=== PATIENT | female | born 1965 | race Caucasian/White ===

== ENCOUNTER 2019-12-28 08:45 | Inpatient (IN) | payer MEDICARE, MEDICAID ==
[~2019-12-28] VITALS: Ht 162.6 cm; Wt 82.2 kg
[2019-12-28] MEDS ORDERED: OLANZapine 5 MG RAPDIS TABLET PO PRN (11:45)
[2019-12-28] MEDS ORDERED: LORazepam 2 MG TABLET PO PRN (11:45)
[2019-12-28] MEDS ORDERED: GuaiFENesin/D-METHORPHAN [SUGAR-FREE] 200-20MG/10 ML SYRUP UDCUP PO PRN (11:45)
[2019-12-28] MEDS ORDERED: PROMETHAZINE HCL 25 MG TABLET PO PRN (11:45)
[2019-12-28] MEDS ORDERED: LOPERAMIDE HCL 2 MG CAPSULE PO PRN (11:45)
[2019-12-28] MEDS ORDERED: ACETAMINOPHEN 325 MG TABLET PO PRN (11:45)
[2019-12-28] MEDS ORDERED: MAG HYDROX/AL HYDROX/SIMETH ES 30 ML SUSPENSION UDCUP PO PRN (11:45)
[2019-12-28] MEDS ORDERED: MAGNESIUM HYDROXIDE SUSPENSION 30 ML UDCUP PO PRN (11:45)
[2019-12-28] MEDS ORDERED: TUBERCULIN, PURIFIED PROTEIN DERIVATIVE 5 TU/0.1 ML SYRINGE ID ONE (11:45)
[2019-12-28] MEDS ORDERED: ZOLPIDEM TARTRATE 10 MG TABLET PO PRN (11:45)
[2019-12-28] MEDS ORDERED: HydrOXYzine PAMOATE 50 MG CAPSULE PO PRN (11:45)
[2019-12-28 12:09] VITALS: BP 100/63
[2019-12-28] MEDS ORDERED: PNEUMOCOCCAL VACCINE POLYVALENT 0.5 ML VIAL [PPSV23] IM ONE (13:15)
[2019-12-28] MEDS ORDERED: QUEtiapine FUMARATE 100 MG TABLET PO PRN (13:45)
[2019-12-28] MEDS: THIAMINE 100 MG TABLET PO SCH (17:12)
[2019-12-28] MEDS: NITROFURANTOIN/NITROFURAN MAC 100 MG CAPSULE [MACROBID] PO SCH (18:29)
[2019-12-28 18:30] VITALS: BP 105/69
[2019-12-28] MEDS: IBUPROFEN 600 MG TABLET PO PRN (18:30)
[2019-12-28 20:22] VITALS: BP 122/81
[2019-12-28] MEDS: QUEtiapine FUMARATE 200 MG TABLET PO SCH (20:22)
[2019-12-28] MEDS ORDERED: OLANZapine 5 MG RAPDIS TABLET PO SCH (21:00)
[2019-12-29 06:48] LABS: BASOPHILS % (AUTO) 0.1 % (0.0-2.0); EOSINOPHILS % (AUTO) 0 % (1.0-6.0); HEMATOCRIT 36.7 % (36-46); HEMOGLOBIN 12.5 g/dL (12.0-16.0); LYMPHOCYTES # (AUTO) 1.4 K/uL (1.0-4.8); LYMPHOCYTES % (AUTO) 32.6 % (22.0-44.0); MEAN CORPUSCULAR HEMOGLOBIN 31.2 pg (26.0-34.0); MEAN CORPUSCULAR VOLUME 92 fL (80-100); MONOCYTES # (AUTO) 0.5 K/uL (0.1-1.0); MONOCYTES % (AUTO) 11.9 % (2.0-9.0); NEUTROPHILS # (AUTO) 2.5 K/uL (1.8-7.7); NEUTROPHILS % (AUTO) 55.4 % (40.0-70.0); PLATELET COUNT (AUTO) 228 K/uL (150-450); RED CELL DISTRIBUTION WIDTH 12.6 % (11.5-14.5)
[2019-12-29 07:17] LABS: ALANINE AMINOTRANSFERASE 18 U/L (12-78); ALBUMIN 3.3 g/dL (3.4-5.0); ALKALINE PHOSPHATASE 91 U/L (46-116); ANION GAP 10 mmol/L (8-16); ASPARTATE AMINOTRANSFERASE 11 U/L (15-37); BILIRUBIN,TOTAL 0.2 mg/dL (0.1-1.0); CALCIUM, TOTAL 9.3 mg/dL (8.8-10.5); CARBON DIOXIDE 24 mmol/L (22-29); CHLORIDE 106 mmol/L (98-107); CHOL/HDL RATIO 3.4 (3.9-5.7); CHOLESTEROL 205 mg/dL (131-200); CREATININE 0.95 mg/dL (0.60-1.30); FREE T4 (FREE THYROXINE) 0.85 ng/dL (0.76-1.46); GLOMERULAR FILTR. RATE CALC > 60 mL/min (>60); GLUCOSE,RANDOM 109 mg/dL (70-110); HDL CHOLESTEROL 60 mg/dL (40-60); LDL CHOL (CALC.) 131 mg/dL (0-130); POTASSIUM 4.2 mmol/L (3.5-5.1); SODIUM SERUM 140 mmol/L (136-145); TOTAL PROTEIN, SERUM 6.1 g/dL (6.4-8.2); TRIGLYCERIDES 72 mg/dL (15-150); UREA NITROGEN, BLOOD 25 mg/dL (7-18)
[2019-12-29 07:29] LABS: HEMOGLOBIN A1C 4.9 % (3.8-5.6)
[2019-12-29 08:00] VITALS: BP 98/63
[2019-12-29] MEDS ORDERED: FLUoxetine HCL 20 MG CAPSULE PO SCH (09:00)
[2019-12-29] MEDS ORDERED: OMEGA-3/DHA/EPA/FISH OIL 1,000 MG CAPSULE PO SCH (09:00)
[2019-12-29] MEDS ORDERED: FOLIC ACID 1 MG TABLET PO SCH (09:00)
[2019-12-29] MEDS ORDERED: NALTREXONE HCL 50 MG TABLET PO SCH (09:00)
[2019-12-29] MEDS ORDERED: MULTIVITAMINS WITH MINERALS, THERAPEUTIC TABLET PO SCH (09:00)
[2019-12-29] MEDS: NITROFURANTOIN/NITROFURAN MAC 100 MG CAPSULE [MACROBID] PO SCH ×2 (10:05→16:08)
[2019-12-29] MEDS: THIAMINE 100 MG TABLET PO SCH ×2 (10:05→16:08)
[2019-12-29] MEDS: BuPROPion HCL XL 150 MG ER TABLET PO SCH (10:06)
[2019-12-29] MEDS: IBUPROFEN 600 MG TABLET PO PRN (13:15)
[2019-12-29 16:52] VITALS: BP 117/65
[2019-12-29] MEDS: QUEtiapine FUMARATE 200 MG TABLET PO SCH (20:05)
[2019-12-29] MEDS ORDERED: PROMETHAZINE HCL 25 MG TABLET PO PRN ×2 (21:30)
[2019-12-29] MEDS ORDERED: QUEtiapine FUMARATE 100 MG TABLET PO PRN (21:30)
[2019-12-29] MEDS ORDERED: LORazepam 1 MG TABLET PO PRN (21:30)
[2019-12-29] MEDS ORDERED: ZOLPIDEM TARTRATE 10 MG TABLET PO PRN (21:30)
[2019-12-29] MEDS ORDERED: LOPERAMIDE HCL 2 MG CAPSULE PO PRN ×2 (21:30)
[2019-12-29] MEDS ORDERED: HydrOXYzine PAMOATE 50 MG CAPSULE PO PRN (21:30)
[2019-12-29] MEDS ORDERED: MAG HYDROX/AL HYDROX/SIMETH ES 30 ML SUSPENSION UDCUP PO PRN (21:30)
[2019-12-29] MEDS ORDERED: GuaiFENesin/D-METHORPHAN [SUGAR-FREE] 200-20MG/10 ML SYRUP UDCUP PO PRN (21:30)
[2019-12-29 23:40] VITALS: BP 106/66
[2019-12-29] MEDS: IBUPROFEN 800 MG TABLET PO PRN (23:41)
[2019-12-30] MEDS: BuPROPion HCL XL 150 MG ER TABLET PO SCH (08:52)
[2019-12-30] MEDS: IBUPROFEN 800 MG TABLET PO PRN ×2 (08:54→16:54)
[2019-12-30 08:56] VITALS: BP 110/72
[2019-12-30 09:13] VITALS: BP 112/73
[2019-12-30 09:56] VITALS: BP 109/67
[2019-12-30 16:38] VITALS: BP 94/62
[2019-12-30 16:59] VITALS: BP 102/78
[2019-12-30] MEDS: QUEtiapine FUMARATE 200 MG TABLET PO SCH (20:10)
[2019-12-31 08:00] VITALS: BP 126/82
[2019-12-31] MEDS: BuPROPion HCL XL 150 MG ER TABLET PO SCH (08:16)
[2019-12-31] MEDS: IBUPROFEN 800 MG TABLET PO PRN (12:41)
[2019-12-31] MEDS: MAGNESIUM HYDROXIDE SUSPENSION 30 ML UDCUP PO PRN (13:17)
[2019-12-31 16:20] VITALS: BP 101/81
[2019-12-31] MEDS: QUEtiapine FUMARATE 200 MG TABLET PO SCH (21:16)
[2020-01-01 02:21] VITALS: BP 94/61
[2020-01-01] MEDS: IBUPROFEN 800 MG TABLET PO PRN (02:22)
[2020-01-01 08:00] VITALS: BP 106/65
[2020-01-01] MEDS: BuPROPion HCL XL 150 MG ER TABLET PO SCH (08:05)
[2020-01-01] MEDS: MODAFINIL 100 MG TABLET PO SCH (08:05)
[2020-01-01 16:30] VITALS: BP 131/75
[2020-01-01] MEDS: QUEtiapine FUMARATE 200 MG TABLET PO SCH (20:23)
[2020-01-02 05:17] VITALS: BP 120/84
[2020-01-02] MEDS: IBUPROFEN 800 MG TABLET PO PRN (05:17)
[2020-01-02 08:00] VITALS: BP 108/66
[2020-01-02] MEDS: MAGNESIUM HYDROXIDE SUSPENSION 30 ML UDCUP PO PRN (08:36)
[2020-01-02] MEDS: BuPROPion HCL XL 150 MG ER TABLET PO SCH ×2 (08:37→09:48)
[2020-01-02] MEDS: MODAFINIL 100 MG TABLET PO SCH (10:25)
[2020-01-02 16:08] VITALS: BP 136/72
[2020-01-02] MEDS: QUEtiapine FUMARATE 200 MG TABLET PO SCH (20:39)
[2020-01-03 02:50] VITALS: BP 120/78
[2020-01-03] MEDS: IBUPROFEN 800 MG TABLET PO PRN ×2 (02:53→19:04)
[2020-01-03] MEDS: MODAFINIL 100 MG TABLET PO SCH (08:51)
[2020-01-03] MEDS: BuPROPion HCL XL 150 MG ER TABLET PO SCH (08:51)
[2020-01-03 09:00] VITALS: BP 108/69
[2020-01-03 16:08] VITALS: BP 98/62
[2020-01-03 19:02] VITALS: BP 102/67
[2020-01-03] MEDS: QUEtiapine FUMARATE 200 MG TABLET PO SCH (20:06)
[2020-01-04 04:30] VITALS: BP 118/76
[2020-01-04] MEDS: IBUPROFEN 800 MG TABLET PO PRN (04:31)
[2020-01-04] MEDS: BuPROPion HCL XL 150 MG ER TABLET PO SCH (09:14)
[2020-01-04] MEDS: MODAFINIL 100 MG TABLET PO SCH (09:20)
[2020-01-04 16:00] VITALS: BP 119/65
[2020-01-04] MEDS: MAGNESIUM HYDROXIDE SUSPENSION 30 ML UDCUP PO PRN (17:26)
[2020-01-04] MEDS: QUEtiapine FUMARATE 200 MG TABLET PO SCH (20:29)
[2020-01-05] MEDS: BuPROPion HCL XL 150 MG ER TABLET PO SCH (08:05)
[2020-01-05] MEDS: DOCUSATE SODIUM 250 MG CAPSULE PO SCH ×2 (08:05→16:03)
[2020-01-05 08:45] VITALS: BP 103/76
[2020-01-05] MEDS: MODAFINIL 100 MG TABLET PO SCH (09:00)
[2020-01-05] MEDS: IBUPROFEN 800 MG TABLET PO PRN (13:45)
[2020-01-05 16:00] VITALS: BP 100/68
[2020-01-05] MEDS: QUEtiapine FUMARATE 200 MG TABLET PO SCH (20:08)
[2020-01-06 08:00] VITALS: BP 106/68
[2020-01-06] MEDS: DOCUSATE SODIUM 250 MG CAPSULE PO SCH ×2 (08:06→16:17)
[2020-01-06] MEDS: BuPROPion HCL XL 150 MG ER TABLET PO SCH (08:06)
[2020-01-06] MEDS: IBUPROFEN 800 MG TABLET PO PRN ×2 (10:40→22:38)
[2020-01-06 16:30] VITALS: BP 109/70
[2020-01-06] MEDS: QUEtiapine FUMARATE 200 MG TABLET PO SCH (20:26)
[2020-01-06 22:33] VITALS: BP 110/68
[2020-01-07 08:00] VITALS: BP 113/76
[2020-01-07] MEDS: IBUPROFEN 800 MG TABLET PO PRN ×2 (08:18→16:18)
[2020-01-07] MEDS: DOCUSATE SODIUM 250 MG CAPSULE PO SCH ×2 (08:18→16:06)
[2020-01-07] MEDS: BuPROPion HCL XL 150 MG ER TABLET PO SCH (08:19)
[2020-01-07 16:31] VITALS: BP 94/65
[2020-01-07] MEDS: QUEtiapine FUMARATE 200 MG TABLET PO SCH (20:06)
[2020-01-07] MEDS ORDERED: BUPR-47 PO (20:23)
[2020-01-07] MEDS ORDERED: QUET200T29 PO (20:23)
[2020-01-07 20:55] VITALS: BP 102/69
[2020-01-08] MEDS: IBUPROFEN 800 MG TABLET PO PRN ×2 (05:13→11:22)
[2020-01-08] MEDS: BuPROPion HCL XL 150 MG ER TABLET PO SCH (09:09)
[2020-01-08] MEDS: DOCUSATE SODIUM 250 MG CAPSULE PO SCH (09:09)
[2020-01-08 09:38] VITALS: BP 98/58
[2020-01-08] MEDS ORDERED: DOCU-350 PO (13:16)
== END 2020-01-08 15:15 | disposition home or self-care (01) | DRG 885 ==
LOC: B3A 10:45 → UNDOADMIN 10:45 → 3EX 10:46
PROVIDERS: ADMIT Psychiatry & Neurology Psychiatry; ATTEND Psychiatry & Neurology Psychiatry
DX: F33.2 Major depressive disorder, recurrent severe without psychotic features (principal); R45.851 Suicidal ideations; F25.9 Schizoaffective disorder, unspecified; F22 Delusional disorders; F25.1 Schizoaffective disorder, depressive type; Z91.14 Patient's other noncompliance with medication regimen; Z55.9 Problems related to education and literacy, unspecified; Z59.9 Problem related to housing and economic circumstances, unspecified; Z65.3 Problems related to other legal circumstances; Z79.899 Other long term (current) drug therapy; Z88.0 Allergy status to penicillin; Z28.21 Immunization not carried out because of patient refusal
CPT/HCPCS: 83036; 84439; 84443; 86592; 93005; G0378

== ENCOUNTER 2020-12-21 19:41 | Inpatient (IN) | payer MEDICARE, MEDICAID ==
[~2020-12-21] VITALS: Ht 162.6 cm; Wt 87.2 kg
[~2020-12-21 19:41] MED LIST: BUPR-93 PO; QUET200T PO
[2020-12-21] MEDS ORDERED: LORazepam 2 MG TABLET PO PRN (21:00)
[2020-12-21] MEDS ORDERED: HALOPERIDOL 5 MG TABLET PO PRN (21:00)
[2020-12-21] MEDS ORDERED: ZOLPIDEM TARTRATE 10 MG TABLET PO PRN (21:00)
[2020-12-21 21:04] LABS: BASOPHILS % (AUTO) 0.4 % (0.0-2.0); EOSINOPHILS % (AUTO) 0 % (1.0-6.0); HEMATOCRIT 35.9 % (36-46); HEMOGLOBIN 11.6 g/dL (12.0-16.0); LYMPHOCYTES # (AUTO) 1.7 K/uL (1.0-4.8); LYMPHOCYTES % (AUTO) 23.9 % (22.0-44.0); MEAN CORPUSCULAR HGB CONC 32.3 G/dL (31.0-37.0); MEAN CORPUSCULAR VOLUME 87 fL (80-100); MONOCYTES # (AUTO) 0.7 K/uL (0.1-1.0); MONOCYTES % (AUTO) 10.3 % (2.0-9.0); NEUTROPHILS # (AUTO) 4.7 K/uL (1.8-7.7); NEUTROPHILS % (AUTO) 65.4 % (40.0-70.0); PLATELET COUNT (AUTO) 256 K/uL (150-450); RED BLOOD CELL COUNT(AUTO) 4.14 MIL/uL (4.00-5.20); RED CELL DISTRIBUTION WIDTH 13.6 % (11.5-14.5)
[2020-12-21 21:14] LABS: ANION GAP 11 mmol/L (8-16); CALCIUM, TOTAL 8.7 mg/dL (8.8-10.5); CARBON DIOXIDE 27 mmol/L (22-29); CHLORIDE 105 mmol/L (98-107); CREATININE 1.01 mg/dL (0.60-1.30); GLOMERULAR FILTR. RATE CALC 56 mL/min (>60); GLUCOSE,RANDOM 119 mg/dL (70-110); POTASSIUM 3.9 mmol/L (3.5-5.1); SODIUM SERUM 143 mmol/L (136-145); UREA NITROGEN, BLOOD 29 mg/dL (7-18)
[2020-12-21 21:20] LABS: ALANINE AMINOTRANSFERASE 23 U/L (12-78); ALBUMIN 3.8 g/dL (3.4-5.0); ALKALINE PHOSPHATASE 141 U/L (46-116); ASPARTATE AMINOTRANSFERASE 12 U/L (15-37); BILIRUBIN,TOTAL 0.1 mg/dL (0.1-1.0); TOTAL PROTEIN, SERUM 7.1 g/dL (6.4-8.2)
[2020-12-21 22:49] LABS: COVID AG,FIA SOURCE NASOPHARYNGEAL
[2020-12-21] MEDS ORDERED: QUEtiapine FUMARATE 100 MG TABLET PO ONE (23:45)
[2020-12-22 02:16] LABS: CHOL/HDL RATIO 3.5 (3.9-5.7); CHOLESTEROL 192 mg/dL (131-200); HDL CHOLESTEROL 55 mg/dL (40-60); LDL CHOL (CALC.) 111 mg/dL (0-130); TRIGLYCERIDES 128 mg/dL (15-150)
[2020-12-22] MEDS ORDERED: NICOTINE 14 MG/24 HOUR PATCH TD PRN (06:30)
[2020-12-22] MEDS ORDERED: GuaiFENesin/D-METHORPHAN [SUGAR-FREE] 200-20MG/10 ML SYRUP UDCUP PO PRN (06:30)
[2020-12-22] MEDS ORDERED: CloNIDine HCL 0.1 MG TABLET PO PRN (06:30)
[2020-12-22] MEDS ORDERED: PETROLATUM,WHITE 28 GM JELLY TP PRN (06:30)
[2020-12-22] MEDS ORDERED: DOCUSATE SODIUM 100 MG CAPSULE PO PRN (06:30)
[2020-12-22] MEDS ORDERED: ONDANSETRON HCL 4 MG TABLET PO PRN (06:30)
[2020-12-22] MEDS ORDERED: MAGNESIUM HYDROXIDE SUSPENSION 30 ML UDCUP PO PRN (06:30)
[2020-12-22] MEDS ORDERED: ACETAMINOPHEN 325 MG TABLET PO PRN (06:30)
[2020-12-22] MEDS ORDERED: LOPERAMIDE HCL 2 MG CAPSULE PO PRN (06:30)
[2020-12-22] MEDS ORDERED: ALBUTEROL SULFATE HFA 90 MCG/PUFF 8 GM INHALER IH PRN (06:30)
[2020-12-22 08:48] VITALS: BP 131/78
[2020-12-22 16:04] VITALS: BP 121/77
[2020-12-22 16:47] LABS: GLUCOMETER DEV NAME(LOC) ERT.5; GLUCOSE,POINT OF CARE 147 MG/DL (70-110)
[2020-12-22] MEDS: QUEtiapine FUMARATE 200 MG TABLET PO SCH (21:24)
[2020-12-23] MEDS: IBUPROFEN 400 MG TABLET PO PRN (04:51)
[2020-12-23 04:56] VITALS: BP 103/58
[2020-12-23] MEDS: BuPROPion HCL XL 150 MG ER TABLET PO SCH (08:27)
[2020-12-23 08:44] VITALS: BP 109/70
[2020-12-23 11:59] VITALS: BP 124/67
[2020-12-23] MEDS: ASPIRIN/ACETAMINOPHEN/CAFFEINE 250-250-65 MG TABLET PO PRN ×2 (11:59→18:41)
[2020-12-23 16:16] VITALS: BP 113/77
[2020-12-23 18:41] VITALS: BP 134/74
[2020-12-23] MEDS: QUEtiapine FUMARATE 200 MG TABLET PO SCH (20:13)
[2020-12-24 09:12] VITALS: BP 103/63
[2020-12-24] MEDS: BuPROPion HCL XL 150 MG ER TABLET PO SCH (09:47)
[2020-12-24] MEDS: ASPIRIN/ACETAMINOPHEN/CAFFEINE 250-250-65 MG TABLET PO PRN (14:32)
[2020-12-24 14:34] VITALS: BP 142/98
[2020-12-24 16:17] VITALS: BP 137/85
[2020-12-24] MEDS: QUEtiapine FUMARATE 200 MG TABLET PO SCH (20:13)
[2020-12-25 01:30] VITALS: BP 122/80
[2020-12-25] MEDS: ASPIRIN/ACETAMINOPHEN/CAFFEINE 250-250-65 MG TABLET PO PRN ×2 (01:37→19:58)
[2020-12-25] MEDS: BuPROPion HCL XL 150 MG ER TABLET PO SCH (08:18)
[2020-12-25 16:31] VITALS: BP 122/81
[2020-12-25 19:55] VITALS: BP 112/67
[2020-12-25] MEDS: QUEtiapine FUMARATE 200 MG TABLET PO SCH (20:42)
[2020-12-26] MEDS: BuPROPion HCL XL 150 MG ER TABLET PO SCH (07:56)
[2020-12-26 09:30] VITALS: BP 112/73
[2020-12-26 11:26] VITALS: BP 118/76
[2020-12-26] MEDS: ASPIRIN/ACETAMINOPHEN/CAFFEINE 250-250-65 MG TABLET PO PRN (11:26)
[2020-12-26 16:00] VITALS: BP 107/68
[2020-12-26] MEDS: QUEtiapine FUMARATE 200 MG TABLET PO SCH (20:01)
[2020-12-27] MEDS: BuPROPion HCL XL 150 MG ER TABLET PO SCH (08:07)
[2020-12-27 08:20] VITALS: BP 104/69
[2020-12-27 09:17] VITALS: BP 127/74
[2020-12-27] MEDS: ASPIRIN/ACETAMINOPHEN/CAFFEINE 250-250-65 MG TABLET PO PRN (09:17)
[2020-12-27 17:09] VITALS: BP 136/61
[2020-12-27 17:10] VITALS: BP 139/84
[2020-12-27] MEDS: QUEtiapine FUMARATE 200 MG TABLET PO SCH (20:33)
[2020-12-28] MEDS: ASPIRIN/ACETAMINOPHEN/CAFFEINE 250-250-65 MG TABLET PO PRN ×2 (02:27→16:43)
[2020-12-28] MEDS: BuPROPion HCL XL 150 MG ER TABLET PO SCH (08:41)
[2020-12-28 09:00] VITALS: BP 110/77
[2020-12-28 13:31] LABS: COVID AG,FIA SOURCE NASOPHARYNGEAL
[2020-12-28 16:50] VITALS: BP 115/85
[2020-12-28] MEDS: QUEtiapine FUMARATE 200 MG TABLET PO SCH (20:12)
[2020-12-29 04:45] VITALS: BP 113/80
[2020-12-29] MEDS: ASPIRIN/ACETAMINOPHEN/CAFFEINE 250-250-65 MG TABLET PO PRN ×2 (04:56→20:02)
[2020-12-29] MEDS: BuPROPion HCL XL 150 MG ER TABLET PO SCH (10:41)
[2020-12-29 16:50] VITALS: BP 115/69
[2020-12-29] MEDS: QUEtiapine FUMARATE 200 MG TABLET PO SCH (21:03)
[2020-12-30] MEDS: ASPIRIN/ACETAMINOPHEN/CAFFEINE 250-250-65 MG TABLET PO PRN ×2 (06:10→18:54)
[2020-12-30 08:00] VITALS: BP 121/89
[2020-12-30] MEDS: BuPROPion HCL XL 150 MG ER TABLET PO SCH (08:03)
[2020-12-30 16:14] VITALS: BP 110/68
[2020-12-30 18:54] VITALS: BP 111/72
[2020-12-30] MEDS: QUEtiapine FUMARATE 200 MG TABLET PO SCH (20:29)
[2020-12-31] MEDS: ASPIRIN/ACETAMINOPHEN/CAFFEINE 250-250-65 MG TABLET PO PRN ×3 (05:59→14:07)
[2020-12-31] MEDS: BuPROPion HCL XL 150 MG ER TABLET PO SCH (08:08)
[2020-12-31 08:59] VITALS: BP 141/88
[2020-12-31 09:04] VITALS: BP 141/88
[2020-12-31 14:07] VITALS: BP 126/74
[2020-12-31 15:53] VITALS: BP 119/75
[2020-12-31] MEDS: IBUPROFEN 400 MG TABLET PO PRN (15:53)
[2020-12-31] MEDS: QUEtiapine FUMARATE 200 MG TABLET PO SCH (20:52)
[2021-01-01] MEDS: ASPIRIN/ACETAMINOPHEN/CAFFEINE 250-250-65 MG TABLET PO PRN ×2 (06:49→15:50)
[2021-01-01] MEDS: BuPROPion HCL XL 150 MG ER TABLET PO SCH (08:12)
[2021-01-01 15:50] VITALS: BP 125/77
[2021-01-01 16:44] VITALS: BP 123/80
[2021-01-01] MEDS ORDERED: LORazepam 2 MG/ML VIAL ONE (19:04)
[2021-01-01] MEDS ORDERED: LORazepam 2 MG/ML VIAL IM ONE (19:04)
[2021-01-01] MEDS ORDERED: HALOPERIDOL LACTATE 5 MG/ML VIAL IM ONE (19:04)
[2021-01-01] MEDS ORDERED: HALOPERIDOL LACTATE 5 MG/ML VIAL ONE (19:05)
[2021-01-01] MEDS: QUEtiapine FUMARATE 200 MG TABLET PO SCH (20:45)
[2021-01-02] MEDS: BuPROPion HCL XL 150 MG ER TABLET PO SCH (09:31)
[2021-01-02] MEDS: ASPIRIN/ACETAMINOPHEN/CAFFEINE 250-250-65 MG TABLET PO PRN ×2 (11:05→20:05)
[2021-01-02 11:30] VITALS: BP 110/69
[2021-01-02 12:30] VITALS: BP 119/63
[2021-01-02] MEDS: QUEtiapine FUMARATE 200 MG TABLET PO SCH (20:05)
[2021-01-03] MEDS: ASPIRIN/ACETAMINOPHEN/CAFFEINE 250-250-65 MG TABLET PO PRN ×2 (06:37→19:09)
[2021-01-03 06:42] VITALS: BP 115/72
[2021-01-03] MEDS: BuPROPion HCL XL 150 MG ER TABLET PO SCH (08:29)
[2021-01-03 09:58] VITALS: BP 120/79
[2021-01-03 16:14] VITALS: BP 133/70
[2021-01-03 19:09] VITALS: BP 128/69
[2021-01-03] MEDS: QUEtiapine FUMARATE 200 MG TABLET PO SCH (20:09)
[2021-01-04 08:10] VITALS: BP 138/81
[2021-01-04] MEDS: ASPIRIN/ACETAMINOPHEN/CAFFEINE 250-250-65 MG TABLET PO PRN ×2 (08:15→16:14)
[2021-01-04] MEDS: BuPROPion HCL XL 150 MG ER TABLET PO SCH (08:15)
[2021-01-04 09:10] VITALS: BP 138/81
[2021-01-04] MEDS: MAG HYDROX/AL HYDROX/SIMETH ES 30 ML SUSPENSION UDCUP PO PRN ×2 (10:56→17:57)
[2021-01-04] MEDS: IBUPROFEN 400 MG TABLET PO PRN (12:53)
[2021-01-04 15:16] LABS: COVID AG,FIA SOURCE NASOPHARYNGEAL
[2021-01-04 16:11] VITALS: BP 115/59
[2021-01-04] MEDS: QUEtiapine FUMARATE 200 MG TABLET PO SCH (20:02)
[2021-01-05] MEDS: ASPIRIN/ACETAMINOPHEN/CAFFEINE 250-250-65 MG TABLET PO PRN (07:37)
[2021-01-05] MEDS: MAG HYDROX/AL HYDROX/SIMETH ES 30 ML SUSPENSION UDCUP PO PRN (08:10)
[2021-01-05] MEDS: BuPROPion HCL XL 150 MG ER TABLET PO SCH (08:34)
[2021-01-05] MEDS ORDERED: OMEPRAZOLE 20 MG CAPSULE PO SCH (09:00)
[2021-01-05] MEDS ORDERED: OMEP20 PO (09:09)
== END 2021-01-05 09:50 | disposition home or self-care (01) | DRG 885 ==
LOC: EMS 19:44 → 3EX 12-22 02:00
PROVIDERS: ADMIT Psychiatry & Neurology Psychiatry; ATTEND Psychiatry & Neurology Psychiatry
DX: F25.9 Schizoaffective disorder, unspecified (principal); R45.851 Suicidal ideations; F31.9 Bipolar disorder, unspecified; D64.9 Anemia, unspecified; E83.51 Hypocalcemia; E86.0 Dehydration; F17.200 Nicotine dependence, unspecified, uncomplicated; F12.90 Cannabis use, unspecified, uncomplicated; F43.10 Post-traumatic stress disorder, unspecified; F60.3 Borderline personality disorder; Z88.0 Allergy status to penicillin; Z79.899 Other long term (current) drug therapy; Z20.822 Contact with and (suspected) exposure to COVID-19
CPT/HCPCS: 80053; 80061; 82962; 85025; 99285; G0378; G0480; J1630; J2060

== ENCOUNTER 2021-03-16 11:42 | Inpatient (IN) | payer MEDICARE, MEDICAID ==
[~2021-03-16] VITALS: Ht 162.6 cm
[~2021-03-16 11:42] MED LIST changes: -BUPR-93 PO
[2021-03-16] MEDS ORDERED: HALOPERIDOL 5 MG TABLET PO PRN (12:15)
[2021-03-16] MEDS ORDERED: LORazepam 2 MG TABLET PO PRN (12:15)
[2021-03-16] MEDS ORDERED: ZOLPIDEM TARTRATE 10 MG TABLET PO PRN (12:15)
[2021-03-16 13:45] VITALS: BP 118/70
[2021-03-16 16:04] VITALS: BP 134/26
[2021-03-16] MEDS ORDERED: SUMAtriptan SUCCINATE 25 MG TABLET PO PRN (18:45)
[2021-03-16] MEDS ORDERED: ACETAMINOPHEN 325 MG TABLET PO PRN (20:15)
[2021-03-16] MEDS ORDERED: BACITRACIN 28 GM OINTMENT TP PRN (20:15)
[2021-03-16] MEDS ORDERED: MAGNESIUM HYDROXIDE SUSPENSION 30 ML UDCUP PO PRN (20:15)
[2021-03-16] MEDS ORDERED: ONDANSETRON HCL 4 MG TABLET PO PRN (20:15)
[2021-03-16] MEDS ORDERED: DOCUSATE SODIUM 100 MG CAPSULE PO PRN (20:15)
[2021-03-16] MEDS ORDERED: CloNIDine HCL 0.1 MG TABLET PO PRN (20:15)
[2021-03-16] MEDS ORDERED: LOPERAMIDE HCL 2 MG CAPSULE PO PRN (20:15)
[2021-03-16] MEDS ORDERED: ALBUTEROL SULFATE HFA 90 MCG/PUFF 8 GM INHALER IH PRN (20:15)
[2021-03-16] MEDS ORDERED: BENZOCAINE/MENTHOL LOZENGE PO PRN (20:15)
[2021-03-16] MEDS ORDERED: PETROLATUM,WHITE 28 GM JELLY TP PRN (20:15)
[2021-03-16] MEDS: QUEtiapine FUMARATE 100 MG TABLET PO PRN (21:00)
[2021-03-16] MEDS ORDERED: QUEtiapine FUMARATE 100 MG TABLET PO SCH (21:00)
[2021-03-16] MEDS ORDERED: MELATONIN 5 MG TABLET PO SCH (21:00)
[2021-03-17 03:25] VITALS: BP 139/87
[2021-03-17] MEDS: IBUPROFEN 600 MG TABLET PO PRN ×3 (03:26→21:34)
[2021-03-17] MEDS ORDERED: ASPIRIN/ACETAMINOPHEN/CAFFEINE 250-250-65 MG TABLET PO ONE (08:45)
[2021-03-17] MEDS ORDERED: QUEtiapine FUMARATE 25 MG TABLET PO SCH (09:00)
[2021-03-17] MEDS ORDERED: TROLAMINE SALICYLATE/ALOE VERA 10% 85 GM CREAM TP PRN (10:00)
[2021-03-17] MEDS ORDERED: ASPIRIN/ACETAMINOPHEN/CAFFEINE 250-250-65 MG TABLET PO PRN (16:00)
[2021-03-17 16:15] VITALS: BP 121/69
[2021-03-17 17:53] VITALS: BP 130/74
[2021-03-17 18:53] VITALS: BP 125/70
[2021-03-17] MEDS: QUEtiapine FUMARATE 200 MG TABLET PO SCH (20:06)
[2021-03-17 21:34] VITALS: BP 126/72
[2021-03-17 22:34] VITALS: BP 128/70
[2021-03-18 08:00] VITALS: BP 110/70
[2021-03-18] MEDS: ASPIRIN/ACETAMINOPHEN/CAFFEINE 250-250-65 MG TABLET PO PRN ×2 (08:07→21:04)
[2021-03-18] MEDS: BuPROPion HCL XL 150 MG ER TABLET PO SCH (08:07)
[2021-03-18 09:00] VITALS: BP 107/76
[2021-03-18 09:27] VITALS: BP 107/46
[2021-03-18 16:09] VITALS: BP 124/74
[2021-03-18] MEDS: QUEtiapine FUMARATE 200 MG TABLET PO SCH (21:03)
[2021-03-18 21:04] VITALS: BP 122/80
[2021-03-19] MEDS: ASPIRIN/ACETAMINOPHEN/CAFFEINE 250-250-65 MG TABLET PO PRN ×2 (08:50→20:05)
[2021-03-19] MEDS: BuPROPion HCL XL 150 MG ER TABLET PO SCH (08:50)
[2021-03-19 08:51] VITALS: BP 107/57
[2021-03-19 09:51] VITALS: BP 118/71
[2021-03-19 09:53] LABS: CHOL/HDL RATIO 3.8 (3.9-5.7)
[2021-03-19 10:16] LABS: FREE T4 (FREE THYROXINE) 0.98 ng/dL (0.76-1.46); THYROID STIMULATING HORMONE 0.74 uIU/mL (0.36-3.74)
[2021-03-19] MEDS: IBUPROFEN 600 MG TABLET PO PRN (16:18)
[2021-03-19 16:56] VITALS: BP 109/73
[2021-03-19] MEDS: QUEtiapine FUMARATE 200 MG TABLET PO SCH (20:02)
[2021-03-20] MEDS: BuPROPion HCL XL 150 MG ER TABLET PO SCH (08:36)
[2021-03-20] MEDS: ASPIRIN/ACETAMINOPHEN/CAFFEINE 250-250-65 MG TABLET PO PRN (10:14)
[2021-03-20 13:28] VITALS: BP 114/75
[2021-03-20 16:54] VITALS: BP 108/67
[2021-03-20] MEDS: QUEtiapine FUMARATE 200 MG TABLET PO SCH (21:13)
[2021-03-21 02:51] VITALS: BP 128/68
[2021-03-21] MEDS: ASPIRIN/ACETAMINOPHEN/CAFFEINE 250-250-65 MG TABLET PO PRN ×2 (02:51→15:45)
[2021-03-21] MEDS: BuPROPion HCL XL 150 MG ER TABLET PO SCH (08:37)
[2021-03-21 15:45] VITALS: BP 111/66
[2021-03-21 16:00] VITALS: BP 109/72
[2021-03-21] MEDS: QUEtiapine FUMARATE 200 MG TABLET PO SCH (20:55)
[2021-03-22] MEDS: BuPROPion HCL XL 150 MG ER TABLET PO SCH (08:29)
[2021-03-22 08:30] VITALS: BP 96/52
[2021-03-22] MEDS: ASPIRIN/ACETAMINOPHEN/CAFFEINE 250-250-65 MG TABLET PO PRN ×2 (08:30→21:10)
[2021-03-22 09:30] VITALS: BP 106/62
[2021-03-22 16:00] VITALS: BP 110/73
[2021-03-22] MEDS: MAG HYDROX/AL HYDROX/SIMETH ES 30 ML SUSPENSION UDCUP PO PRN (16:40)
[2021-03-22 21:10] VITALS: BP 111/87
[2021-03-22] MEDS: QUEtiapine FUMARATE 200 MG TABLET PO SCH (21:10)
[2021-03-22 23:22] LABS: COVID AG,FIA SOURCE NASAL SWAB
[2021-03-23 08:08] VITALS: BP 101/61
[2021-03-23] MEDS: BuPROPion HCL XL 150 MG ER TABLET PO SCH (08:15)
[2021-03-23 08:16] VITALS: BP 102/69
[2021-03-23] MEDS: ASPIRIN/ACETAMINOPHEN/CAFFEINE 250-250-65 MG TABLET PO PRN ×2 (08:16→20:18)
[2021-03-23 09:17] VITALS: BP 130/64
[2021-03-23] MEDS: MAG HYDROX/AL HYDROX/SIMETH ES 30 ML SUSPENSION UDCUP PO PRN (12:12)
[2021-03-23 16:32] VITALS: BP 119/79
[2021-03-23] MEDS: QUEtiapine FUMARATE 200 MG TABLET PO SCH (20:11)
[2021-03-24] MEDS: BuPROPion HCL XL 150 MG ER TABLET PO SCH (08:12)
[2021-03-24] MEDS: IBUPROFEN 600 MG TABLET PO PRN (08:20)
[2021-03-24] MEDS: ASPIRIN/ACETAMINOPHEN/CAFFEINE 250-250-65 MG TABLET PO PRN (12:06)
[2021-03-24] MEDS: MAG HYDROX/AL HYDROX/SIMETH ES 30 ML SUSPENSION UDCUP PO PRN (13:37)
[2021-03-24 16:17] VITALS: BP 135/60
[2021-03-24] MEDS: OMEPRAZOLE 20 MG CAPSULE PO PRN (16:17)
[2021-03-24] MEDS: QUEtiapine FUMARATE 200 MG TABLET PO SCH (20:15)
[2021-03-25 00:10] VITALS: BP 109/68
[2021-03-25] MEDS: ASPIRIN/ACETAMINOPHEN/CAFFEINE 250-250-65 MG TABLET PO PRN ×2 (00:34→13:48)
[2021-03-25] MEDS: BuPROPion HCL XL 150 MG ER TABLET PO SCH (08:27)
[2021-03-25 13:48] VITALS: BP 109/77
[2021-03-25 17:10] VITALS: BP 90/70
[2021-03-25] MEDS: QUEtiapine FUMARATE 200 MG TABLET PO SCH (20:15)
[2021-03-26] MEDS: IBUPROFEN 600 MG TABLET PO PRN (04:10)
[2021-03-26] MEDS: ASPIRIN/ACETAMINOPHEN/CAFFEINE 250-250-65 MG TABLET PO PRN ×2 (06:48→18:53)
[2021-03-26 06:49] VITALS: BP 108/72
[2021-03-26] MEDS: BuPROPion HCL XL 150 MG ER TABLET PO SCH (08:50)
[2021-03-26] MEDS: OMEPRAZOLE 20 MG CAPSULE PO PRN (10:12)
[2021-03-26 16:25] VITALS: BP 118/69
[2021-03-26 18:53] VITALS: BP 115/80
[2021-03-26] MEDS: QUEtiapine FUMARATE 200 MG TABLET PO SCH (20:56)
[2021-03-27 08:10] VITALS: BP 129/79
[2021-03-27] MEDS: BuPROPion HCL XL 150 MG ER TABLET PO SCH (08:12)
[2021-03-27] MEDS: ASPIRIN/ACETAMINOPHEN/CAFFEINE 250-250-65 MG TABLET PO PRN ×2 (08:12→20:12)
[2021-03-27 08:13] VITALS: BP 129/79
[2021-03-27 09:13] VITALS: BP 119/72
[2021-03-27 16:46] VITALS: BP 116/79
[2021-03-27] MEDS: OMEPRAZOLE 20 MG CAPSULE PO PRN (19:31)
[2021-03-27] MEDS: QUEtiapine FUMARATE 200 MG TABLET PO SCH (20:03)
[2021-03-28 08:04] VITALS: BP 99/65
[2021-03-28] MEDS: BuPROPion HCL XL 150 MG ER TABLET PO SCH (08:35)
[2021-03-28] MEDS: OMEPRAZOLE 20 MG CAPSULE PO PRN (08:35)
[2021-03-28 11:34] VITALS: BP 111/64
[2021-03-28] MEDS: ASPIRIN/ACETAMINOPHEN/CAFFEINE 250-250-65 MG TABLET PO PRN (11:34)
[2021-03-28 12:34] VITALS: BP 110/69
[2021-03-28 16:39] VITALS: BP 104/79
[2021-03-28] MEDS: QUEtiapine FUMARATE 200 MG TABLET PO SCH (20:03)
[2021-03-28 20:14] LABS: COVID AG,FIA SOURCE NASAL SWAB
[2021-03-28 20:16] VITALS: BP 112/72
[2021-03-28] MEDS: IBUPROFEN 600 MG TABLET PO PRN (20:16)
[2021-03-28 21:16] VITALS: BP 110/75
[2021-03-29] MEDS: ASPIRIN/ACETAMINOPHEN/CAFFEINE 250-250-65 MG TABLET PO PRN ×2 (03:01→16:41)
[2021-03-29] MEDS: BuPROPion HCL XL 150 MG ER TABLET PO SCH (08:44)
[2021-03-29 16:41] VITALS: BP 126/78
[2021-03-29] MEDS: QUEtiapine FUMARATE 200 MG TABLET PO SCH (20:13)
[2021-03-30] MEDS: ASPIRIN/ACETAMINOPHEN/CAFFEINE 250-250-65 MG TABLET PO PRN ×2 (06:13→19:01)
[2021-03-30 08:00] VITALS: BP 108/72
[2021-03-30] MEDS: BuPROPion HCL XL 150 MG ER TABLET PO SCH (08:25)
[2021-03-30] MEDS: OMEPRAZOLE 20 MG CAPSULE PO PRN (08:25)
[2021-03-30 16:18] VITALS: BP 135/80
[2021-03-30] MEDS: QUEtiapine FUMARATE 200 MG TABLET PO SCH (20:12)
[2021-03-31 08:03] VITALS: BP 112/69
[2021-03-31] MEDS: BuPROPion HCL XL 150 MG ER TABLET PO SCH (08:03)
[2021-03-31] MEDS: ASPIRIN/ACETAMINOPHEN/CAFFEINE 250-250-65 MG TABLET PO PRN ×2 (08:03→20:30)
[2021-03-31 16:59] VITALS: BP 119/71
[2021-03-31 20:30] VITALS: BP 121/84
[2021-03-31] MEDS: QUEtiapine FUMARATE 200 MG TABLET PO SCH (21:12)
[2021-04-01] MEDS: MAG HYDROX/AL HYDROX/SIMETH ES 30 ML SUSPENSION UDCUP PO PRN (00:46)
[2021-04-01] MEDS: BuPROPion HCL XL 150 MG ER TABLET PO SCH (09:16)
[2021-04-01] MEDS: ASPIRIN/ACETAMINOPHEN/CAFFEINE 250-250-65 MG TABLET PO PRN (09:55)
[2021-04-01] MEDS: OMEPRAZOLE 20 MG CAPSULE PO PRN (09:56)
[2021-04-01] MEDS: IBUPROFEN 600 MG TABLET PO PRN (11:40)
[2021-04-01 17:22] VITALS: BP 120/77
[2021-04-01] MEDS: QUEtiapine FUMARATE 200 MG TABLET PO SCH (20:10)
[2021-04-02] MEDS: ASPIRIN/ACETAMINOPHEN/CAFFEINE 250-250-65 MG TABLET PO PRN ×2 (01:52→16:00)
[2021-04-02] MEDS: BuPROPion HCL XL 150 MG ER TABLET PO SCH (09:31)
[2021-04-02 13:59] LABS: COVID AG,FIA SOURCE NASOPHARYNGEAL
[2021-04-02 15:30] VITALS: BP 139/83
[2021-04-02] MEDS: QUEtiapine FUMARATE 200 MG TABLET PO SCH (20:29)
[2021-04-03] MEDS: QUEtiapine FUMARATE 100 MG TABLET PO PRN (00:01)
[2021-04-03] MEDS: ASPIRIN/ACETAMINOPHEN/CAFFEINE 250-250-65 MG TABLET PO PRN ×2 (05:30→13:58)
[2021-04-03] MEDS: BuPROPion HCL XL 150 MG ER TABLET PO SCH (08:51)
[2021-04-03] MEDS ORDERED: BUPR-49 PO (16:08)
[2021-04-03] MEDS ORDERED: QUET200T30 PO (16:08)
[2021-04-03] MEDS: MAG HYDROX/AL HYDROX/SIMETH ES 30 ML SUSPENSION UDCUP PO PRN ×2 (17:11→17:16)
== END 2021-04-03 17:33 | disposition home or self-care (01) | DRG 885 ==
LOC: 3EX 12:31 → 3EC 03-29 19:00
PROVIDERS: ADMIT Psychiatry & Neurology Psychiatry; ATTEND Psychiatry & Neurology Psychiatry
DX: F25.9 Schizoaffective disorder, unspecified (principal); R45.851 Suicidal ideations; F31.9 Bipolar disorder, unspecified; F41.9 Anxiety disorder, unspecified; G43.909 Migraine, unspecified, not intractable, without status migrainosus; G47.00 Insomnia, unspecified; K59.00 Constipation, unspecified; F12.90 Cannabis use, unspecified, uncomplicated; D64.9 Anemia, unspecified; M54.9 Dorsalgia, unspecified; R03.0 Elevated blood-pressure reading, without diagnosis of hypertension; Z20.822 Contact with and (suspected) exposure to COVID-19; M54.50 Low back pain, unspecified; Z71.51 Drug abuse counseling and surveillance of drug abuser; Z88.0 Allergy status to penicillin
CPT/HCPCS: 80061; 84439; 84443; G0378; Q9967

== ENCOUNTER 2021-05-18 08:11 | Inpatient (IN) | payer MEDICARE, MEDICAID ==
[~2021-05-18] VITALS: Ht 162.6 cm; Wt 86.3 kg
[~2021-05-18 08:11] MED LIST changes: +BUPR-49 PO; -QUET200T PO; +QUET200T30 PO
[2021-05-18] MEDS ORDERED: LORazepam 2 MG TABLET PO PRN (09:15)
[2021-05-18] MEDS ORDERED: ZOLPIDEM TARTRATE 10 MG TABLET PO PRN (09:15)
[2021-05-18] MEDS ORDERED: HALOPERIDOL 5 MG TABLET PO PRN (09:15)
[2021-05-18 11:00] VITALS: BP 125/74
[2021-05-18] MEDS ORDERED: PNEUMOCOCCAL VACCINE POLYVALENT 0.5 ML VIAL [PPSV23] IM. ONE (13:15)
[2021-05-18 16:24] VITALS: BP 102/63
[2021-05-18] MEDS ORDERED: SUMAtriptan SUCCINATE 25 MG TABLET PO PRN (17:00)
[2021-05-18] MEDS: QUEtiapine FUMARATE 200 MG TABLET PO SCH (20:23)
[2021-05-19 00:11] VITALS: BP 118/80
[2021-05-19 08:25] LABS: BASOPHILS % (AUTO) 0.4 % (0.0-2.0); EOSINOPHILS % (AUTO) 0.1 % (1.0-6.0); HEMATOCRIT 30.5 % (36-46); HEMOGLOBIN 10.1 g/dL (12.0-16.0); LYMPHOCYTES # (AUTO) 1.4 K/uL (1.0-4.8); LYMPHOCYTES % (AUTO) 30.5 % (22.0-44.0); MEAN CORPUSCULAR HEMOGLOBIN 24.8 pg (26.0-34.0); MEAN CORPUSCULAR HGB CONC 33.1 G/dL (31.0-37.0); MEAN CORPUSCULAR VOLUME 75 fL (80-100); MONOCYTES # (AUTO) 0.6 K/uL (0.1-1.0); MONOCYTES % (AUTO) 12.6 % (2.0-9.0); NEUTROPHILS # (AUTO) 2.5 K/uL (1.8-7.7); NEUTROPHILS % (AUTO) 56.4 % (40.0-70.0); PLATELET COUNT (AUTO) 276 K/uL (150-450); RED BLOOD CELL COUNT(AUTO) 4.06 MIL/uL (4.00-5.20)
[2021-05-19 08:39] LABS: HEMOGLOBIN A1C 6.1 % (3.8-5.6)
[2021-05-19 08:42] LABS: ALANINE AMINOTRANSFERASE 17 U/L (12-78); ALBUMIN 3.5 g/dL (3.4-5.0); ALKALINE PHOSPHATASE 109 U/L (46-116); ANION GAP 9 mmol/L (8-16); ASPARTATE AMINOTRANSFERASE 15 U/L (15-37); BILIRUBIN,TOTAL 0.3 mg/dL (0.1-1.0); CALCIUM, TOTAL 9.1 mg/dL (8.8-10.5); CARBON DIOXIDE 26 mmol/L (22-29); CHLORIDE 104 mmol/L (98-107); CHOL/HDL RATIO 3.2 (3.9-5.7); CHOLESTEROL 212 mg/dL (131-200); CREATININE 0.86 mg/dL (0.60-1.30); FREE T4 (FREE THYROXINE) 1.08 ng/dL (0.76-1.46); GLOMERULAR FILTR. RATE CALC > 60 mL/min (>60); GLUCOSE,RANDOM 107 mg/dL (70-110); HCG,QUANTITATIVE 4 mIU/mL (0-6); HDL CHOLESTEROL 67 mg/dL (40-60); LDL CHOL (CALC.) 132 mg/dL (0-130); POTASSIUM 4.2 mmol/L (3.5-5.1); SODIUM SERUM 139 mmol/L (136-145); THYROID STIMULATING HORMONE 1.32 uIU/mL (0.36-3.74); TOTAL PROTEIN, SERUM 7.1 g/dL (6.4-8.2); TRIGLYCERIDES 65 mg/dL (15-150); UREA NITROGEN, BLOOD 14 mg/dL (7-18)
[2021-05-19] MEDS: BuPROPion HCL XL 150 MG ER TABLET PO SCH (08:45)
[2021-05-19] MEDS ORDERED: CloNIDine HCL 0.1 MG TABLET PO PRN (10:15)
[2021-05-19] MEDS ORDERED: ALBUTEROL SULFATE HFA 90 MCG/PUFF 8 GM INHALER IH PRN (10:15)
[2021-05-19] MEDS ORDERED: BACITRACIN 28 GM OINTMENT TP PRN (10:15)
[2021-05-19] MEDS ORDERED: LOPERAMIDE HCL 2 MG CAPSULE PO PRN (10:15)
[2021-05-19] MEDS ORDERED: ACETAMINOPHEN 325 MG TABLET PO PRN (10:15)
[2021-05-19] MEDS ORDERED: MAG HYDROX/AL HYDROX/SIMETH ES 30 ML SUSPENSION UDCUP PO PRN (10:15)
[2021-05-19] MEDS ORDERED: PETROLATUM,WHITE 28 GM JELLY TP PRN (10:15)
[2021-05-19] MEDS ORDERED: BENZOCAINE/MENTHOL LOZENGE PO PRN (10:15)
[2021-05-19] MEDS ORDERED: ONDANSETRON HCL 4 MG TABLET PO PRN (10:15)
[2021-05-19] MEDS: DOCUSATE SODIUM 100 MG CAPSULE PO SCH (10:30)
[2021-05-19] MEDS: OMEPRAZOLE 20 MG CAPSULE PO SCH (10:30)
[2021-05-19] MEDS: IBUPROFEN 600 MG TABLET PO PRN (10:31)
[2021-05-19 14:18] VITALS: BP 101/56
[2021-05-19] MEDS: ASPIRIN/ACETAMINOPHEN/CAFFEINE 250-250-65 MG TABLET PO PRN (15:44)
[2021-05-19] MEDS: METHYL SALICYLATE/MENTHOL 85 GM CREAM TP PRN (15:46)
[2021-05-19 16:24] VITALS: BP 104/84
[2021-05-19] MEDS: QUEtiapine FUMARATE 200 MG TABLET PO SCH (20:03)
[2021-05-20 00:15] VITALS: BP 110/82
[2021-05-20] MEDS: ASPIRIN/ACETAMINOPHEN/CAFFEINE 250-250-65 MG TABLET PO PRN ×2 (06:16→18:45)
[2021-05-20 08:28] VITALS: BP 123/77
[2021-05-20] MEDS: BuPROPion HCL XL 150 MG ER TABLET PO SCH (08:37)
[2021-05-20] MEDS: DOCUSATE SODIUM 100 MG CAPSULE PO SCH (09:00)
[2021-05-20] MEDS: OMEPRAZOLE 20 MG CAPSULE PO SCH (09:00)
[2021-05-20 16:29] VITALS: BP 115/76
[2021-05-20 18:51] VITALS: BP 107/64
[2021-05-20] MEDS: QUEtiapine FUMARATE 200 MG TABLET PO SCH (20:21)
[2021-05-21 03:18] VITALS: BP 110/75
[2021-05-21 08:09] VITALS: BP 101/73
[2021-05-21] MEDS: BuPROPion HCL XL 150 MG ER TABLET PO SCH (08:32)
[2021-05-21] MEDS: DOCUSATE SODIUM 100 MG CAPSULE PO SCH (08:32)
[2021-05-21] MEDS: OMEPRAZOLE 20 MG CAPSULE PO SCH (08:32)
[2021-05-21] MEDS: ASPIRIN/ACETAMINOPHEN/CAFFEINE 250-250-65 MG TABLET PO PRN (12:38)
[2021-05-21 16:24] VITALS: BP 104/69
[2021-05-21] MEDS: QUEtiapine FUMARATE 200 MG TABLET PO SCH (20:49)
[2021-05-22 05:25] VITALS: BP 128/68
[2021-05-22 07:37] LABS: APPEARANCE,URINE HAZY (CLEAR); BILIRUBIN,URINE NEGATIVE (NEGATIVE); GLUCOSE, URINE (UA) NEGATIVE (NEGATIVE); KETONES,URINE NEGATIVE (NEGATIVE); LEUKOCYTE ESTERASE ,URINE NEGATIVE (NEGATIVE); NITRATE,URINE NEGATIVE (NEGATIVE); OCCULT BLOOD,URINE NEGATIVE (NEGATIVE); PROTEIN,URINE NEGATIVE (NEGATIVE); SPECIFIC GRAVITIY, URINE 1.025 (1.003-1.030); UROBILINOGEN,URINE <=1.0 mg/dL (<=1.0)
[2021-05-22 07:43] LABS: AMPHET/METH SCREEN,URINE NEGATIVE (NEGATIVE); BARBITURATE SCREEN, URINE NEGATIVE (NEGATIVE); BENZODIAZEPINES SCREEN,URINE NEGATIVE (NEGATIVE); CANNABINOID SCREEN,URINE POSITIVE (NEGATIVE); COCAINE SCREEN,URINE NEGATIVE (NEGATIVE); METHADONE SCREEN, URINE NEGATIVE (NEGATIVE); OPIATE SCREEN,URINE NEGATIVE (NEGATIVE)
[2021-05-22 07:46] LABS: PHENCYCLIDINE SCREEN,URINE NEGATIVE (NEGATIVE)
[2021-05-22] MEDS: DOCUSATE SODIUM 100 MG CAPSULE PO SCH (08:43)
[2021-05-22] MEDS: OMEPRAZOLE 20 MG CAPSULE PO SCH (08:44)
[2021-05-22] MEDS: BuPROPion HCL XL 150 MG ER TABLET PO SCH (08:45)
[2021-05-22] MEDS: ASPIRIN/ACETAMINOPHEN/CAFFEINE 250-250-65 MG TABLET PO PRN (10:33)
[2021-05-22] MEDS: METHYL SALICYLATE/MENTHOL 85 GM CREAM TP PRN (10:34)
[2021-05-22 11:50] VITALS: BP 99/64
[2021-05-22] MEDS: MAGNESIUM HYDROXIDE SUSPENSION 30 ML UDCUP PO PRN (15:33)
[2021-05-22 16:14] VITALS: BP 122/75
[2021-05-22] MEDS: QUEtiapine FUMARATE 200 MG TABLET PO SCH (20:35)
[2021-05-23] MEDS: IBUPROFEN 600 MG TABLET PO PRN (04:28)
[2021-05-23 05:31] VITALS: BP 106/68
[2021-05-23 08:10] VITALS: BP 112/71
[2021-05-23 08:11] LABS: GLUCOMETER DEV NAME(LOC) POC.BV
[2021-05-23] MEDS: BuPROPion HCL XL 150 MG ER TABLET PO SCH (08:24)
[2021-05-23] MEDS: OMEPRAZOLE 20 MG CAPSULE PO SCH (08:24)
[2021-05-23] MEDS: DOCUSATE SODIUM 100 MG CAPSULE PO SCH (08:24)
[2021-05-23] MEDS: ASPIRIN/ACETAMINOPHEN/CAFFEINE 250-250-65 MG TABLET PO PRN (14:53)
[2021-05-23 16:02] VITALS: BP 115/72
[2021-05-23] MEDS: QUEtiapine FUMARATE 200 MG TABLET PO SCH (20:47)
[2021-05-24 06:30] VITALS: BP 128/84
[2021-05-24] MEDS: ASPIRIN/ACETAMINOPHEN/CAFFEINE 250-250-65 MG TABLET PO PRN ×2 (06:31→18:23)
[2021-05-24 08:17] VITALS: BP 107/66
[2021-05-24] MEDS: OMEPRAZOLE 20 MG CAPSULE PO SCH (08:19)
[2021-05-24] MEDS: DOCUSATE SODIUM 100 MG CAPSULE PO SCH (08:19)
[2021-05-24] MEDS: BuPROPion HCL XL 150 MG ER TABLET PO SCH (08:19)
[2021-05-24 16:07] VITALS: BP 116/72
[2021-05-24] MEDS: QUEtiapine FUMARATE 200 MG TABLET PO SCH (20:07)
[2021-05-25 01:51] VITALS: BP 120/87
[2021-05-25 08:00] VITALS: BP 127/85
[2021-05-25] MEDS: BuPROPion HCL XL 150 MG ER TABLET PO SCH (08:00)
[2021-05-25] MEDS: DOCUSATE SODIUM 100 MG CAPSULE PO SCH (08:00)
[2021-05-25] MEDS: OMEPRAZOLE 20 MG CAPSULE PO SCH (08:00)
[2021-05-25] MEDS: ASPIRIN/ACETAMINOPHEN/CAFFEINE 250-250-65 MG TABLET PO PRN (11:38)
[2021-05-25 16:13] VITALS: BP 120/81
[2021-05-25] MEDS: QUEtiapine FUMARATE 200 MG TABLET PO SCH (20:06)
[2021-05-26] MEDS: ASPIRIN/ACETAMINOPHEN/CAFFEINE 250-250-65 MG TABLET PO PRN (04:16)
[2021-05-26 04:17] VITALS: BP 124/78
[2021-05-26] MEDS: METHYL SALICYLATE/MENTHOL 85 GM CREAM TP PRN (04:17)
[2021-05-26 08:05] VITALS: BP 118/64
[2021-05-26] MEDS: OMEPRAZOLE 20 MG CAPSULE PO SCH (08:19)
[2021-05-26] MEDS: BuPROPion HCL XL 150 MG ER TABLET PO SCH (08:19)
[2021-05-26] MEDS: DOCUSATE SODIUM 100 MG CAPSULE PO SCH (08:22)
[2021-05-26 16:08] VITALS: BP 119/65
[2021-05-26] MEDS: QUEtiapine FUMARATE 200 MG TABLET PO SCH (19:57)
[2021-05-27 04:45] VITALS: BP 110/72
[2021-05-27] MEDS: METHYL SALICYLATE/MENTHOL 85 GM CREAM TP PRN (05:00)
[2021-05-27] MEDS: ASPIRIN/ACETAMINOPHEN/CAFFEINE 250-250-65 MG TABLET PO PRN ×2 (05:00→16:55)
[2021-05-27] MEDS: DOCUSATE SODIUM 100 MG CAPSULE PO SCH (08:23)
[2021-05-27] MEDS: OMEPRAZOLE 20 MG CAPSULE PO SCH (08:24)
[2021-05-27] MEDS: BuPROPion HCL XL 150 MG ER TABLET PO SCH (08:24)
[2021-05-27 09:29] VITALS: BP 116/79
[2021-05-27 16:21] VITALS: BP 119/65
[2021-05-27] MEDS: QUEtiapine FUMARATE 200 MG TABLET PO SCH (20:08)
[2021-05-28] MEDS: BuPROPion HCL XL 150 MG ER TABLET PO SCH (08:11)
[2021-05-28] MEDS: DOCUSATE SODIUM 100 MG CAPSULE PO SCH (08:11)
[2021-05-28] MEDS: OMEPRAZOLE 20 MG CAPSULE PO SCH (08:11)
[2021-05-28] MEDS: ASPIRIN/ACETAMINOPHEN/CAFFEINE 250-250-65 MG TABLET PO PRN ×2 (08:21→16:32)
[2021-05-28 08:37] VITALS: BP 120/72
[2021-05-28] MEDS: METHYL SALICYLATE/MENTHOL 85 GM CREAM TP PRN (14:02)
[2021-05-28] MEDS: IBUPROFEN 600 MG TABLET PO PRN (14:02)
[2021-05-28 16:13] VITALS: BP 100/61
[2021-05-28] MEDS: QUEtiapine FUMARATE 200 MG TABLET PO SCH (20:01)
[2021-05-29 08:08] VITALS: BP 106/68
[2021-05-29] MEDS: BuPROPion HCL XL 150 MG ER TABLET PO SCH (08:39)
[2021-05-29] MEDS: OMEPRAZOLE 20 MG CAPSULE PO SCH (08:39)
[2021-05-29] MEDS: DOCUSATE SODIUM 100 MG CAPSULE PO SCH (08:40)
[2021-05-29] MEDS: ASPIRIN/ACETAMINOPHEN/CAFFEINE 250-250-65 MG TABLET PO PRN (11:27)
[2021-05-29] MEDS: METHYL SALICYLATE/MENTHOL 85 GM CREAM TP PRN (11:28)
[2021-05-29 16:10] VITALS: BP 111/72
[2021-05-29] MEDS: QUEtiapine FUMARATE 200 MG TABLET PO SCH (20:14)
[2021-05-30 02:29] VITALS: BP 128/89
[2021-05-30] MEDS: ASPIRIN/ACETAMINOPHEN/CAFFEINE 250-250-65 MG TABLET PO PRN ×2 (02:29→18:31)
[2021-05-30 08:17] VITALS: BP 97/60
[2021-05-30] MEDS: OMEPRAZOLE 20 MG CAPSULE PO SCH (08:18)
[2021-05-30] MEDS: DOCUSATE SODIUM 100 MG CAPSULE PO SCH (08:18)
[2021-05-30] MEDS: BuPROPion HCL XL 150 MG ER TABLET PO SCH (08:19)
[2021-05-30 16:03] VITALS: BP 113/76
[2021-05-30] MEDS: QUEtiapine FUMARATE 200 MG TABLET PO SCH (20:34)
[2021-05-31 05:42] VITALS: BP 104/71
[2021-05-31 07:26] LABS: GLUCOMETER DEV NAME(LOC) POC.BV
[2021-05-31] MEDS: OMEPRAZOLE 20 MG CAPSULE PO SCH (08:35)
[2021-05-31] MEDS: DOCUSATE SODIUM 100 MG CAPSULE PO SCH (08:35)
[2021-05-31] MEDS: BuPROPion HCL XL 150 MG ER TABLET PO SCH (08:35)
[2021-05-31] MEDS: ASPIRIN/ACETAMINOPHEN/CAFFEINE 250-250-65 MG TABLET PO PRN (15:05)
[2021-05-31 16:12] VITALS: BP 106/78
[2021-05-31] MEDS: QUEtiapine FUMARATE 200 MG TABLET PO SCH (20:40)
[2021-06-01 05:18] VITALS: BP 115/80
[2021-06-01 08:39] VITALS: BP 124/66
[2021-06-01] MEDS: OMEPRAZOLE 20 MG CAPSULE PO SCH (09:18)
[2021-06-01] MEDS: DOCUSATE SODIUM 100 MG CAPSULE PO SCH (09:18)
[2021-06-01] MEDS: BuPROPion HCL XL 150 MG ER TABLET PO SCH (09:18)
[2021-06-01] MEDS: ASPIRIN/ACETAMINOPHEN/CAFFEINE 250-250-65 MG TABLET PO PRN (11:29)
[2021-06-01 16:50] VITALS: BP 120/77
[2021-06-01] MEDS: QUEtiapine FUMARATE 200 MG TABLET PO SCH (20:14)
[2021-06-02 01:00] VITALS: BP 100/60
[2021-06-02] MEDS: METHYL SALICYLATE/MENTHOL 85 GM CREAM TP PRN (06:55)
[2021-06-02] MEDS: ASPIRIN/ACETAMINOPHEN/CAFFEINE 250-250-65 MG TABLET PO PRN ×2 (06:55→15:56)
[2021-06-02] MEDS: MAGNESIUM HYDROXIDE SUSPENSION 30 ML UDCUP PO PRN (07:34)
[2021-06-02] MEDS: BuPROPion HCL XL 150 MG ER TABLET PO SCH (08:08)
[2021-06-02] MEDS: OMEPRAZOLE 20 MG CAPSULE PO SCH (08:08)
[2021-06-02] MEDS: DOCUSATE SODIUM 100 MG CAPSULE PO SCH (08:08)
[2021-06-02 08:27] VITALS: BP_SYST 127
[2021-06-02 16:25] VITALS: BP 116/71
[2021-06-02] MEDS: QUEtiapine FUMARATE 200 MG TABLET PO SCH (20:13)
[2021-06-03 08:17] VITALS: BP 110/62
[2021-06-03] MEDS: DOCUSATE SODIUM 100 MG CAPSULE PO SCH (08:22)
[2021-06-03] MEDS: OMEPRAZOLE 20 MG CAPSULE PO SCH (08:22)
[2021-06-03] MEDS: BuPROPion HCL XL 150 MG ER TABLET PO SCH (08:22)
[2021-06-03] MEDS: ASPIRIN/ACETAMINOPHEN/CAFFEINE 250-250-65 MG TABLET PO PRN (11:38)
[2021-06-03 16:15] VITALS: BP 113/74
[2021-06-03] MEDS: QUEtiapine FUMARATE 200 MG TABLET PO SCH (20:37)
[2021-06-04 01:00] VITALS: BP 111/70
[2021-06-04 06:53] VITALS: BP 110/74
[2021-06-04] MEDS: ASPIRIN/ACETAMINOPHEN/CAFFEINE 250-250-65 MG TABLET PO PRN (06:54)
[2021-06-04 08:09] VITALS: BP 102/70
[2021-06-04] MEDS: OMEPRAZOLE 20 MG CAPSULE PO SCH (08:27)
[2021-06-04] MEDS: DOCUSATE SODIUM 100 MG CAPSULE PO SCH (08:27)
[2021-06-04] MEDS: BuPROPion HCL XL 150 MG ER TABLET PO SCH (08:27)
[2021-06-04] MEDS: IBUPROFEN 600 MG TABLET PO PRN (10:21)
[2021-06-04 16:22] VITALS: BP 124/74
[2021-06-04] MEDS: QUEtiapine FUMARATE 200 MG TABLET PO SCH (20:29)
[2021-06-05] MEDS: ASPIRIN/ACETAMINOPHEN/CAFFEINE 250-250-65 MG TABLET PO PRN (03:54)
[2021-06-05] MEDS: BuPROPion HCL XL 150 MG ER TABLET PO SCH (08:11)
[2021-06-05] MEDS: DOCUSATE SODIUM 100 MG CAPSULE PO SCH (08:11)
[2021-06-05] MEDS: OMEPRAZOLE 20 MG CAPSULE PO SCH (08:11)
[2021-06-05 08:37] VITALS: BP 97/76
[2021-06-05 16:17] VITALS: BP 117/73
[2021-06-05 16:19] VITALS: BP 117/73
[2021-06-05] MEDS: MAGNESIUM HYDROXIDE SUSPENSION 30 ML UDCUP PO PRN (16:19)
[2021-06-05] MEDS: IBUPROFEN 600 MG TABLET PO PRN (16:19)
[2021-06-05] MEDS: QUEtiapine FUMARATE 200 MG TABLET PO SCH (20:37)
[2021-06-06 00:54] VITALS: BP 111/82
[2021-06-06] MEDS: ASPIRIN/ACETAMINOPHEN/CAFFEINE 250-250-65 MG TABLET PO PRN ×2 (01:02→21:07)
[2021-06-06] MEDS: DOCUSATE SODIUM 100 MG CAPSULE PO SCH (07:53)
[2021-06-06] MEDS: OMEPRAZOLE 20 MG CAPSULE PO SCH (07:53)
[2021-06-06] MEDS: BuPROPion HCL XL 150 MG ER TABLET PO SCH (07:54)
[2021-06-06 09:24] VITALS: BP 101/61
[2021-06-06 09:51] LABS: GLUCOMETER DEV NAME(LOC) POC.BV
[2021-06-06 16:37] VITALS: BP 117/73
[2021-06-06] MEDS: QUEtiapine FUMARATE 200 MG TABLET PO SCH (20:27)
[2021-06-06 21:07] VITALS: BP 112/78
[2021-06-07] MEDS: OMEPRAZOLE 20 MG CAPSULE PO SCH (08:09)
[2021-06-07] MEDS: DOCUSATE SODIUM 100 MG CAPSULE PO SCH (08:09)
[2021-06-07] MEDS: BuPROPion HCL XL 150 MG ER TABLET PO SCH (08:10)
[2021-06-07 09:22] VITALS: BP 131/78
[2021-06-07] MEDS: ASPIRIN/ACETAMINOPHEN/CAFFEINE 250-250-65 MG TABLET PO PRN (14:24)
[2021-06-07 16:11] VITALS: BP 101/74
[2021-06-07] MEDS: QUEtiapine FUMARATE 200 MG TABLET PO SCH (20:41)
[2021-06-08 00:40] VITALS: BP 106/70
[2021-06-08 08:17] VITALS: BP 109/73
[2021-06-08] MEDS: OMEPRAZOLE 20 MG CAPSULE PO SCH (08:30)
[2021-06-08] MEDS: DOCUSATE SODIUM 100 MG CAPSULE PO SCH (08:30)
[2021-06-08] MEDS: BuPROPion HCL XL 150 MG ER TABLET PO SCH (08:30)
[2021-06-08] MEDS: ASPIRIN/ACETAMINOPHEN/CAFFEINE 250-250-65 MG TABLET PO PRN (09:37)
[2021-06-08] MEDS: IBUPROFEN 600 MG TABLET PO PRN (16:00)
[2021-06-08 16:01] VITALS: BP 136/60
[2021-06-08] MEDS: QUEtiapine FUMARATE 200 MG TABLET PO SCH (20:26)
[2021-06-08] MEDS ORDERED: BUPR-49 PO (21:22)
[2021-06-08] MEDS ORDERED: QUET200T30 PO (21:22)
[2021-06-09 00:35] VITALS: BP 132/64
[2021-06-09] MEDS: METHYL SALICYLATE/MENTHOL 85 GM CREAM TP PRN (01:34)
[2021-06-09] MEDS: ASPIRIN/ACETAMINOPHEN/CAFFEINE 250-250-65 MG TABLET PO PRN (01:34)
[2021-06-09 01:38] VITALS: BP 98/72
[2021-06-09] MEDS: DOCUSATE SODIUM 100 MG CAPSULE PO SCH (08:04)
[2021-06-09] MEDS: OMEPRAZOLE 20 MG CAPSULE PO SCH (08:04)
[2021-06-09 08:05] VITALS: BP 100/64
[2021-06-09] MEDS: BuPROPion HCL XL 150 MG ER TABLET PO SCH (08:05)
[2021-06-09] MEDS: IBUPROFEN 600 MG TABLET PO PRN (08:05)
== END 2021-06-09 10:00 | disposition home or self-care (01) | DRG 885 ==
LOC: B2X 10:22
PROVIDERS: ADMIT Psychiatry & Neurology Psychiatry; ATTEND Psychiatry & Neurology Psychiatry
DX: F25.9 Schizoaffective disorder, unspecified (principal); F12.90 Cannabis use, unspecified, uncomplicated; D64.9 Anemia, unspecified; G43.909 Migraine, unspecified, not intractable, without status migrainosus; G47.00 Insomnia, unspecified; K59.00 Constipation, unspecified; F41.9 Anxiety disorder, unspecified; Z20.822 Contact with and (suspected) exposure to COVID-19; M54.9 Dorsalgia, unspecified; F31.9 Bipolar disorder, unspecified; Z71.51 Drug abuse counseling and surveillance of drug abuser; Z88.0 Allergy status to penicillin; Z28.21 Immunization not carried out because of patient refusal
CPT/HCPCS: 80053; 80061; 80307; 81003; 83036; 84436; 84439; 84443; 84702; 85025; G0480

== ENCOUNTER 2021-07-04 20:47 | Inpatient (IN) | payer MEDICARE, MEDICAID ==
[~2021-07-04] VITALS: Ht 162.6 cm; Wt 84.4 kg
[2021-07-04] MEDS ORDERED: LORazepam 1 MG TABLET PO PRN (21:45)
[2021-07-05 00:16] LABS: GLUCOMETER DEV NAME(LOC) POC.BV
[2021-07-05] MEDS: LORazepam 2 MG TABLET PO PRN ×2 (00:57→20:07)
[2021-07-05] MEDS: HALOPERIDOL 5 MG TABLET PO PRN ×2 (00:58→20:07)
[2021-07-05 00:59] VITALS: BP 118/77
[2021-07-05] MEDS ORDERED: ONDANSETRON HCL 4 MG TABLET PO PRN (06:00)
[2021-07-05] MEDS ORDERED: OMEPRAZOLE 20 MG CAPSULE PO PRN (06:00)
[2021-07-05] MEDS ORDERED: ALBUTEROL SULFATE HFA 90 MCG/PUFF 8 GM INHALER IH PRN (06:00)
[2021-07-05] MEDS ORDERED: CloNIDine HCL 0.1 MG TABLET PO PRN (06:00)
[2021-07-05] MEDS ORDERED: ACETAMINOPHEN 325 MG TABLET PO PRN (06:00)
[2021-07-05] MEDS ORDERED: BACITRACIN 28 GM OINTMENT TP PRN (06:00)
[2021-07-05] MEDS ORDERED: BENZOCAINE/MENTHOL LOZENGE PO PRN (06:00)
[2021-07-05] MEDS ORDERED: PETROLATUM,WHITE 28 GM JELLY TP PRN (06:00)
[2021-07-05] MEDS ORDERED: MAGNESIUM HYDROXIDE SUSPENSION 30 ML UDCUP PO PRN (06:00)
[2021-07-05] MEDS ORDERED: LOPERAMIDE HCL 2 MG CAPSULE PO PRN (06:00)
[2021-07-05] MEDS ORDERED: DOCUSATE SODIUM 100 MG CAPSULE PO PRN (06:00)
[2021-07-05 07:00] LABS: BASOPHILS % (AUTO) 0.4 % (0.0-2.0); EOSINOPHILS % (AUTO) 0 % (1.0-6.0); HEMATOCRIT 28.1 % (36-46); LYMPHOCYTES # (AUTO) 1.5 K/uL (1.0-4.8); LYMPHOCYTES % (AUTO) 29.5 % (22.0-44.0); MEAN CORPUSCULAR HEMOGLOBIN 23.8 pg (26.0-34.0); MEAN CORPUSCULAR HGB CONC 32.1 G/dL (31.0-37.0); MEAN CORPUSCULAR VOLUME 74 fL (80-100); MONOCYTES # (AUTO) 0.6 K/uL (0.1-1.0); MONOCYTES % (AUTO) 12.5 % (2.0-9.0); NEUTROPHILS # (AUTO) 2.9 K/uL (1.8-7.7); NEUTROPHILS % (AUTO) 57.6 % (40.0-70.0); PLATELET COUNT (AUTO) 207 K/uL (150-450); RED BLOOD CELL COUNT(AUTO) 3.79 MIL/uL (4.00-5.20); RED CELL DISTRIBUTION WIDTH 19.1 % (11.5-14.5)
[2021-07-05 07:23] LABS: ALANINE AMINOTRANSFERASE 15 U/L (12-78); ALBUMIN 3.2 g/dL (3.4-5.0); ALKALINE PHOSPHATASE 110 U/L (46-116); ANION GAP 9 mmol/L (8-16); ASPARTATE AMINOTRANSFERASE 13 U/L (15-37); BILIRUBIN,TOTAL 0.3 mg/dL (0.1-1.0); CALCIUM, TOTAL 8.9 mg/dL (8.8-10.5); CARBON DIOXIDE 25 mmol/L (22-29); CHLORIDE 107 mmol/L (98-107); CHOL/HDL RATIO 3.4 (3.9-5.7); CHOLESTEROL 176 mg/dL (131-200); CREATININE 0.87 mg/dL (0.60-1.30); GLOMERULAR FILTR. RATE CALC > 60 mL/min (>60); GLUCOSE,RANDOM 96 mg/dL (70-110); HDL CHOLESTEROL 52 mg/dL (40-60); LDL CHOL (CALC.) 112 mg/dL (0-130); POTASSIUM 3.5 mmol/L (3.5-5.1); SODIUM SERUM 141 mmol/L (136-145); TOTAL PROTEIN, SERUM 6.2 g/dL (6.4-8.2); TRIGLYCERIDES 59 mg/dL (15-150); UREA NITROGEN, BLOOD 21 mg/dL (7-18)
[2021-07-05 07:31] LABS: HEMOGLOBIN A1C 5.9 % (3.8-5.6)
[2021-07-05 08:08] VITALS: BP 112/65
[2021-07-05 16:10] VITALS: BP 104/62
[2021-07-06 00:19] VITALS: BP 118/77
[2021-07-06 09:04] VITALS: BP 120/80
[2021-07-06 09:13] VITALS: BP 120/80
[2021-07-06] MEDS: IBUPROFEN 600 MG TABLET PO PRN (12:42)
[2021-07-06 16:03] VITALS: BP 118/74
[2021-07-06] MEDS: MAG HYDROX/AL HYDROX/SIMETH ES 30 ML SUSPENSION UDCUP PO PRN (18:22)
[2021-07-06] MEDS: QUEtiapine FUMARATE 200 MG TABLET PO SCH (20:00)
[2021-07-07 08:12] VITALS: BP 114/79
[2021-07-07] MEDS: BuPROPion HCL XL 150 MG ER TABLET PO SCH (08:25)
[2021-07-07] MEDS: IBUPROFEN 600 MG TABLET PO PRN (10:56)
[2021-07-07 16:06] VITALS: BP 103/65
[2021-07-07] MEDS: QUEtiapine FUMARATE 200 MG TABLET PO SCH (20:33)
[2021-07-08 00:38] VITALS: BP 107/69
[2021-07-08 08:23] VITALS: BP 101/75
[2021-07-08] MEDS: BuPROPion HCL XL 150 MG ER TABLET PO SCH (08:37)
[2021-07-08 16:11] VITALS: BP 114/72
[2021-07-08] MEDS: QUEtiapine FUMARATE 200 MG TABLET PO SCH (20:10)
[2021-07-09 05:00] VITALS: BP 109/70
[2021-07-09] MEDS: IBUPROFEN 600 MG TABLET PO PRN ×2 (05:00→21:28)
[2021-07-09 08:20] VITALS: BP 110/66
[2021-07-09] MEDS: BuPROPion HCL XL 150 MG ER TABLET PO SCH (08:38)
[2021-07-09] MEDS: MAG HYDROX/AL HYDROX/SIMETH ES 30 ML SUSPENSION UDCUP PO PRN (09:28)
[2021-07-09 16:09] VITALS: BP 114/75
[2021-07-09] MEDS: QUEtiapine FUMARATE 200 MG TABLET PO SCH (20:42)
[2021-07-09 21:28] VITALS: BP 111/73
[2021-07-10 07:05] VITALS: BP 108/62
[2021-07-10] MEDS: BuPROPion HCL XL 150 MG ER TABLET PO SCH (09:06)
[2021-07-10 09:08] VITALS: BP 102/74
[2021-07-10] MEDS: MAG HYDROX/AL HYDROX/SIMETH ES 30 ML SUSPENSION UDCUP PO PRN (11:02)
== END 2021-07-10 11:51 | disposition home or self-care (01) | DRG 885 ==
LOC: B2X 21:38
PROVIDERS: ADMIT Psychiatry & Neurology Psychiatry; ATTEND Psychiatry & Neurology Psychiatry
DX: F25.9 Schizoaffective disorder, unspecified (principal); F31.9 Bipolar disorder, unspecified; F41.9 Anxiety disorder, unspecified; G43.909 Migraine, unspecified, not intractable, without status migrainosus; G47.00 Insomnia, unspecified; K59.00 Constipation, unspecified; Z20.822 Contact with and (suspected) exposure to COVID-19; F12.90 Cannabis use, unspecified, uncomplicated; E61.1 Iron deficiency; D64.9 Anemia, unspecified; M54.50 Low back pain, unspecified; M54.9 Dorsalgia, unspecified
CPT/HCPCS: 80053; 80061; 83036; 84439; 84443; 85025; 87081

== ENCOUNTER 2021-08-10 08:59 | Inpatient (IN) | payer MEDICARE, MEDICAID ==
[~2021-08-10] VITALS: Ht 162.6 cm; Wt 83.9 kg
[2021-08-10] MEDS ORDERED: ZOLPIDEM TARTRATE 10 MG TABLET PO PRN (10:30)
[2021-08-10] MEDS ORDERED: HALOPERIDOL 5 MG TABLET PO PRN (10:30)
[2021-08-10] MEDS ORDERED: LORazepam 2 MG TABLET PO PRN (10:30)
[2021-08-10 12:53] VITALS: BP 113/71
[2021-08-10 16:30] VITALS: BP 97/64
[2021-08-10] MEDS: QUEtiapine FUMARATE 200 MG TABLET PO SCH (20:04)
[2021-08-11 01:49] VITALS: BP 102/66
[2021-08-11 07:08] LABS: BASOPHILS % (AUTO) 0.6 % (0.0-2.0); EOSINOPHILS % (AUTO) 0.1 % (1.0-6.0); HEMATOCRIT 28.8 % (36-46); HEMOGLOBIN 9.2 g/dL (12.0-16.0); LYMPHOCYTES # (AUTO) 1.2 K/uL (1.0-4.8); LYMPHOCYTES % (AUTO) 29.9 % (22.0-44.0); MEAN CORPUSCULAR HEMOGLOBIN 23.6 pg (26.0-34.0); MEAN CORPUSCULAR VOLUME 74 fL (80-100); MONOCYTES # (AUTO) 0.4 K/uL (0.1-1.0); MONOCYTES % (AUTO) 11.6 % (2.0-9.0); NEUTROPHILS # (AUTO) 2.2 K/uL (1.8-7.7); NEUTROPHILS % (AUTO) 57.8 % (40.0-70.0); PLATELET COUNT (AUTO) 264 K/uL (150-450); RED BLOOD CELL COUNT(AUTO) 3.91 MIL/uL (4.00-5.20); RED CELL DISTRIBUTION WIDTH 19.9 % (11.5-14.5)
[2021-08-11 07:23] LABS: HEMOGLOBIN A1C 5.7 % (3.8-5.6)
[2021-08-11 07:29] LABS: ALANINE AMINOTRANSFERASE 18 U/L (12-78); ALBUMIN 3.1 g/dL (3.4-5.0); ALKALINE PHOSPHATASE 98 U/L (46-116); ANION GAP 8 mmol/L (8-16); ASPARTATE AMINOTRANSFERASE 13 U/L (15-37); BILIRUBIN,TOTAL 0.2 mg/dL (0.1-1.0); CALCIUM, TOTAL 8.8 mg/dL (8.8-10.5); CARBON DIOXIDE 25 mmol/L (22-29); CHLORIDE 108 mmol/L (98-107); CHOL/HDL RATIO 3.2 (3.9-5.7); CHOLESTEROL 174 mg/dL (131-200); CREATININE 0.86 mg/dL (0.60-1.30); FREE T4 (FREE THYROXINE) 0.89 ng/dL (0.76-1.46); GLOMERULAR FILTR. RATE CALC > 60 mL/min (>60); GLUCOSE,RANDOM 91 mg/dL (70-110); HCG,QUANTITATIVE 5 mIU/mL (0-6); HDL CHOLESTEROL 55 mg/dL (40-60); LDL CHOL (CALC.) 104 mg/dL (0-130); POTASSIUM 3.8 mmol/L (3.5-5.1); SODIUM SERUM 141 mmol/L (136-145); THYROID STIMULATING HORMONE 1.02 uIU/mL (0.36-3.74); TOTAL PROTEIN, SERUM 6.1 g/dL (6.4-8.2); TRIGLYCERIDES 77 mg/dL (15-150); UREA NITROGEN, BLOOD 18 mg/dL (7-18)
[2021-08-11] MEDS: BuPROPion HCL 75 MG TABLET PO SCH (08:04)
[2021-08-11] MEDS ORDERED: OMEPRAZOLE 20 MG CAPSULE PO PRN (09:15)
[2021-08-11] MEDS ORDERED: LOPERAMIDE HCL 2 MG CAPSULE PO PRN ×2 (09:15→11:45)
[2021-08-11] MEDS ORDERED: MAGNESIUM HYDROXIDE SUSPENSION 30 ML UDCUP PO PRN (09:15)
[2021-08-11] MEDS ORDERED: BENZOCAINE/MENTHOL LOZENGE PO PRN (09:15)
[2021-08-11] MEDS ORDERED: ONDANSETRON HCL 4 MG TABLET PO PRN (09:15)
[2021-08-11] MEDS ORDERED: ALBUTEROL SULFATE HFA 90 MCG/PUFF 8 GM INHALER IH PRN (09:15)
[2021-08-11] MEDS ORDERED: DOCUSATE SODIUM 100 MG CAPSULE PO PRN (09:15)
[2021-08-11] MEDS ORDERED: BACITRACIN 28 GM OINTMENT TP PRN ×2 (09:15→11:45)
[2021-08-11] MEDS ORDERED: CloNIDine HCL 0.1 MG TABLET PO PRN ×2 (09:15→11:45)
[2021-08-11] MEDS ORDERED: PETROLATUM,WHITE 28 GM JELLY TP PRN ×2 (09:15→11:45)
[2021-08-11] MEDS ORDERED: IBUPROFEN 600 MG TABLET PO PRN (09:15)
[2021-08-11] MEDS ORDERED: ACETAMINOPHEN 325 MG TABLET PO PRN (09:15)
[2021-08-11] MEDS ORDERED: MAG HYDROX/AL HYDROX/SIMETH ES 30 ML SUSPENSION UDCUP PO PRN ×2 (09:15→11:45)
[2021-08-11] MEDS: SUMAtriptan SUCCINATE 25 MG TABLET PO PRN (13:47)
[2021-08-11 16:01] VITALS: BP 113/69
[2021-08-11] MEDS: QUEtiapine FUMARATE 200 MG TABLET PO SCH (20:12)
[2021-08-12 00:17] VITALS: BP 110/66
[2021-08-12] MEDS: BuPROPion HCL 75 MG TABLET PO SCH (08:11)
[2021-08-12] MEDS: DOCUSATE SODIUM 100 MG CAPSULE PO SCH (08:11)
[2021-08-12 16:19] VITALS: BP 135/88
[2021-08-12] MEDS: QUEtiapine FUMARATE 200 MG TABLET PO SCH (20:01)
[2021-08-13 08:46] VITALS: BP 124/69
[2021-08-13] MEDS: DOCUSATE SODIUM 100 MG CAPSULE PO SCH (08:59)
[2021-08-13] MEDS: BuPROPion HCL 75 MG TABLET PO SCH (09:00)
[2021-08-13] MEDS: SUMAtriptan SUCCINATE 25 MG TABLET PO PRN (11:03)
[2021-08-13 16:21] VITALS: BP 137/87
[2021-08-13] MEDS: QUEtiapine FUMARATE 200 MG TABLET PO SCH (20:12)
[2021-08-14] MEDS ORDERED: QUET200T30 PO (01:55)
[2021-08-14] MEDS ORDERED: BUPR-344 PO (01:55)
[2021-08-14 06:18] VITALS: BP 125/83
[2021-08-14 08:15] VITALS: BP 104/72
[2021-08-14] MEDS: DOCUSATE SODIUM 100 MG CAPSULE PO SCH (08:27)
[2021-08-14] MEDS: BuPROPion HCL 75 MG TABLET PO SCH (08:27)
== END 2021-08-14 10:45 | disposition home or self-care (01) | DRG 885 ==
LOC: B3A 12:09
PROVIDERS: ADMIT Psychiatry & Neurology Psychiatry; ATTEND Psychiatry & Neurology Psychiatry
DX: F25.9 Schizoaffective disorder, unspecified (principal); R45.851 Suicidal ideations; F31.9 Bipolar disorder, unspecified; F41.9 Anxiety disorder, unspecified; G43.909 Migraine, unspecified, not intractable, without status migrainosus; G47.00 Insomnia, unspecified; K59.00 Constipation, unspecified; Z59.00 Homelessness unspecified; Z20.822 Contact with and (suspected) exposure to COVID-19; D64.9 Anemia, unspecified; F12.10 Cannabis abuse, uncomplicated; E61.1 Iron deficiency; M54.50 Low back pain, unspecified; Z88.0 Allergy status to penicillin; Z71.51 Drug abuse counseling and surveillance of drug abuser
CPT/HCPCS: 80053; 80061; 83036; 84436; 84439; 84443; 84702; 85025; 86592; G0480

== ENCOUNTER 2021-11-06 15:41 | Inpatient (IN) | payer MEDICARE, MEDICAID ==
[~2021-11-06] VITALS: Ht 162.6 cm; Wt 79.5 kg
[~2021-11-06 15:41] MED LIST changes: +BUPR-344 PO; -BUPR-49 PO
[2021-11-07] MEDS ORDERED: ZOLPIDEM TARTRATE 10 MG TABLET PO PRN (16:30)
[2021-11-07] MEDS ORDERED: HALOPERIDOL 5 MG TABLET PO PRN (16:30)
[2021-11-07] MEDS ORDERED: LORazepam 2 MG TABLET PO PRN (16:30)
[2021-11-07 16:31] LABS: GLUCOMETER DEV NAME(LOC) POC.BV
[2021-11-07 17:49] VITALS: BP 132/68
[2021-11-07] MEDS ORDERED: FAMO20TA8 PO (18:35)
[2021-11-07] MEDS ORDERED: BUPR-317 PO (18:35)
[2021-11-07] MEDS: QUEtiapine FUMARATE 200 MG TABLET PO SCH (20:10)
[2021-11-08] MEDS ORDERED: ALBUTEROL SULFATE HFA 90 MCG/PUFF 8 GM INHALER IH PRN (07:45)
[2021-11-08] MEDS ORDERED: OMEPRAZOLE 20 MG CAPSULE PO PRN (07:45)
[2021-11-08] MEDS ORDERED: PETROLATUM,WHITE 28 GM JELLY TP PRN (07:45)
[2021-11-08] MEDS ORDERED: IBUPROFEN 600 MG TABLET PO PRN (07:45)
[2021-11-08] MEDS ORDERED: ONDANSETRON HCL 4 MG TABLET PO PRN (07:45)
[2021-11-08] MEDS ORDERED: MAG HYDROX/AL HYDROX/SIMETH ES 30 ML SUSPENSION UDCUP PO PRN (07:45)
[2021-11-08] MEDS ORDERED: LOPERAMIDE HCL 2 MG CAPSULE PO PRN (07:45)
[2021-11-08] MEDS ORDERED: BENZOCAINE/MENTHOL LOZENGE PO PRN (07:45)
[2021-11-08] MEDS ORDERED: ACETAMINOPHEN 325 MG TABLET PO PRN (07:45)
[2021-11-08] MEDS ORDERED: DOCUSATE SODIUM 100 MG CAPSULE PO PRN (07:45)
[2021-11-08] MEDS ORDERED: BACITRACIN 28 GM OINTMENT TP PRN (07:45)
[2021-11-08] MEDS ORDERED: CloNIDine HCL 0.1 MG TABLET PO PRN (07:45)
[2021-11-08 08:36] VITALS: BP 125/66
[2021-11-08] MEDS ORDERED: BuPROPion HCL XL 150 MG ER TABLET PO SCH (09:00)
[2021-11-08] MEDS ORDERED: BuPROPion HCL 75 MG TABLET PO SCH (17:00)
[2021-11-08] MEDS: QUEtiapine FUMARATE 200 MG TABLET PO SCH (20:06)
[2021-11-08 20:47] VITALS: BP 136/83
[2021-11-08] MEDS ORDERED: QUEtiapine FUMARATE 200 MG TABLET PO SCH (21:00)
[2021-11-09] MEDS: ASPIRIN/ACETAMINOPHEN/CAFFEINE 250-250-65 MG TABLET PO PRN ×2 (04:28→17:09)
[2021-11-09] MEDS: METHYL SALICYLATE/MENTHOL 85 GM CREAM TP PRN (04:29)
[2021-11-09] MEDS: BuPROPion HCL XL 150 MG ER TABLET PO SCH (08:23)
[2021-11-09 08:46] VITALS: BP 102/62
[2021-11-09 17:05] VITALS: BP 115/70
[2021-11-09 20:14] VITALS: BP 121/81
[2021-11-09] MEDS: QUEtiapine FUMARATE 200 MG TABLET PO SCH (20:29)
[2021-11-10 07:37] LABS: BASOPHILS % (AUTO) 0.6 % (0.0-2.0); EOSINOPHILS % (AUTO) 0.1 % (1.0-6.0); HEMATOCRIT 29.9 % (36-46); HEMOGLOBIN 9.7 g/dL (12.0-16.0); LYMPHOCYTES # (AUTO) 1.3 K/uL (1.0-4.8); LYMPHOCYTES % (AUTO) 31.4 % (22.0-44.0); MEAN CORPUSCULAR HEMOGLOBIN 24.8 pg (26.0-34.0); MEAN CORPUSCULAR HGB CONC 32.5 G/dL (31.0-37.0); MEAN CORPUSCULAR VOLUME 76 fL (80-100); MONOCYTES # (AUTO) 0.5 K/uL (0.1-1.0); MONOCYTES % (AUTO) 12.7 % (2.0-9.0); NEUTROPHILS # (AUTO) 2.3 K/uL (1.8-7.7); NEUTROPHILS % (AUTO) 55.2 % (40.0-70.0); PLATELET COUNT (AUTO) 216 K/uL (150-450); RED BLOOD CELL COUNT(AUTO) 3.92 MIL/uL (4.00-5.20); RED CELL DISTRIBUTION WIDTH 18.9 % (11.5-14.5)
[2021-11-10 07:54] LABS: HEMOGLOBIN A1C 5.7 % (3.8-5.6)
[2021-11-10 08:11] LABS: ALBUMIN 3.4 g/dL (3.4-5.0); BILIRUBIN,TOTAL 0.2 mg/dL (0.1-1.0); CALCIUM, TOTAL 9.2 mg/dL (8.8-10.5); CHOL/HDL RATIO 3.8 (3.9-5.7); CREATININE 0.99 mg/dL (0.60-1.30); FREE T4 (FREE THYROXINE) 0.77 ng/dL (0.76-1.46); POTASSIUM 4.3 mmol/L (3.5-5.1); THYROID STIMULATING HORMONE 1.4 uIU/mL (0.36-3.74); TOTAL PROTEIN, SERUM 6.5 g/dL (6.4-8.2)
[2021-11-10] MEDS: BuPROPion HCL XL 150 MG ER TABLET PO SCH (08:40)
[2021-11-10] MEDS: ASPIRIN/ACETAMINOPHEN/CAFFEINE 250-250-65 MG TABLET PO PRN ×2 (09:27→19:15)
[2021-11-10] MEDS: METHYL SALICYLATE/MENTHOL 85 GM CREAM TP PRN ×2 (09:28→19:15)
[2021-11-10 10:11] VITALS: BP 128/91
[2021-11-10 20:15] VITALS: BP 127/75
[2021-11-10] MEDS: QUEtiapine FUMARATE 200 MG TABLET PO SCH (20:41)
[2021-11-11] MEDS: BuPROPion HCL XL 150 MG ER TABLET PO SCH (08:27)
[2021-11-11 09:37] VITALS: BP 109/66
[2021-11-11] MEDS: ASPIRIN/ACETAMINOPHEN/CAFFEINE 250-250-65 MG TABLET PO PRN (12:10)
[2021-11-11] MEDS: QUEtiapine FUMARATE 200 MG TABLET PO SCH (20:06)
[2021-11-11 20:43] VITALS: BP 110/74
[2021-11-12 05:52] VITALS: BP 113/76
[2021-11-12] MEDS: ASPIRIN/ACETAMINOPHEN/CAFFEINE 250-250-65 MG TABLET PO PRN (05:57)
[2021-11-12] MEDS: METHYL SALICYLATE/MENTHOL 85 GM CREAM TP PRN (05:58)
[2021-11-12] MEDS: BuPROPion HCL XL 150 MG ER TABLET PO SCH (08:21)
[2021-11-12 08:29] VITALS: BP 108/78
[2021-11-12] MEDS: MAGNESIUM HYDROXIDE SUSPENSION 30 ML UDCUP PO PRN (20:13)
[2021-11-12 20:26] VITALS: BP 108/75
[2021-11-12] MEDS: QUEtiapine FUMARATE 200 MG TABLET PO SCH (20:30)
[2021-11-13 09:11] LABS: GLUCOMETER DEV NAME(LOC) POC.BV
[2021-11-13 09:25] VITALS: BP 114/63
[2021-11-13] MEDS: BuPROPion HCL XL 150 MG ER TABLET PO SCH (09:36)
[2021-11-13] MEDS: ASPIRIN/ACETAMINOPHEN/CAFFEINE 250-250-65 MG TABLET PO PRN ×2 (11:15→19:38)
[2021-11-13 19:38] VITALS: BP 115/82
[2021-11-13] MEDS: QUEtiapine FUMARATE 200 MG TABLET PO SCH (20:32)
[2021-11-13 20:38] VITALS: BP 106/70
[2021-11-13] MEDS: MAGNESIUM HYDROXIDE SUSPENSION 30 ML UDCUP PO PRN (21:04)
[2021-11-14 08:49] VITALS: BP 116/72
[2021-11-14] MEDS: BuPROPion HCL XL 150 MG ER TABLET PO SCH (08:52)
[2021-11-14 17:00] VITALS: BP 120/71
[2021-11-14] MEDS: ASPIRIN/ACETAMINOPHEN/CAFFEINE 250-250-65 MG TABLET PO PRN (17:02)
[2021-11-14 20:12] VITALS: BP 121/72
[2021-11-14] MEDS: QUEtiapine FUMARATE 200 MG TABLET PO SCH (20:37)
[2021-11-15] MEDS: BuPROPion HCL XL 150 MG ER TABLET PO SCH (09:02)
[2021-11-15 09:04] VITALS: BP 99/56
[2021-11-15] MEDS: ASPIRIN/ACETAMINOPHEN/CAFFEINE 250-250-65 MG TABLET PO PRN ×2 (09:09→17:25)
[2021-11-15] MEDS: METHYL SALICYLATE/MENTHOL 85 GM CREAM TP PRN (09:11)
[2021-11-15 17:25] VITALS: BP 125/75
[2021-11-15] MEDS: QUEtiapine FUMARATE 200 MG TABLET PO SCH (20:28)
[2021-11-15 20:40] VITALS: BP 102/64
[2021-11-16 08:19] VITALS: BP 118/70
[2021-11-16] MEDS: BuPROPion HCL XL 150 MG ER TABLET PO SCH (09:06)
[2021-11-16] MEDS: ASPIRIN/ACETAMINOPHEN/CAFFEINE 250-250-65 MG TABLET PO PRN (10:39)
[2021-11-16 20:01] VITALS: BP 114/83
[2021-11-16] MEDS: QUEtiapine FUMARATE 200 MG TABLET PO SCH (20:07)
[2021-11-17] MEDS: ASPIRIN/ACETAMINOPHEN/CAFFEINE 250-250-65 MG TABLET PO PRN ×2 (05:27→16:55)
[2021-11-17] MEDS: METHYL SALICYLATE/MENTHOL 85 GM CREAM TP PRN ×2 (05:27→16:55)
[2021-11-17] MEDS: BuPROPion HCL XL 150 MG ER TABLET PO SCH (08:16)
[2021-11-17 08:38] VITALS: BP 116/76
[2021-11-17] MEDS: QUEtiapine FUMARATE 200 MG TABLET PO SCH (20:06)
[2021-11-17 20:07] VITALS: BP 139/79
[2021-11-18] MEDS: BuPROPion HCL XL 150 MG ER TABLET PO SCH (08:34)
[2021-11-18] MEDS: ASPIRIN/ACETAMINOPHEN/CAFFEINE 250-250-65 MG TABLET PO PRN ×2 (10:26→20:20)
[2021-11-18] MEDS: METHYL SALICYLATE/MENTHOL 85 GM CREAM TP PRN (10:32)
[2021-11-18 16:33] VITALS: BP 117/72
[2021-11-18 20:16] VITALS: BP 130/94
[2021-11-18] MEDS: QUEtiapine FUMARATE 200 MG TABLET PO SCH (20:34)
[2021-11-19 08:42] VITALS: BP 97/60
[2021-11-19] MEDS: BuPROPion HCL XL 150 MG ER TABLET PO SCH (09:23)
[2021-11-19 09:30] LABS: GLUCOMETER DEV NAME(LOC) POC.BV
[2021-11-19] MEDS: QUEtiapine FUMARATE 200 MG TABLET PO SCH (20:04)
[2021-11-19] MEDS: ASPIRIN/ACETAMINOPHEN/CAFFEINE 250-250-65 MG TABLET PO PRN (20:42)
[2021-11-19 21:10] VITALS: BP 110/75
[2021-11-20] MEDS: BuPROPion HCL XL 150 MG ER TABLET PO SCH (08:17)
[2021-11-20 08:55] VITALS: BP 105/58
[2021-11-20] MEDS: ASPIRIN/ACETAMINOPHEN/CAFFEINE 250-250-65 MG TABLET PO PRN (11:23)
[2021-11-20] MEDS ORDERED: BUPR-49 PO (13:11)
[2021-11-20] MEDS ORDERED: QUET200T30 PO (13:11)
== END 2021-11-20 13:58 | disposition home or self-care (01) | DRG 885 ==
LOC: B2S 11-07 16:29 → B2X 11-07 19:47
PROVIDERS: ADMIT Psychiatry & Neurology Psychiatry; ATTEND Psychiatry & Neurology Psychiatry
DX: F25.9 Schizoaffective disorder, unspecified (principal); F31.9 Bipolar disorder, unspecified; F41.9 Anxiety disorder, unspecified; G43.909 Migraine, unspecified, not intractable, without status migrainosus; G47.00 Insomnia, unspecified; Z20.822 Contact with and (suspected) exposure to COVID-19; F12.90 Cannabis use, unspecified, uncomplicated; K59.00 Constipation, unspecified; D50.9 Iron deficiency anemia, unspecified; Z79.899 Other long term (current) drug therapy; Z88.0 Allergy status to penicillin
CPT/HCPCS: 80053; 80061; 83036; 84439; 84443; 85025

== ENCOUNTER 2022-02-14 16:43 | Inpatient (IN) | payer MEDICARE, MEDICAID ==
[~2022-02-14] VITALS: Ht 162.6 cm; Wt 83.9 kg
[~2022-02-14 16:43] MED LIST changes: +BUPR-317 PO; -BUPR-344 PO; +BUPR-49 PO
[2022-02-14 19:36] LABS: GLUCOMETER DEV NAME(LOC) POC.BV
[2022-02-14 19:51] VITALS: BP 121/63
[2022-02-14] MEDS ORDERED: HALOPERIDOL 5 MG TABLET PO PRN (21:00)
[2022-02-14] MEDS ORDERED: LOPERAMIDE HCL 2 MG CAPSULE PO PRN (21:00)
[2022-02-14] MEDS ORDERED: ZOLPIDEM TARTRATE 10 MG TABLET PO PRN (21:00)
[2022-02-14] MEDS ORDERED: MAGNESIUM HYDROXIDE SUSPENSION 30 ML UDCUP PO PRN (21:00)
[2022-02-14] MEDS ORDERED: MAG HYDROX/AL HYDROX/SIMETH ES 30 ML SUSPENSION UDCUP PO PRN (21:00)
[2022-02-14] MEDS ORDERED: LORazepam 1 MG TABLET PO PRN (21:00)
[2022-02-14] MEDS ORDERED: ACETAMINOPHEN 325 MG TABLET PO PRN (21:00)
[2022-02-14] MEDS: QUEtiapine FUMARATE 200 MG TABLET PO SCH (21:51)
[2022-02-15 07:00] LABS: BASOPHILS % (AUTO) 0.5 % (0.0-2.0); EOSINOPHILS % (AUTO) 0 % (1.0-6.0); HEMATOCRIT 27.9 % (36-46); HEMOGLOBIN 9.2 g/dL (12.0-16.0); LYMPHOCYTES # (AUTO) 0.7 K/uL (1.0-4.8); LYMPHOCYTES % (AUTO) 13.6 % (22.0-44.0); MEAN CORPUSCULAR HEMOGLOBIN 25.9 pg (26.0-34.0); MEAN CORPUSCULAR VOLUME 79 fL (80-100); MONOCYTES % (AUTO) 18.7 % (2.0-9.0); NEUTROPHILS # (AUTO) 3.6 K/uL (1.8-7.7); NEUTROPHILS % (AUTO) 67.2 % (40.0-70.0); PLATELET COUNT (AUTO) 183 K/uL (150-450); RED BLOOD CELL COUNT(AUTO) 3.55 MIL/uL (4.00-5.20); RED CELL DISTRIBUTION WIDTH 17.4 % (11.5-14.5)
[2022-02-15 07:26] LABS: ALBUMIN 3.2 g/dL (3.4-5.0); BILIRUBIN,TOTAL 0.1 mg/dL (0.1-1.0); CALCIUM, TOTAL 8.6 mg/dL (8.8-10.5); CHOL/HDL RATIO 2.7 (3.9-5.7); CREATININE 0.95 mg/dL (0.60-1.30); FREE T4 (FREE THYROXINE) 0.9 ng/dL (0.76-1.46); THYROID STIMULATING HORMONE 0.64 uIU/mL (0.36-3.74); TOTAL PROTEIN, SERUM 6.3 g/dL (6.4-8.2)
[2022-02-15 07:45] LABS: HEMOGLOBIN A1C 5.5 % (3.8-5.6)
[2022-02-15] MEDS ORDERED: ONDANSETRON HCL 4 MG TABLET PO PRN (12:00)
[2022-02-15] MEDS ORDERED: ACETAMINOPHEN 325 MG TABLET PO PRN (12:00)
[2022-02-15] MEDS ORDERED: BENZOCAINE/MENTHOL LOZENGE PO PRN (12:00)
[2022-02-15] MEDS ORDERED: ALBUTEROL SULFATE HFA 90 MCG/PUFF 8 GM INHALER IH PRN (12:00)
[2022-02-15] MEDS ORDERED: PETROLATUM,WHITE 28 GM JELLY TP PRN (12:00)
[2022-02-15] MEDS ORDERED: LOPERAMIDE HCL 2 MG CAPSULE PO PRN (12:00)
[2022-02-15] MEDS ORDERED: DOCUSATE SODIUM 100 MG CAPSULE PO PRN (12:00)
[2022-02-15] MEDS ORDERED: CloNIDine HCL 0.1 MG TABLET PO PRN (12:00)
[2022-02-15] MEDS ORDERED: OMEPRAZOLE 20 MG CAPSULE PO PRN (12:00)
[2022-02-15] MEDS ORDERED: IBUPROFEN 600 MG TABLET PO PRN (12:00)
[2022-02-15] MEDS ORDERED: MAG HYDROX/AL HYDROX/SIMETH ES 30 ML SUSPENSION UDCUP PO PRN (12:00)
[2022-02-15] MEDS ORDERED: BACITRACIN 28 GM OINTMENT TP PRN (12:00)
[2022-02-15] MEDS ORDERED: MAGNESIUM HYDROXIDE SUSPENSION 30 ML UDCUP PO PRN (12:00)
[2022-02-15 14:07] VITALS: BP 94/60
[2022-02-15] MEDS ORDERED: ASPIRIN/ACETAMINOPHEN/CAFFEINE 250-250-65 MG TABLET PO PRN (20:00)
[2022-02-15] MEDS ORDERED: BuPROPion HCL XL 150 MG ER TABLET PO SCH (20:00)
[2022-02-15] MEDS: QUEtiapine FUMARATE 200 MG TABLET PO SCH (20:40)
[2022-02-15] MEDS ORDERED: BuPROPion HCL 75 MG TABLET PO SCH (21:00)
[2022-02-15] MEDS ORDERED: QUEtiapine FUMARATE 300 MG TABLET PO SCH (21:00)
[2022-02-16] MEDS ORDERED: BuPROPion HCL 75 MG TABLET PO SCH (09:00)
== END 2022-02-16 06:20 | disposition short-term general hospital (02) | DRG 885 ==
LOC: B2X 21:17 → B2S 02-15 22:35
PROVIDERS: ADMIT Psychiatry & Neurology Psychiatry; ATTEND Psychiatry & Neurology Psychiatry
DX: F25.9 Schizoaffective disorder, unspecified (principal); R45.851 Suicidal ideations; D50.9 Iron deficiency anemia, unspecified; Z20.822 Contact with and (suspected) exposure to COVID-19; F31.9 Bipolar disorder, unspecified; F12.90 Cannabis use, unspecified, uncomplicated; M54.50 Low back pain, unspecified; F41.9 Anxiety disorder, unspecified; G43.909 Migraine, unspecified, not intractable, without status migrainosus; G47.00 Insomnia, unspecified; K59.00 Constipation, unspecified; Z71.51 Drug abuse counseling and surveillance of drug abuser
CPT/HCPCS: 80053; 80061; 83036; 84439; 84443; 85025

== ENCOUNTER 2022-02-15 22:05 | Inpatient (IN) | payer MEDICARE, MEDICAID ==
[~2022-02-15] VITALS: Ht 165.1 cm; Wt 82.0 kg
[2022-02-15 22:53] LABS: COVID AG,FIA SOURCE NASOPHARYNGEAL
[2022-02-15 23:20] LABS: INFLUENZA TYPE B NEGATIVE FOR TYPE B (NEGATIVE)
[2022-02-15 23:28] LABS: INFLUENZA TYPE A POSITIVE FOR TYPE A (NEGATIVE)
[2022-02-16] MEDS ORDERED: IBUPROFEN 600 MG TABLET PO ONE (05:15)
[2022-02-16 06:27] VITALS: BP 109/51
[2022-02-16] MEDS ORDERED: BISACODYL 10 MG RECTAL RECTAL SUPPOSITORY PR PRN (06:45)
[2022-02-16] MEDS ORDERED: ACETAMINOPHEN 325 MG TABLET PO PRN (06:45)
[2022-02-16] MEDS ORDERED: ZOLPIDEM TARTRATE 5 MG TABLET PO PRN (06:45)
[2022-02-16] MEDS ORDERED: MAGNESIUM HYDROXIDE SUSPENSION 30 ML UDCUP PO PRN (06:45)
[2022-02-16] MEDS ORDERED: ONDANSETRON HCL 4 MG/2 ML VIAL IVP PRN (06:45)
[2022-02-16] MEDS ORDERED: MORPHINE SULFATE 2 MG/ML SYRINGE IVP PRN (06:45)
[2022-02-16 07:21] VITALS: BP 110/64
[2022-02-16 07:58] LABS: BASOPHILS % (AUTO) 0.1 % (0.0-2.0); EOSINOPHILS % (AUTO) 0 % (1.0-6.0); HEMATOCRIT 29.7 % (36-46); HEMOGLOBIN 9.8 g/dL (12.0-16.0); LYMPHOCYTES # (AUTO) 0.9 K/uL (1.0-4.8); LYMPHOCYTES % (AUTO) 10.7 % (22.0-44.0); MEAN CORPUSCULAR HEMOGLOBIN 25.4 pg (26.0-34.0); MEAN CORPUSCULAR VOLUME 77 fL (80-100); MONOCYTES % (AUTO) 11.6 % (2.0-9.0); NEUTROPHILS # (AUTO) 6.7 K/uL (1.8-7.7); NEUTROPHILS % (AUTO) 77.6 % (40.0-70.0); PLATELET COUNT (AUTO) 191 K/uL (150-450); RED BLOOD CELL COUNT(AUTO) 3.85 MIL/uL (4.00-5.20); RED CELL DISTRIBUTION WIDTH 17.2 % (11.5-14.5)
[2022-02-16] MEDS: HEPARIN SODIUM,PORCINE 5,000 UNITS/ML VIAL SQ SCH ×3 (08:00→23:13)
[2022-02-16 08:59] LABS: ANION GAP 8 mmol/L (8-16); CALCIUM, TOTAL 8.7 mg/dL (8.8-10.5); CARBON DIOXIDE 25 mmol/L (22-29); CHLORIDE 98 mmol/L (98-107); CREATININE 0.91 mg/dL (0.60-1.30); GLUCOSE,RANDOM 111 mg/dL (70-110); POTASSIUM 3.2 mmol/L (3.5-5.1); SODIUM SERUM 131 mmol/L (136-145); UREA NITROGEN, BLOOD 16 mg/dL (7-18)
[2022-02-16 09:03] LABS: GLOMERULAR FILTR. RATE CALC > 60 mL/min (>60)
[2022-02-16] MEDS: HYDROCODONE/ACETAMINOPHEN 5-325 MG TABLET PO PRN ×2 (11:39→15:56)
[2022-02-16] MEDS: PANTOPRAZOLE SODIUM 40 MG DR TABLET PO SCH (11:39)
[2022-02-16] MEDS: BuPROPion HCL XL 150 MG ER TABLET PO SCH (11:40)
[2022-02-16] MEDS: DOCUSATE SODIUM 100 MG CAPSULE PO SCH ×2 (11:40→21:00)
[2022-02-16] MEDS: OSELTAMIVIR PHOSPHATE 75 MG CAPSULE PO SCH ×3 (11:40→21:07)
[2022-02-16 15:13] VITALS: BP 99/56
[2022-02-16] MEDS ORDERED: ASPIRIN/ACETAMINOPHEN/CAFFEINE 250-250-65 MG TABLET PO ONE (19:30)
[2022-02-16 19:32] VITALS: BP 116/68
[2022-02-16] MEDS: METHYL SALICYLATE/MENTHOL 85 GM CREAM TP PRN (20:55)
[2022-02-16] MEDS ORDERED: POTASSIUM CHLORIDE 20 MEQ ER TABLET PO ONE (21:00)
[2022-02-16] MEDS: QUEtiapine FUMARATE 200 MG TABLET PO SCH (21:06)
[2022-02-17 05:17] VITALS: BP 110/61
[2022-02-17] MEDS: HEPARIN SODIUM,PORCINE 5,000 UNITS/ML VIAL SQ SCH ×3 (08:00→23:53)
[2022-02-17] MEDS: OSELTAMIVIR PHOSPHATE 75 MG CAPSULE PO SCH ×2 (09:00→20:12)
[2022-02-17] MEDS: PANTOPRAZOLE SODIUM 40 MG DR TABLET PO SCH (09:00)
[2022-02-17] MEDS: DOCUSATE SODIUM 100 MG CAPSULE PO SCH ×2 (09:00→20:14)
[2022-02-17] MEDS: BuPROPion HCL XL 150 MG ER TABLET PO SCH (09:44)
[2022-02-17 12:00] VITALS: BP 102/54
[2022-02-17] MEDS ORDERED: POTASSIUM CHLORIDE 20 MEQ ER TABLET PO ONE (12:15)
[2022-02-17 16:00] VITALS: BP 113/70
[2022-02-17 19:45] VITALS: BP 110/60
[2022-02-17] MEDS: QUEtiapine FUMARATE 200 MG TABLET PO SCH (20:12)
[2022-02-17] MEDS: ASPIRIN/ACETAMINOPHEN/CAFFEINE 250-250-65 MG TABLET PO PRN (21:10)
[2022-02-17] MEDS: METHYL SALICYLATE/MENTHOL 85 GM CREAM TP PRN (21:11)
[2022-02-18] MEDS: BuPROPion HCL XL 150 MG ER TABLET PO SCH (07:30)
[2022-02-18] MEDS: PANTOPRAZOLE SODIUM 40 MG DR TABLET PO SCH (07:31)
[2022-02-18] MEDS: HEPARIN SODIUM,PORCINE 5,000 UNITS/ML VIAL SQ SCH ×3 (08:00→23:53)
[2022-02-18] MEDS: DOCUSATE SODIUM 100 MG CAPSULE PO SCH ×2 (08:32→20:18)
[2022-02-18] MEDS: ASPIRIN/ACETAMINOPHEN/CAFFEINE 250-250-65 MG TABLET PO PRN (08:32)
[2022-02-18] MEDS: OSELTAMIVIR PHOSPHATE 75 MG CAPSULE PO SCH ×2 (09:00→20:18)
[2022-02-18] MEDS: GuaiFENesin/D-METHORPHAN [SUGAR-FREE] 200-20MG/10 ML SYRUP UDCUP PO PRN ×2 (12:01→18:34)
[2022-02-18 15:00] VITALS: BP 111/55
[2022-02-18 19:30] VITALS: BP 111/64
[2022-02-18] MEDS: QUEtiapine FUMARATE 200 MG TABLET PO SCH (20:13)
[2022-02-19 07:58] VITALS: BP 119/68
[2022-02-19] MEDS: HEPARIN SODIUM,PORCINE 5,000 UNITS/ML VIAL SQ SCH ×2 (08:00→16:00)
[2022-02-19] MEDS: PANTOPRAZOLE SODIUM 40 MG DR TABLET PO SCH ×2 (08:24→10:22)
[2022-02-19] MEDS: OSELTAMIVIR PHOSPHATE 75 MG CAPSULE PO SCH ×2 (08:24→20:32)
[2022-02-19] MEDS: DOCUSATE SODIUM 100 MG CAPSULE PO SCH ×2 (08:24→20:31)
[2022-02-19] MEDS: BuPROPion HCL XL 150 MG ER TABLET PO SCH ×2 (08:24→10:22)
[2022-02-19] MEDS: ASPIRIN/ACETAMINOPHEN/CAFFEINE 250-250-65 MG TABLET PO PRN (18:41)
[2022-02-19] MEDS: GuaiFENesin/D-METHORPHAN [SUGAR-FREE] 200-20MG/10 ML SYRUP UDCUP PO PRN (18:41)
[2022-02-19 20:25] VITALS: BP 106/50
[2022-02-19] MEDS: QUEtiapine FUMARATE 200 MG TABLET PO SCH (20:27)
[2022-02-20] MEDS: HYDROCODONE/ACETAMINOPHEN 5-325 MG TABLET PO PRN (00:34)
[2022-02-20] MEDS: ASPIRIN/ACETAMINOPHEN/CAFFEINE 250-250-65 MG TABLET PO PRN ×2 (04:23→15:31)
[2022-02-20 04:38] VITALS: BP 97/55
[2022-02-20] MEDS: HEPARIN SODIUM,PORCINE 5,000 UNITS/ML VIAL SQ SCH ×3 (08:00→15:28)
[2022-02-20 08:12] VITALS: BP 102/66
[2022-02-20] MEDS: PANTOPRAZOLE SODIUM 40 MG DR TABLET PO SCH (08:27)
[2022-02-20] MEDS: BuPROPion HCL XL 150 MG ER TABLET PO SCH (08:27)
[2022-02-20] MEDS: OSELTAMIVIR PHOSPHATE 75 MG CAPSULE PO SCH ×2 (08:28→20:18)
[2022-02-20] MEDS: DOCUSATE SODIUM 100 MG CAPSULE PO SCH ×2 (08:28→20:18)
[2022-02-20] MEDS: GuaiFENesin/D-METHORPHAN [SUGAR-FREE] 200-20MG/10 ML SYRUP UDCUP PO PRN (14:41)
[2022-02-20 15:22] VITALS: BP 119/67
[2022-02-20 17:07] LABS: COVID AG,FIA SOURCE NASAL SWAB
[2022-02-20 20:03] VITALS: BP 112/58
[2022-02-20] MEDS: QUEtiapine FUMARATE 200 MG TABLET PO SCH (20:17)
[2022-02-21] MEDS: GuaiFENesin/D-METHORPHAN [SUGAR-FREE] 200-20MG/10 ML SYRUP UDCUP PO PRN (01:07)
[2022-02-21] MEDS: HEPARIN SODIUM,PORCINE 5,000 UNITS/ML VIAL SQ SCH ×3 (08:00→16:00)
[2022-02-21] MEDS: PANTOPRAZOLE SODIUM 40 MG DR TABLET PO SCH (08:19)
[2022-02-21] MEDS: BuPROPion HCL XL 150 MG ER TABLET PO SCH (08:19)
[2022-02-21] MEDS: DOCUSATE SODIUM 100 MG CAPSULE PO SCH ×2 (08:22→20:01)
[2022-02-21] MEDS: HYDROCODONE/ACETAMINOPHEN 5-325 MG TABLET PO PRN (12:05)
[2022-02-21] MEDS: SUMAtriptan SUCCINATE 25 MG TABLET PO PRN (14:20)
[2022-02-21 19:56] VITALS: BP 117/67
[2022-02-21] MEDS: QUEtiapine FUMARATE 200 MG TABLET PO SCH (20:01)
[2022-02-22] MEDS: GuaiFENesin/D-METHORPHAN [SUGAR-FREE] 200-20MG/10 ML SYRUP UDCUP PO PRN ×2 (01:35→02:33)
[2022-02-22] MEDS: ASPIRIN/ACETAMINOPHEN/CAFFEINE 250-250-65 MG TABLET PO PRN (02:19)
[2022-02-22] MEDS: METHYL SALICYLATE/MENTHOL 85 GM CREAM TP PRN ×2 (02:19→09:54)
[2022-02-22] MEDS: HEPARIN SODIUM,PORCINE 5,000 UNITS/ML VIAL SQ SCH ×3 (08:00→16:00)
[2022-02-22] MEDS: BuPROPion HCL XL 150 MG ER TABLET PO SCH (08:22)
[2022-02-22] MEDS: PANTOPRAZOLE SODIUM 40 MG DR TABLET PO SCH (08:22)
[2022-02-22] MEDS: DOCUSATE SODIUM 100 MG CAPSULE PO SCH ×2 (09:00→21:00)
[2022-02-22] MEDS: SUMAtriptan SUCCINATE 25 MG TABLET PO PRN (09:54)
[2022-02-22] MEDS: QUEtiapine FUMARATE 200 MG TABLET PO SCH (21:49)
[2022-02-23 05:50] VITALS: BP 103/57
[2022-02-23] MEDS: GuaiFENesin/D-METHORPHAN [SUGAR-FREE] 200-20MG/10 ML SYRUP UDCUP PO PRN ×2 (06:12→18:55)
[2022-02-23 08:00] VITALS: BP 94/66
[2022-02-23] MEDS: HEPARIN SODIUM,PORCINE 5,000 UNITS/ML VIAL SQ SCH ×3 (08:00→16:00)
[2022-02-23] MEDS: DOCUSATE SODIUM 100 MG CAPSULE PO SCH ×2 (08:13→20:26)
[2022-02-23] MEDS: PANTOPRAZOLE SODIUM 40 MG DR TABLET PO SCH (08:13)
[2022-02-23] MEDS: BuPROPion HCL XL 150 MG ER TABLET PO SCH (08:13)
[2022-02-23] MEDS: ASPIRIN/ACETAMINOPHEN/CAFFEINE 250-250-65 MG TABLET PO PRN (10:46)
[2022-02-23 15:39] VITALS: BP 104/65
[2022-02-23 15:42] LABS: COVID AG,FIA SOURCE NASAL SWAB
[2022-02-23] MEDS: HYDROCODONE/ACETAMINOPHEN 5-325 MG TABLET PO PRN (16:52)
[2022-02-23 18:57] LABS: CALCIUM, TOTAL 9.3 mg/dL (8.8-10.5); CREATININE 1.03 mg/dL (0.60-1.30); POTASSIUM 3.3 mmol/L (3.5-5.1)
[2022-02-23 19:50] VITALS: BP 108/60
[2022-02-23] MEDS ORDERED: PANT-31 PO (19:51)
[2022-02-23] MEDS: QUEtiapine FUMARATE 200 MG TABLET PO SCH (20:25)
== END 2022-02-23 22:47 | DRG 194 ==
LOC: EMS 22:05 → 6N 02-16 06:34
PROVIDERS: ADMIT Internal Medicine; ATTEND Internal Medicine
DX: J10.00 Influenza due to other identified influenza virus with unspecified type of pneumonia (principal); E87.1 Hypo-osmolality and hyponatremia; D64.9 Anemia, unspecified; E87.6 Hypokalemia; F43.10 Post-traumatic stress disorder, unspecified; F60.3 Borderline personality disorder; F25.0 Schizoaffective disorder, bipolar type; Z20.822 Contact with and (suspected) exposure to COVID-19; F41.9 Anxiety disorder, unspecified; Z79.899 Other long term (current) drug therapy; Z88.0 Allergy status to penicillin
CPT/HCPCS: 71045; 80048; 85025; 87804; 99285; J1644; 36415-L1; 36415-TC; U0003

== ENCOUNTER 2022-02-23 15:26 | Inpatient (IN) | payer MEDICARE, MEDICAID ==
[~2022-02-23] VITALS: Ht 162.6 cm; Wt 79.8 kg
[2022-02-23] MEDS ORDERED: PANT-31 PO (19:51)
[2022-02-23 22:40] VITALS: BP 112/75
[2022-02-23] MEDS ORDERED: INFLUENZA VIRUS VACCINE QVS 2022-23 (6MO+)/PF 60 MCG/0.5 ML SYRINGE IM. ONE (22:45)
[2022-02-24] MEDS ORDERED: ZOLPIDEM TARTRATE 10 MG TABLET PO PRN (01:15)
[2022-02-24] MEDS ORDERED: QUEtiapine FUMARATE 100 MG TABLET PO PRN (01:15)
[2022-02-24] MEDS ORDERED: LORazepam 2 MG TABLET PO PRN (01:15)
[2022-02-24] MEDS: BuPROPion HCL XL 150 MG ER TABLET PO SCH (13:32)
[2022-02-24] MEDS ORDERED: PETROLATUM,WHITE 28 GM JELLY TP PRN (14:30)
[2022-02-24] MEDS ORDERED: MAG HYDROX/AL HYDROX/SIMETH ES 30 ML SUSPENSION UDCUP PO PRN (14:30)
[2022-02-24] MEDS ORDERED: CloNIDine HCL 0.1 MG TABLET PO PRN (14:30)
[2022-02-24] MEDS ORDERED: BACITRACIN 28 GM OINTMENT TP PRN (14:30)
[2022-02-24] MEDS ORDERED: ALBUTEROL SULFATE HFA 90 MCG/PUFF 8 GM INHALER IH PRN (14:30)
[2022-02-24] MEDS ORDERED: DOCUSATE SODIUM 100 MG CAPSULE PO PRN (14:30)
[2022-02-24] MEDS ORDERED: ACETAMINOPHEN 325 MG TABLET PO PRN (14:30)
[2022-02-24] MEDS ORDERED: LOPERAMIDE HCL 2 MG CAPSULE PO PRN (14:30)
[2022-02-24] MEDS ORDERED: MAGNESIUM HYDROXIDE SUSPENSION 30 ML UDCUP PO PRN (14:30)
[2022-02-24] MEDS ORDERED: ONDANSETRON HCL 4 MG TABLET PO PRN (14:30)
[2022-02-24] MEDS ORDERED: GuaiFENesin [SUGAR-FREE] 200 MG/10 ML SOLUTION UDCUP PO PRN (14:45)
[2022-02-24] MEDS: METHYL SALICYLATE/MENTHOL 85 GM CREAM TP PRN (16:42)
[2022-02-24 16:45] VITALS: BP 124/65
[2022-02-24] MEDS: ASPIRIN/ACETAMINOPHEN/CAFFEINE 250-250-65 MG TABLET PO PRN (16:48)
[2022-02-24] MEDS: QUEtiapine FUMARATE 200 MG TABLET PO SCH (20:54)
[2022-02-24 21:07] VITALS: BP 120/65
[2022-02-25] MEDS: MULTIVITAMINS WITH MINERALS, THERAPEUTIC TABLET PO SCH (09:00)
[2022-02-25] MEDS: BuPROPion HCL XL 150 MG ER TABLET PO SCH (09:11)
[2022-02-25 09:16] VITALS: BP 120/78
[2022-02-25 09:17] VITALS: BP 120/78
[2022-02-25 10:51] VITALS: BP 128/89
[2022-02-25] MEDS: ASPIRIN/ACETAMINOPHEN/CAFFEINE 250-250-65 MG TABLET PO PRN (10:51)
[2022-02-25 16:18] VITALS: BP 130/74
[2022-02-25] MEDS: IBUPROFEN 600 MG TABLET PO PRN (16:18)
[2022-02-25 20:07] VITALS: BP 111/74
[2022-02-25] MEDS: QUEtiapine FUMARATE 200 MG TABLET PO SCH (21:01)
[2022-02-26] MEDS: ASPIRIN/ACETAMINOPHEN/CAFFEINE 250-250-65 MG TABLET PO PRN ×2 (03:32→13:46)
[2022-02-26 08:30] VITALS: BP 100/65
[2022-02-26] MEDS: BuPROPion HCL XL 150 MG ER TABLET PO SCH (08:30)
[2022-02-26] MEDS: MULTIVITAMINS WITH MINERALS, THERAPEUTIC TABLET PO SCH (09:00)
[2022-02-26 09:08] VITALS: BP 100/65
[2022-02-26 16:48] VITALS: BP 112/62
[2022-02-26] MEDS: IBUPROFEN 600 MG TABLET PO PRN (16:48)
[2022-02-26] MEDS: QUEtiapine FUMARATE 200 MG TABLET PO SCH (20:26)
[2022-02-26 20:53] VITALS: BP 147/103
[2022-02-27 06:44] LABS: BASOPHILS % (AUTO) 0.5 % (0.0-2.0); EOSINOPHILS % (AUTO) 0 % (1.0-6.0); HEMATOCRIT 27.8 % (36-46); LYMPHOCYTES # (AUTO) 1.4 K/uL (1.0-4.8); LYMPHOCYTES % (AUTO) 21.9 % (22.0-44.0); MEAN CORPUSCULAR HEMOGLOBIN 24.9 pg (26.0-34.0); MEAN CORPUSCULAR HGB CONC 32.5 G/dL (31.0-37.0); MEAN CORPUSCULAR VOLUME 77 fL (80-100); MONOCYTES # (AUTO) 0.6 K/uL (0.1-1.0); MONOCYTES % (AUTO) 9.5 % (2.0-9.0); NEUTROPHILS # (AUTO) 4.2 K/uL (1.8-7.7); NEUTROPHILS % (AUTO) 68.1 % (40.0-70.0); PLATELET COUNT (AUTO) 450 K/uL (150-450); RED BLOOD CELL COUNT(AUTO) 3.62 MIL/uL (4.00-5.20); RED CELL DISTRIBUTION WIDTH 17.8 % (11.5-14.5)
[2022-02-27 07:08] LABS: HEMOGLOBIN A1C 6.2 % (3.8-5.6)
[2022-02-27 07:15] LABS: ALANINE AMINOTRANSFERASE 15 U/L (12-78); ALBUMIN 2.7 g/dL (3.4-5.0); ALKALINE PHOSPHATASE 93 U/L (46-116); ANION GAP 5 mmol/L (8-16); ASPARTATE AMINOTRANSFERASE 9 U/L (15-37); BILIRUBIN,TOTAL 0.1 mg/dL (0.1-1.0); CALCIUM, TOTAL 9.1 mg/dL (8.8-10.5); CARBON DIOXIDE 28 mmol/L (22-29); CHLORIDE 106 mmol/L (98-107); CHOL/HDL RATIO 3.3 (3.9-5.7); CHOLESTEROL 137 mg/dL (131-200); FREE T4 (FREE THYROXINE) 0.92 ng/dL (0.76-1.46); GLUCOSE,RANDOM 110 mg/dL (70-110); HDL CHOLESTEROL 41 mg/dL (40-60); LDL CHOL (CALC.) 82 mg/dL (0-130); POTASSIUM 4.3 mmol/L (3.5-5.1); SODIUM SERUM 139 mmol/L (136-145); THYROID STIMULATING HORMONE 0.93 uIU/mL (0.36-3.74); TOTAL PROTEIN, SERUM 6.4 g/dL (6.4-8.2); TRIGLYCERIDES 70 mg/dL (15-150); UREA NITROGEN, BLOOD 13 mg/dL (7-18)
[2022-02-27 07:17] LABS: GLOMERULAR FILTR. RATE CALC > 60 mL/min (>60)
[2022-02-27] MEDS: BuPROPion HCL XL 150 MG ER TABLET PO SCH (08:31)
[2022-02-27] MEDS: MULTIVITAMINS WITH MINERALS, THERAPEUTIC TABLET PO SCH (08:38)
[2022-02-27 08:53] VITALS: BP 137/90
[2022-02-27] MEDS: OMEPRAZOLE 20 MG CAPSULE PO PRN (11:10)
[2022-02-27 15:58] VITALS: BP 123/70
[2022-02-27] MEDS: ASPIRIN/ACETAMINOPHEN/CAFFEINE 250-250-65 MG TABLET PO PRN (15:58)
[2022-02-27 20:03] VITALS: BP 126/70
[2022-02-27] MEDS: QUEtiapine FUMARATE 200 MG TABLET PO SCH (20:28)
[2022-02-28] MEDS: ASPIRIN/ACETAMINOPHEN/CAFFEINE 250-250-65 MG TABLET PO PRN ×2 (05:18→16:45)
[2022-02-28 08:27] VITALS: BP 100/60
[2022-02-28] MEDS: MULTIVITAMINS WITH MINERALS, THERAPEUTIC TABLET PO SCH ×2 (08:57→09:00)
[2022-02-28] MEDS: BuPROPion HCL XL 150 MG ER TABLET PO SCH (08:57)
[2022-02-28 09:16] LABS: GLUCOMETER DEV NAME(LOC) POC.BV
[2022-02-28] MEDS: OMEPRAZOLE 20 MG CAPSULE PO PRN (09:16)
[2022-02-28] MEDS: QUEtiapine FUMARATE 200 MG TABLET PO SCH (20:36)
[2022-02-28 20:51] VITALS: BP 115/75
[2022-03-01] MEDS: IBUPROFEN 600 MG TABLET PO PRN ×3 (00:33→21:04)
[2022-03-01 08:24] VITALS: BP 115/75
[2022-03-01] MEDS: BuPROPion HCL XL 150 MG ER TABLET PO SCH (08:45)
[2022-03-01] MEDS: MULTIVITAMINS WITH MINERALS, THERAPEUTIC TABLET PO SCH (08:49)
[2022-03-01] MEDS: OMEPRAZOLE 20 MG CAPSULE PO PRN (08:52)
[2022-03-01] MEDS: ASPIRIN/ACETAMINOPHEN/CAFFEINE 250-250-65 MG TABLET PO PRN (15:44)
[2022-03-01] MEDS: QUEtiapine FUMARATE 200 MG TABLET PO SCH (20:01)
[2022-03-01 20:40] VITALS: BP 131/77
[2022-03-02] MEDS: IBUPROFEN 600 MG TABLET PO PRN ×2 (07:06→18:44)
[2022-03-02 08:08] VITALS: BP 100/60
[2022-03-02] MEDS: OMEPRAZOLE 20 MG CAPSULE PO PRN (08:15)
[2022-03-02] MEDS: BuPROPion HCL XL 150 MG ER TABLET PO SCH (08:15)
[2022-03-02] MEDS: MULTIVITAMINS WITH MINERALS, THERAPEUTIC TABLET PO SCH (08:20)
[2022-03-02] MEDS: ASPIRIN/ACETAMINOPHEN/CAFFEINE 250-250-65 MG TABLET PO PRN (11:04)
[2022-03-02] MEDS: BENZOCAINE/MENTHOL LOZENGE PO PRN (11:12)
[2022-03-02 18:44] VITALS: BP 100/62
[2022-03-02 20:03] VITALS: BP 101/63
[2022-03-02] MEDS: QUEtiapine FUMARATE 200 MG TABLET PO SCH (20:20)
[2022-03-03 06:15] VITALS: BP 110/62
[2022-03-03] MEDS: ASPIRIN/ACETAMINOPHEN/CAFFEINE 250-250-65 MG TABLET PO PRN ×2 (06:26→20:42)
[2022-03-03 08:20] VITALS: BP 115/73
[2022-03-03] MEDS: OMEPRAZOLE 20 MG CAPSULE PO PRN (08:24)
[2022-03-03] MEDS: IBUPROFEN 600 MG TABLET PO PRN (08:24)
[2022-03-03] MEDS: BuPROPion HCL XL 150 MG ER TABLET PO SCH (08:24)
[2022-03-03] MEDS: MULTIVITAMINS WITH MINERALS, THERAPEUTIC TABLET PO SCH (08:48)
[2022-03-03] MEDS: QUEtiapine FUMARATE 200 MG TABLET PO SCH (20:04)
[2022-03-03 20:07] VITALS: BP 104/68
[2022-03-03 20:42] VITALS: BP 112/65
[2022-03-04] MEDS: ASPIRIN/ACETAMINOPHEN/CAFFEINE 250-250-65 MG TABLET PO PRN ×2 (06:52→16:56)
[2022-03-04] MEDS: BuPROPion HCL XL 150 MG ER TABLET PO SCH (08:26)
[2022-03-04] MEDS: MULTIVITAMINS WITH MINERALS, THERAPEUTIC TABLET PO SCH (08:29)
[2022-03-04] MEDS: OMEPRAZOLE 20 MG CAPSULE PO PRN (08:36)
[2022-03-04] MEDS: IBUPROFEN 600 MG TABLET PO PRN (11:27)
[2022-03-04] MEDS: QUEtiapine FUMARATE 200 MG TABLET PO SCH (20:11)
[2022-03-05 08:47] VITALS: BP 112/68
[2022-03-05] MEDS: BuPROPion HCL XL 150 MG ER TABLET PO SCH (08:57)
[2022-03-05] MEDS: MULTIVITAMINS WITH MINERALS, THERAPEUTIC TABLET PO SCH (09:00)
[2022-03-05] MEDS: OMEPRAZOLE 20 MG CAPSULE PO PRN (09:01)
[2022-03-05 16:09] VITALS: BP 110/60
[2022-03-05] MEDS: IBUPROFEN 600 MG TABLET PO PRN (16:12)
[2022-03-05 19:13] VITALS: BP 111/75
[2022-03-05] MEDS: ASPIRIN/ACETAMINOPHEN/CAFFEINE 250-250-65 MG TABLET PO PRN (19:16)
[2022-03-05 20:34] VITALS: BP 113/74
[2022-03-05] MEDS: QUEtiapine FUMARATE 200 MG TABLET PO SCH (20:39)
[2022-03-06 08:30] VITALS: BP 102/66
[2022-03-06] MEDS: OMEPRAZOLE 20 MG CAPSULE PO PRN (08:36)
[2022-03-06] MEDS: BuPROPion HCL XL 150 MG ER TABLET PO SCH (08:36)
[2022-03-06] MEDS: MULTIVITAMINS WITH MINERALS, THERAPEUTIC TABLET PO SCH (08:37)
[2022-03-06 12:11] VITALS: BP 125/70
[2022-03-06] MEDS: ASPIRIN/ACETAMINOPHEN/CAFFEINE 250-250-65 MG TABLET PO PRN (12:13)
[2022-03-06 20:11] VITALS: BP 108/73
[2022-03-06] MEDS: QUEtiapine FUMARATE 200 MG TABLET PO SCH (20:34)
[2022-03-07] MEDS: MULTIVITAMINS WITH MINERALS, THERAPEUTIC TABLET PO SCH (09:00)
[2022-03-07] MEDS: BuPROPion HCL XL 150 MG ER TABLET PO SCH (09:49)
[2022-03-07] MEDS: OMEPRAZOLE 20 MG CAPSULE PO PRN (10:00)
[2022-03-07] MEDS: ASPIRIN/ACETAMINOPHEN/CAFFEINE 250-250-65 MG TABLET PO PRN ×2 (10:36→19:54)
[2022-03-07] MEDS: PEG 400/HYPROMELLOSE/GLYCERIN 15 ML OPHTHALMIC SOLUTION OU PRN (12:41)
[2022-03-07 20:11] VITALS: BP 112/80
[2022-03-07 20:15] VITALS: BP 118/73
[2022-03-07] MEDS: QUEtiapine FUMARATE 200 MG TABLET PO SCH (20:30)
[2022-03-08 08:44] VITALS: BP 102/56
[2022-03-08] MEDS: MULTIVITAMINS WITH MINERALS, THERAPEUTIC TABLET PO SCH (09:00)
[2022-03-08] MEDS: BuPROPion HCL XL 150 MG ER TABLET PO SCH (09:10)
[2022-03-08] MEDS: OMEPRAZOLE 20 MG CAPSULE PO PRN (09:11)
[2022-03-08] MEDS: ASPIRIN/ACETAMINOPHEN/CAFFEINE 250-250-65 MG TABLET PO PRN (16:24)
[2022-03-08] MEDS: PEG 400/HYPROMELLOSE/GLYCERIN 15 ML OPHTHALMIC SOLUTION OU PRN (18:14)
[2022-03-08] MEDS: QUEtiapine FUMARATE 200 MG TABLET PO SCH (20:07)
[2022-03-08 21:02] VITALS: BP 120/70
[2022-03-09] MEDS: METHYL SALICYLATE/MENTHOL 85 GM CREAM TP PRN (06:29)
[2022-03-09 06:30] VITALS: BP 104/58
[2022-03-09] MEDS: ASPIRIN/ACETAMINOPHEN/CAFFEINE 250-250-65 MG TABLET PO PRN ×2 (06:30→16:21)
[2022-03-09] MEDS: OMEPRAZOLE 20 MG CAPSULE PO PRN (09:04)
[2022-03-09] MEDS: BuPROPion HCL XL 150 MG ER TABLET PO SCH (09:04)
[2022-03-09 09:59] VITALS: BP 93/62
[2022-03-09] MEDS: IBUPROFEN 600 MG TABLET PO PRN (19:52)
[2022-03-09] MEDS: QUEtiapine FUMARATE 200 MG TABLET PO SCH (20:05)
[2022-03-09 23:36] LABS: GLUCOMETER DEV NAME(LOC) POC.BV
[2022-03-10] MEDS: OMEPRAZOLE 20 MG CAPSULE PO PRN (08:24)
[2022-03-10] MEDS: BuPROPion HCL XL 150 MG ER TABLET PO SCH (08:25)
[2022-03-10 10:57] VITALS: BP 111/70
[2022-03-10] MEDS: ASPIRIN/ACETAMINOPHEN/CAFFEINE 250-250-65 MG TABLET PO PRN (12:50)
[2022-03-10 17:23] VITALS: BP 119/70
[2022-03-10] MEDS: IBUPROFEN 600 MG TABLET PO PRN (17:25)
[2022-03-10] MEDS: PEG 400/HYPROMELLOSE/GLYCERIN 15 ML OPHTHALMIC SOLUTION OU PRN (19:50)
[2022-03-10] MEDS: QUEtiapine FUMARATE 200 MG TABLET PO SCH (20:28)
[2022-03-10 20:45] VITALS: BP 110/78
[2022-03-11 00:21] VITALS: BP 112/76
[2022-03-11] MEDS: ASPIRIN/ACETAMINOPHEN/CAFFEINE 250-250-65 MG TABLET PO PRN ×2 (00:27→12:15)
[2022-03-11] MEDS: OMEPRAZOLE 20 MG CAPSULE PO PRN (09:47)
[2022-03-11] MEDS: BuPROPion HCL XL 150 MG ER TABLET PO SCH (09:48)
[2022-03-11 12:15] VITALS: BP 125/78
[2022-03-11] MEDS: BENZOCAINE/MENTHOL LOZENGE PO PRN (12:15)
[2022-03-11 20:05] VITALS: BP 108/71
[2022-03-11] MEDS: QUEtiapine FUMARATE 200 MG TABLET PO SCH (20:17)
[2022-03-12] MEDS: ASPIRIN/ACETAMINOPHEN/CAFFEINE 250-250-65 MG TABLET PO PRN (01:56)
[2022-03-12] MEDS: METHYL SALICYLATE/MENTHOL 85 GM CREAM TP PRN (01:59)
[2022-03-12] MEDS: BuPROPion HCL XL 150 MG ER TABLET PO SCH (08:18)
[2022-03-12 09:29] VITALS: BP 115/82
[2022-03-12] MEDS: OMEPRAZOLE 20 MG CAPSULE PO PRN (09:50)
[2022-03-12] MEDS ORDERED: QUET200T30 PO (10:15)
[2022-03-12] MEDS ORDERED: BUPR-49 PO (10:15)
== END 2022-03-12 10:45 | disposition home or self-care (01) | DRG 885 ==
LOC: B2X 22:19 → UNDOADMIN 22:19 → B2X 22:20 → B3A 03-02 19:25 → B2X 03-03 08:46 → B3A 03-03 08:46 → UNDODISIN 03-12 10:45
PROVIDERS: ADMIT Psychiatry & Neurology Psychiatry; ATTEND Psychiatry & Neurology Psychiatry
DX: F31.9 Bipolar disorder, unspecified (principal); F25.9 Schizoaffective disorder, unspecified; D50.9 Iron deficiency anemia, unspecified; E87.6 Hypokalemia; F41.9 Anxiety disorder, unspecified; G43.909 Migraine, unspecified, not intractable, without status migrainosus; M54.50 Low back pain, unspecified; F12.90 Cannabis use, unspecified, uncomplicated; G47.00 Insomnia, unspecified; K59.00 Constipation, unspecified; Z20.822 Contact with and (suspected) exposure to COVID-19; Z53.20 Procedure and treatment not carried out because of patient's decision for unspecified reasons; Z28.21 Immunization not carried out because of patient refusal; Z88.0 Allergy status to penicillin
CPT/HCPCS: 80053; 80061; 83036; 84439; 84443; 85025; 87081; 90686

== ENCOUNTER 2022-06-13 22:11 | Inpatient (IN) | payer MEDICARE, MEDICAID ==
[~2022-06-13] VITALS: Ht 162.6 cm; Wt 80.8 kg
[2022-06-13] MEDS ORDERED: LORazepam 2 MG TABLET PO PRN (22:45)
[2022-06-13] MEDS ORDERED: ZOLPIDEM TARTRATE 10 MG TABLET PO PRN (22:45)
[2022-06-13] MEDS ORDERED: HALOPERIDOL 5 MG TABLET PO PRN (22:45)
[2022-06-13 22:56] LABS: GLUCOMETER DEV NAME(LOC) POC.BV
[2022-06-13 23:00] VITALS: BP 109/61
[2022-06-14 07:39] LABS: BASOPHILS % (AUTO) 0.4 % (0.0-2.0); EOSINOPHILS % (AUTO) 0 % (1.0-6.0); HEMATOCRIT 25.9 % (36-46); HEMOGLOBIN 8.4 g/dL (12.0-16.0); LYMPHOCYTES # (AUTO) 1.5 K/uL (1.0-4.8); LYMPHOCYTES % (AUTO) 33.7 % (22.0-44.0); MEAN CORPUSCULAR HEMOGLOBIN 23.8 pg (26.0-34.0); MEAN CORPUSCULAR HGB CONC 32.3 G/dL (31.0-37.0); MEAN CORPUSCULAR VOLUME 74 fL (80-100); MONOCYTES # (AUTO) 0.6 K/uL (0.1-1.0); MONOCYTES % (AUTO) 13.7 % (2.0-9.0); NEUTROPHILS # (AUTO) 2.4 K/uL (1.8-7.7); NEUTROPHILS % (AUTO) 52.2 % (40.0-70.0); PLATELET COUNT (AUTO) 389 K/uL (150-450); RED BLOOD CELL COUNT(AUTO) 3.52 MIL/uL (4.00-5.20); RED CELL DISTRIBUTION WIDTH 18.5 % (11.5-14.5)
[2022-06-14 07:49] LABS: HEMOGLOBIN A1C 5.9 % (3.8-5.6)
[2022-06-14 08:02] LABS: ALANINE AMINOTRANSFERASE 15 U/L (12-78); ALBUMIN 3.4 g/dL (3.4-5.0); ALKALINE PHOSPHATASE 96 U/L (46-116); ANION GAP 6 mmol/L (8-16); ASPARTATE AMINOTRANSFERASE 16 U/L (15-37); BILIRUBIN,TOTAL 0.2 mg/dL (0.1-1.0); CALCIUM, TOTAL 9.1 mg/dL (8.8-10.5); CARBON DIOXIDE 26 mmol/L (22-29); CHLORIDE 104 mmol/L (98-107); CHOL/HDL RATIO 2.9 (3.9-5.7); CHOLESTEROL 165 mg/dL (131-200); CREATININE 0.94 mg/dL (0.60-1.30); FREE T4 (FREE THYROXINE) 0.84 ng/dL (0.76-1.46); GLOMERULAR FILTR. RATE CALC > 60 mL/min (>60); GLUCOSE,RANDOM 97 mg/dL (70-110); HDL CHOLESTEROL 57 mg/dL (40-60); LDL CHOL (CALC.) 96 mg/dL (0-130); POTASSIUM 4.1 mmol/L (3.5-5.1); SODIUM SERUM 136 mmol/L (136-145); THYROID STIMULATING HORMONE 1.52 uIU/mL (0.36-3.74); TOTAL PROTEIN, SERUM 6.3 g/dL (6.4-8.2); TRIGLYCERIDES 58 mg/dL (15-150); UREA NITROGEN, BLOOD 17 mg/dL (7-18)
[2022-06-14 08:27] VITALS: BP 107/68
[2022-06-14] MEDS ORDERED: MAG HYDROX/AL HYDROX/SIMETH ES 30 ML SUSPENSION UDCUP PO PRN (08:30)
[2022-06-14] MEDS ORDERED: CloNIDine HCL 0.1 MG TABLET PO PRN (08:30)
[2022-06-14] MEDS ORDERED: ACETAMINOPHEN 325 MG TABLET PO PRN (08:30)
[2022-06-14] MEDS ORDERED: BACITRACIN 28 GM OINTMENT TP PRN (08:30)
[2022-06-14] MEDS ORDERED: IBUPROFEN 600 MG TABLET PO PRN (08:30)
[2022-06-14] MEDS ORDERED: OMEPRAZOLE 20 MG CAPSULE PO PRN (08:30)
[2022-06-14] MEDS ORDERED: LOPERAMIDE HCL 2 MG CAPSULE PO PRN (08:30)
[2022-06-14] MEDS ORDERED: ONDANSETRON HCL 4 MG TABLET PO PRN (08:30)
[2022-06-14] MEDS ORDERED: PETROLATUM,WHITE 28 GM JELLY TP PRN (08:30)
[2022-06-14] MEDS ORDERED: BENZOCAINE/MENTHOL LOZENGE PO PRN (08:30)
[2022-06-14] MEDS ORDERED: ALBUTEROL SULFATE HFA 90 MCG/PUFF 8 GM INHALER IH PRN (08:30)
[2022-06-14] MEDS: MULTIVITAMINS WITH MINERALS, THERAPEUTIC TABLET PO SCH (09:00)
[2022-06-14] MEDS ORDERED: ASPIRIN/ACETAMINOPHEN/CAFFEINE 250-250-65 MG TABLET PO PRN (15:30)
[2022-06-14] MEDS: FERROUS SULFATE 325 MG EC TABLET PO SCH (16:30)
[2022-06-14 20:24] VITALS: BP 119/72
[2022-06-14] MEDS: QUEtiapine FUMARATE 200 MG TABLET PO SCH (20:29)
[2022-06-15] MEDS: FERROUS SULFATE 325 MG EC TABLET PO SCH ×3 (06:44→17:58)
[2022-06-15] MEDS: METHYL SALICYLATE/MENTHOL 85 GM CREAM TP PRN ×2 (06:55→13:47)
[2022-06-15] MEDS: MULTIVITAMINS WITH MINERALS, THERAPEUTIC TABLET PO SCH (09:08)
[2022-06-15] MEDS: FAMOTIDINE 20 MG TABLET PO SCH ×3 (09:08→17:58)
[2022-06-15] MEDS: BuPROPion HCL XL 150 MG ER TABLET PO SCH (09:08)
[2022-06-15] MEDS: ASPIRIN/ACETAMINOPHEN/CAFFEINE 250-250-65 MG TABLET PO PRN (15:07)
[2022-06-15 20:00] VITALS: BP 106/63
[2022-06-15] MEDS: QUEtiapine FUMARATE 200 MG TABLET PO SCH (20:06)
[2022-06-16] MEDS: METHYL SALICYLATE/MENTHOL 85 GM CREAM TP PRN ×2 (01:37→10:41)
[2022-06-16] MEDS: ASPIRIN/ACETAMINOPHEN/CAFFEINE 250-250-65 MG TABLET PO PRN ×3 (01:37→20:45)
[2022-06-16] MEDS: FERROUS SULFATE 325 MG EC TABLET PO SCH ×2 (06:42→16:38)
[2022-06-16] MEDS: BuPROPion HCL XL 150 MG ER TABLET PO SCH (08:49)
[2022-06-16] MEDS: FAMOTIDINE 20 MG TABLET PO SCH ×2 (08:49→16:31)
[2022-06-16] MEDS: MULTIVITAMINS WITH MINERALS, THERAPEUTIC TABLET PO SCH (09:00)
[2022-06-16 10:44] VITALS: BP 111/62
[2022-06-16] MEDS: QUEtiapine FUMARATE 200 MG TABLET PO SCH (20:30)
[2022-06-16 20:45] VITALS: BP 115/68
[2022-06-17] MEDS: FERROUS SULFATE 325 MG EC TABLET PO SCH ×2 (06:45→17:00)
[2022-06-17 08:00] VITALS: BP_SYST 114; BP_DIAS 8; BP_DIAS 80
[2022-06-17] MEDS: MULTIVITAMINS WITH MINERALS, THERAPEUTIC TABLET PO SCH (08:50)
[2022-06-17] MEDS: ASPIRIN/ACETAMINOPHEN/CAFFEINE 250-250-65 MG TABLET PO PRN ×2 (08:50→18:05)
[2022-06-17] MEDS: BuPROPion HCL XL 150 MG ER TABLET PO SCH (08:51)
[2022-06-17] MEDS: FAMOTIDINE 20 MG TABLET PO SCH ×2 (09:33→17:42)
[2022-06-17 20:46] VITALS: BP 115/72
[2022-06-17] MEDS: QUEtiapine FUMARATE 200 MG TABLET PO SCH (20:52)
[2022-06-18] MEDS: FERROUS SULFATE 325 MG EC TABLET PO SCH ×2 (06:46→16:56)
[2022-06-18 08:17] VITALS: BP 105/60
[2022-06-18] MEDS: MULTIVITAMINS WITH MINERALS, THERAPEUTIC TABLET PO SCH (09:00)
[2022-06-18 09:11] LABS: GLUCOMETER DEV NAME(LOC) POC.BV
[2022-06-18] MEDS: FAMOTIDINE 20 MG TABLET PO SCH ×2 (09:24→16:54)
[2022-06-18] MEDS: BuPROPion HCL XL 150 MG ER TABLET PO SCH (09:24)
[2022-06-18] MEDS: ASPIRIN/ACETAMINOPHEN/CAFFEINE 250-250-65 MG TABLET PO PRN ×2 (12:09→19:04)
[2022-06-18] MEDS: MAGNESIUM HYDROXIDE SUSPENSION 30 ML UDCUP PO PRN (12:57)
[2022-06-18] MEDS: METHYL SALICYLATE/MENTHOL 85 GM CREAM TP PRN (19:09)
[2022-06-18] MEDS: QUEtiapine FUMARATE 200 MG TABLET PO SCH (20:04)
[2022-06-19] MEDS: FERROUS SULFATE 325 MG EC TABLET PO SCH ×2 (06:35→16:51)
[2022-06-19] MEDS: MULTIVITAMINS WITH MINERALS, THERAPEUTIC TABLET PO SCH ×2 (09:00→09:03)
[2022-06-19] MEDS: BuPROPion HCL XL 150 MG ER TABLET PO SCH (09:03)
[2022-06-19] MEDS: FAMOTIDINE 20 MG TABLET PO SCH ×2 (09:03→16:48)
[2022-06-19 10:55] VITALS: BP 101/79
[2022-06-19] MEDS: ASPIRIN/ACETAMINOPHEN/CAFFEINE 250-250-65 MG TABLET PO PRN ×2 (10:55→20:05)
[2022-06-19] MEDS: QUEtiapine FUMARATE 200 MG TABLET PO SCH (20:04)
[2022-06-19 20:30] VITALS: BP 110/71
[2022-06-20] MEDS: ASPIRIN/ACETAMINOPHEN/CAFFEINE 250-250-65 MG TABLET PO PRN ×2 (09:31→16:46)
[2022-06-20] MEDS: FAMOTIDINE 20 MG TABLET PO SCH ×2 (09:31→16:29)
[2022-06-20] MEDS: BuPROPion HCL XL 150 MG ER TABLET PO SCH (09:32)
[2022-06-20 11:57] VITALS: BP 117/74
[2022-06-20 16:47] VITALS: BP 122/68
[2022-06-20] MEDS: QUEtiapine FUMARATE 200 MG TABLET PO SCH (20:30)
[2022-06-20 20:44] VITALS: BP 108/69
[2022-06-21] MEDS: ASPIRIN/ACETAMINOPHEN/CAFFEINE 250-250-65 MG TABLET PO PRN ×3 (03:35→20:48)
[2022-06-21 08:11] VITALS: BP 100/68
[2022-06-21] MEDS: BuPROPion HCL XL 150 MG ER TABLET PO SCH (08:58)
[2022-06-21] MEDS: FAMOTIDINE 20 MG TABLET PO SCH ×2 (09:06→16:39)
[2022-06-21] MEDS: MAGNESIUM HYDROXIDE SUSPENSION 30 ML UDCUP PO PRN (16:47)
[2022-06-21 20:17] VITALS: BP 107/72
[2022-06-21] MEDS: QUEtiapine FUMARATE 200 MG TABLET PO SCH (20:48)
[2022-06-22] MEDS: BuPROPion HCL XL 150 MG ER TABLET PO SCH (09:01)
[2022-06-22] MEDS: FAMOTIDINE 20 MG TABLET PO SCH ×2 (09:01→17:11)
[2022-06-22] MEDS: ASPIRIN/ACETAMINOPHEN/CAFFEINE 250-250-65 MG TABLET PO PRN ×2 (11:08→20:15)
[2022-06-22] MEDS: QUEtiapine FUMARATE 200 MG TABLET PO SCH (20:12)
[2022-06-23] MEDS: ASPIRIN/ACETAMINOPHEN/CAFFEINE 250-250-65 MG TABLET PO PRN ×3 (04:32→21:09)
[2022-06-23] MEDS: FAMOTIDINE 20 MG TABLET PO SCH ×2 (09:00→16:57)
[2022-06-23] MEDS: BuPROPion HCL XL 150 MG ER TABLET PO SCH (09:00)
[2022-06-23 12:38] VITALS: BP 110/79
[2022-06-23] MEDS: QUEtiapine FUMARATE 200 MG TABLET PO SCH (20:14)
[2022-06-23 20:43] VITALS: BP 117/74
[2022-06-24] MEDS: BuPROPion HCL XL 150 MG ER TABLET PO SCH (08:11)
[2022-06-24] MEDS: FAMOTIDINE 20 MG TABLET PO SCH ×2 (08:11→16:52)
[2022-06-24 09:08] VITALS: BP 115/78
[2022-06-24] MEDS: ASPIRIN/ACETAMINOPHEN/CAFFEINE 250-250-65 MG TABLET PO PRN ×2 (10:30→20:11)
[2022-06-24] MEDS: QUEtiapine FUMARATE 200 MG TABLET PO SCH (20:12)
[2022-06-25] MEDS: ASPIRIN/ACETAMINOPHEN/CAFFEINE 250-250-65 MG TABLET PO PRN ×2 (05:48→16:43)
[2022-06-25] MEDS: METHYL SALICYLATE/MENTHOL 85 GM CREAM TP PRN (05:49)
[2022-06-25] MEDS: FAMOTIDINE 20 MG TABLET PO SCH ×2 (08:37→16:30)
[2022-06-25] MEDS: BuPROPion HCL XL 150 MG ER TABLET PO SCH (08:37)
[2022-06-25 08:55] VITALS: BP 112/77
[2022-06-25 09:46] LABS: GLUCOMETER DEV NAME(LOC) POC.BV
[2022-06-25 16:43] VITALS: BP 118/67
[2022-06-25] MEDS: QUEtiapine FUMARATE 200 MG TABLET PO SCH (20:12)
[2022-06-25 20:26] VITALS: BP 112/76
[2022-06-26 04:40] VITALS: BP 124/82
[2022-06-26] MEDS: METHYL SALICYLATE/MENTHOL 85 GM CREAM TP PRN ×2 (04:45→20:33)
[2022-06-26] MEDS: ASPIRIN/ACETAMINOPHEN/CAFFEINE 250-250-65 MG TABLET PO PRN ×3 (04:45→20:32)
[2022-06-26] MEDS: BuPROPion HCL XL 150 MG ER TABLET PO SCH (08:32)
[2022-06-26] MEDS: FAMOTIDINE 20 MG TABLET PO SCH ×2 (08:32→16:01)
[2022-06-26 08:58] VITALS: BP 122/80
[2022-06-26] MEDS: QUEtiapine FUMARATE 200 MG TABLET PO SCH (20:31)
[2022-06-26 21:23] VITALS: BP 114/77
[2022-06-27] MEDS: FAMOTIDINE 20 MG TABLET PO SCH ×2 (08:02→16:19)
[2022-06-27] MEDS: BuPROPion HCL XL 150 MG ER TABLET PO SCH (08:03)
[2022-06-27] MEDS: ASPIRIN/ACETAMINOPHEN/CAFFEINE 250-250-65 MG TABLET PO PRN ×2 (10:43→19:31)
[2022-06-27] MEDS: QUEtiapine FUMARATE 200 MG TABLET PO SCH (20:20)
[2022-06-27 21:59] VITALS: BP 106/72
[2022-06-28] MEDS: ASPIRIN/ACETAMINOPHEN/CAFFEINE 250-250-65 MG TABLET PO PRN ×2 (06:13→15:52)
[2022-06-28] MEDS: FAMOTIDINE 20 MG TABLET PO SCH ×2 (08:08→16:31)
[2022-06-28] MEDS: BuPROPion HCL XL 150 MG ER TABLET PO SCH (08:08)
[2022-06-28 15:50] VITALS: BP 116/68
[2022-06-28] MEDS: MAGNESIUM HYDROXIDE SUSPENSION 30 ML UDCUP PO PRN (18:11)
[2022-06-28] MEDS: QUEtiapine FUMARATE 200 MG TABLET PO SCH (20:28)
[2022-06-28 20:56] VITALS: BP 108/74
[2022-06-29 03:47] VITALS: BP 112/80
[2022-06-29] MEDS: ASPIRIN/ACETAMINOPHEN/CAFFEINE 250-250-65 MG TABLET PO PRN ×2 (03:50→13:03)
[2022-06-29] MEDS: METHYL SALICYLATE/MENTHOL 85 GM CREAM TP PRN (03:51)
[2022-06-29] MEDS: FAMOTIDINE 20 MG TABLET PO SCH ×2 (08:01→17:00)
[2022-06-29] MEDS: BuPROPion HCL XL 150 MG ER TABLET PO SCH (08:01)
[2022-06-29 08:30] VITALS: BP 97/58
[2022-06-29] MEDS: MAGNESIUM HYDROXIDE SUSPENSION 30 ML UDCUP PO PRN (16:49)
[2022-06-29 20:00] VITALS: BP 109/70
[2022-06-29] MEDS: QUEtiapine FUMARATE 200 MG TABLET PO SCH (20:03)
[2022-06-30] MEDS: ASPIRIN/ACETAMINOPHEN/CAFFEINE 250-250-65 MG TABLET PO PRN ×3 (01:47→20:03)
[2022-06-30] MEDS: METHYL SALICYLATE/MENTHOL 85 GM CREAM TP PRN (01:47)
[2022-06-30 08:09] VITALS: BP 117/72
[2022-06-30] MEDS: BuPROPion HCL XL 150 MG ER TABLET PO SCH (08:21)
[2022-06-30] MEDS: FAMOTIDINE 20 MG TABLET PO SCH (08:21)
[2022-06-30] MEDS ORDERED: BISACODYL 5 MG EC TABLET PO ONE (13:45)
[2022-06-30] MEDS: QUEtiapine FUMARATE 200 MG TABLET PO SCH (20:02)
[2022-06-30 20:03] VITALS: BP 106/62
[2022-07-01] MEDS: FAMOTIDINE 20 MG TABLET PO SCH (08:27)
[2022-07-01] MEDS: BuPROPion HCL XL 150 MG ER TABLET PO SCH (08:27)
[2022-07-01] MEDS: METHYL SALICYLATE/MENTHOL 85 GM CREAM TP PRN (10:17)
[2022-07-01] MEDS: ASPIRIN/ACETAMINOPHEN/CAFFEINE 250-250-65 MG TABLET PO PRN ×2 (10:17→20:12)
[2022-07-01 10:18] VITALS: BP 109/63
[2022-07-01 20:10] VITALS: BP 116/64
[2022-07-01] MEDS: QUEtiapine FUMARATE 200 MG TABLET PO SCH (20:10)
[2022-07-02 08:09] VITALS: BP 119/82
[2022-07-02 08:46] LABS: GLUCOMETER DEV NAME(LOC) POC.BV
[2022-07-02] MEDS: BuPROPion HCL XL 150 MG ER TABLET PO SCH (09:17)
[2022-07-02] MEDS: FAMOTIDINE 20 MG TABLET PO SCH (09:17)
[2022-07-02] MEDS: ASPIRIN/ACETAMINOPHEN/CAFFEINE 250-250-65 MG TABLET PO PRN ×2 (10:58→17:56)
[2022-07-02 17:54] VITALS: BP 111/71
[2022-07-02 20:02] VITALS: BP 107/61
[2022-07-02] MEDS: QUEtiapine FUMARATE 200 MG TABLET PO SCH (20:37)
[2022-07-03] MEDS: FAMOTIDINE 20 MG TABLET PO SCH (08:02)
[2022-07-03] MEDS: BuPROPion HCL XL 150 MG ER TABLET PO SCH (08:02)
[2022-07-03] MEDS: ASPIRIN/ACETAMINOPHEN/CAFFEINE 250-250-65 MG TABLET PO PRN ×2 (10:24→18:35)
[2022-07-03] MEDS: METHYL SALICYLATE/MENTHOL 85 GM CREAM TP PRN (18:35)
[2022-07-03 20:20] VITALS: BP 110/68
[2022-07-03] MEDS: QUEtiapine FUMARATE 200 MG TABLET PO SCH (20:36)
[2022-07-04] MEDS: ASPIRIN/ACETAMINOPHEN/CAFFEINE 250-250-65 MG TABLET PO PRN ×2 (06:14→16:16)
[2022-07-04 08:15] VITALS: BP 112/69
[2022-07-04] MEDS: BuPROPion HCL XL 150 MG ER TABLET PO SCH (08:29)
[2022-07-04] MEDS: FAMOTIDINE 20 MG TABLET PO SCH (08:29)
[2022-07-04 20:04] VITALS: BP 113/77
[2022-07-04] MEDS: QUEtiapine FUMARATE 200 MG TABLET PO SCH (20:39)
[2022-07-05] MEDS: ASPIRIN/ACETAMINOPHEN/CAFFEINE 250-250-65 MG TABLET PO PRN ×3 (03:55→20:20)
[2022-07-05] MEDS: BuPROPion HCL XL 150 MG ER TABLET PO SCH (09:43)
[2022-07-05] MEDS: FAMOTIDINE 20 MG TABLET PO SCH (09:43)
[2022-07-05 20:15] VITALS: BP 123/80
[2022-07-05] MEDS: QUEtiapine FUMARATE 200 MG TABLET PO SCH (20:20)
[2022-07-06] MEDS: FAMOTIDINE 20 MG TABLET PO SCH (08:49)
[2022-07-06] MEDS: BuPROPion HCL XL 150 MG ER TABLET PO SCH (08:49)
[2022-07-06] MEDS: DOCUSATE SODIUM 100 MG CAPSULE PO PRN (08:55)
[2022-07-06] MEDS: ASPIRIN/ACETAMINOPHEN/CAFFEINE 250-250-65 MG TABLET PO PRN (14:28)
[2022-07-06] MEDS: QUEtiapine FUMARATE 200 MG TABLET PO SCH (20:03)
[2022-07-06 20:18] VITALS: BP 115/68
[2022-07-07 03:50] VITALS: BP 99/65
[2022-07-07] MEDS: ASPIRIN/ACETAMINOPHEN/CAFFEINE 250-250-65 MG TABLET PO PRN ×2 (03:58→15:37)
[2022-07-07] MEDS: METHYL SALICYLATE/MENTHOL 85 GM CREAM TP PRN (03:59)
[2022-07-07] MEDS: BuPROPion HCL XL 150 MG ER TABLET PO SCH (09:20)
[2022-07-07] MEDS: FAMOTIDINE 20 MG TABLET PO SCH (09:20)
[2022-07-07 20:05] VITALS: BP 113/76
[2022-07-07] MEDS: QUEtiapine FUMARATE 200 MG TABLET PO SCH (20:33)
[2022-07-08 05:37] VITALS: BP 107/73
[2022-07-08] MEDS: ASPIRIN/ACETAMINOPHEN/CAFFEINE 250-250-65 MG TABLET PO PRN ×2 (05:50→17:55)
[2022-07-08 08:05] VITALS: BP 112/72
[2022-07-08] MEDS: FAMOTIDINE 20 MG TABLET PO SCH (08:28)
[2022-07-08] MEDS: BuPROPion HCL XL 150 MG ER TABLET PO SCH (08:29)
[2022-07-08] MEDS: DOCUSATE SODIUM 100 MG CAPSULE PO PRN (09:03)
[2022-07-08] MEDS ORDERED: BUPR-49 PO (15:20)
[2022-07-08] MEDS ORDERED: QUET200T30 PO (15:20)
[2022-07-08] MEDS: QUEtiapine FUMARATE 200 MG TABLET PO SCH (20:18)
[2022-07-09] MEDS: FAMOTIDINE 20 MG TABLET PO SCH (09:18)
[2022-07-09] MEDS: BuPROPion HCL XL 150 MG ER TABLET PO SCH (09:18)
[2022-07-09] MEDS: ASPIRIN/ACETAMINOPHEN/CAFFEINE 250-250-65 MG TABLET PO PRN (09:28)
== END 2022-07-09 10:57 | disposition home or self-care (01) | DRG 885 ==
LOC: B2X 22:44
PROVIDERS: ADMIT Psychiatry & Neurology Psychiatry; ATTEND Psychiatry & Neurology Psychiatry
DX: F25.9 Schizoaffective disorder, unspecified (principal); R45.851 Suicidal ideations; D50.9 Iron deficiency anemia, unspecified; G47.00 Insomnia, unspecified; F12.90 Cannabis use, unspecified, uncomplicated; G43.909 Migraine, unspecified, not intractable, without status migrainosus; K59.00 Constipation, unspecified; M54.50 Low back pain, unspecified; F41.9 Anxiety disorder, unspecified; F32.A Depression, unspecified; M54.9 Dorsalgia, unspecified; Z88.0 Allergy status to penicillin; Z20.822 Contact with and (suspected) exposure to COVID-19
CPT/HCPCS: 80053; 80061; 83036; 84439; 84443; 85025; 87081

== ENCOUNTER 2022-12-23 15:49 | Inpatient (IN) | payer MEDICARE, MEDICAID ==
[~2022-12-23] VITALS: Ht 162.6 cm; Wt 76.2 kg
[~2022-12-23 15:49] MED LIST changes: -BUPR-317 PO; +BUPR450T3 PO
[2022-12-23 18:22] LABS: GLUCOMETER DEV NAME(LOC) POC.BV; POC SARS-COV2 AG, FIA NEGATIVE (NEGATIVE)
[2022-12-23] MEDS ORDERED: LORazepam 2 MG TABLET PO PRN (18:30)
[2022-12-23] MEDS ORDERED: ZOLPIDEM TARTRATE 10 MG TABLET PO PRN (18:30)
[2022-12-23] MEDS ORDERED: HALOPERIDOL 5 MG TABLET PO PRN (18:30)
[2022-12-23] MEDS: QUEtiapine FUMARATE 200 MG TABLET PO SCH (20:06)
[2022-12-23 20:09] VITALS: BP 113/55; PULSE 76; RESP 18; TEMP 97.6; O2SAT 98
[2022-12-23] MEDS ORDERED: INFLUENZA VIRUS VACCINE QVS 2023-24 (6MO+)/PF 60 MCG/0.5 ML SYRINGE IM. ONE (20:15)
[2022-12-24] MEDS ORDERED: BACITRACIN 28 GM OINTMENT TP PRN (06:00)
[2022-12-24] MEDS ORDERED: ONDANSETRON HCL 4 MG TABLET PO PRN (06:00)
[2022-12-24] MEDS ORDERED: MAGNESIUM HYDROXIDE SUSPENSION 30 ML UDCUP PO PRN (06:00)
[2022-12-24] MEDS ORDERED: ACETAMINOPHEN 325 MG TABLET PO PRN (06:00)
[2022-12-24] MEDS ORDERED: ALBUTEROL SULFATE HFA 90 MCG/PUFF 8 GM INHALER IH PRN (06:00)
[2022-12-24] MEDS ORDERED: LOPERAMIDE HCL 2 MG CAPSULE PO PRN (06:00)
[2022-12-24] MEDS ORDERED: PETROLATUM,WHITE 28 GM JELLY TP PRN (06:00)
[2022-12-24] MEDS ORDERED: CloNIDine HCL 0.1 MG TABLET PO PRN (06:00)
[2022-12-24] MEDS ORDERED: MAG HYDROX/ALUMINUM HYD/SIMETH ES 30 ML SUSPENSION UDCUP PO PRN (06:00)
[2022-12-24] MEDS ORDERED: DOCUSATE SODIUM 100 MG CAPSULE PO PRN (06:00)
[2022-12-24 07:54] VITALS: BP 100/59; PULSE 72; RESP 18; TEMP 97.6; O2SAT 100
[2022-12-24 08:19] LABS: BASOPHILS % (AUTO) 0.6 % (0.0-2.0); EOSINOPHILS % (AUTO) 0 % (1.0-6.0); HEMOGLOBIN 7.4 g/dL (12.0-16.0); LYMPHOCYTES # (AUTO) 1.6 K/uL (1.0-4.8); LYMPHOCYTES % (AUTO) 42.5 % (22.0-44.0); MEAN CORPUSCULAR HEMOGLOBIN 21.1 pg (26.0-34.0); MEAN CORPUSCULAR VOLUME 68 fL (80-100); MONOCYTES # (AUTO) 0.5 K/uL (0.1-1.0); MONOCYTES % (AUTO) 13.1 % (2.0-9.0); NEUTROPHILS # (AUTO) 1.7 K/uL (1.8-7.7); NEUTROPHILS % (AUTO) 43.8 % (40.0-70.0); PLATELET COUNT (AUTO) 280 K/uL (150-450); RED BLOOD CELL COUNT(AUTO) 3.53 MIL/uL (4.00-5.20); RED CELL DISTRIBUTION WIDTH 22.3 % (11.5-14.5); WHITE BLOOD COUNT (AUTO) 3.9 K/uL (4.5-11.0)
[2022-12-24 08:28] LABS: HEMOGLOBIN A1C 5.4 % (3.8-5.6)
[2022-12-24 08:38] LABS: RBC MORPHOLOGY COMMENT ABNORMAL RBC MORPH
[2022-12-24 08:49] LABS: ALANINE AMINOTRANSFERASE 17 U/L (12-78); ALBUMIN 3.2 g/dL (3.4-5.0); ALKALINE PHOSPHATASE 98 U/L (46-116); ANION GAP 7 mmol/L (8-16); ASPARTATE AMINOTRANSFERASE 11 U/L (15-37); BILIRUBIN,TOTAL 0.2 mg/dL (0.1-1.0); CALCIUM, TOTAL 9.2 mg/dL (8.8-10.5); CARBON DIOXIDE 28 mmol/L (22-29); CHLORIDE 108 mmol/L (98-107); CHOL/HDL RATIO 2.9 (3.9-5.7); CHOLESTEROL 179 mg/dL (131-200); CREATININE 0.94 mg/dL (0.60-1.30); FREE T4 (FREE THYROXINE) 0.98 ng/dL (0.76-1.46); GLOMERULAR FILTR. RATE CALC > 60 mL/min (>60); GLUCOSE,RANDOM 95 mg/dL (70-110); HDL CHOLESTEROL 61 mg/dL (40-60); LDL CHOL (CALC.) 111 mg/dL (0-130); POTASSIUM 3.8 mmol/L (3.5-5.1); SODIUM SERUM 143 mmol/L (136-145); T4 (THYROXINE) 6.7 mcg/dL (4.7-13.3); THYROID STIMULATING HORMONE 1.02 uIU/mL (0.36-3.74); TOTAL PROTEIN, SERUM 6.5 g/dL (6.4-8.2); TRIGLYCERIDES 35 mg/dL (15-150); UREA NITROGEN, BLOOD 21 mg/dL (7-18)
[2022-12-24 09:18] VITALS: RESP 18
[2022-12-24] MEDS: ASPIRIN/ACETAMINOPHEN/CAFFEINE 250-250-65 MG TABLET PO PRN ×2 (09:24→20:24)
[2022-12-24] MEDS: BuPROPion HCL XL 150 MG ER TABLET PO SCH (09:24)
[2022-12-24] MEDS: QUEtiapine FUMARATE 200 MG TABLET PO SCH (20:00)
[2022-12-24 20:42] VITALS: BP 128/79; PULSE 69; RESP 17; TEMP 97.8; O2SAT 98
[2022-12-25] MEDS: BuPROPion HCL XL 150 MG ER TABLET PO SCH (09:01)
[2022-12-25] MEDS: OMEPRAZOLE 20 MG CAPSULE PO PRN (09:36)
[2022-12-25] MEDS: ASPIRIN/ACETAMINOPHEN/CAFFEINE 250-250-65 MG TABLET PO PRN (20:16)
[2022-12-25] MEDS: QUEtiapine FUMARATE 200 MG TABLET PO SCH (20:16)
[2022-12-25 20:56] VITALS: BP 109/62; PULSE 78; RESP 18; TEMP 97.8; O2SAT 98
[2022-12-26] MEDS: BuPROPion HCL XL 150 MG ER TABLET PO SCH (08:01)
[2022-12-26] MEDS: OMEPRAZOLE 20 MG CAPSULE PO PRN (08:55)
[2022-12-26 18:38] VITALS: RESP 18
[2022-12-26] MEDS: ASPIRIN/ACETAMINOPHEN/CAFFEINE 250-250-65 MG TABLET PO PRN (18:41)
[2022-12-26] MEDS: QUEtiapine FUMARATE 200 MG TABLET PO SCH (20:32)
[2022-12-26 21:10] VITALS: BP 108/68; PULSE 78; RESP 18; TEMP 97.9; O2SAT 98
[2022-12-27] MEDS: BuPROPion HCL XL 150 MG ER TABLET PO SCH (08:21)
[2022-12-27] MEDS: OMEPRAZOLE 20 MG CAPSULE PO PRN (08:33)
[2022-12-27 12:50] VITALS: RESP 17
[2022-12-27 16:21] VITALS: RESP 17
[2022-12-27] MEDS: ASPIRIN/ACETAMINOPHEN/CAFFEINE 250-250-65 MG TABLET PO PRN (16:21)
[2022-12-27 17:21] VITALS: RESP 16
[2022-12-27 20:07] VITALS: BP 104/71; PULSE 81; RESP 18; TEMP 97.7; O2SAT 98
[2022-12-27] MEDS: QUEtiapine FUMARATE 200 MG TABLET PO SCH (20:07)
[2022-12-28] MEDS: IBUPROFEN 600 MG TABLET PO PRN ×2 (00:57→20:56)
[2022-12-28] MEDS: BuPROPion HCL XL 150 MG ER TABLET PO SCH (08:08)
[2022-12-28] MEDS: OMEPRAZOLE 20 MG CAPSULE PO PRN (08:08)
[2022-12-28 10:18] VITALS: RESP 17
[2022-12-28] MEDS: ASPIRIN/ACETAMINOPHEN/CAFFEINE 250-250-65 MG TABLET PO PRN (10:18)
[2022-12-28 11:18] VITALS: RESP 16
[2022-12-28 20:01] VITALS: BP 105/64; PULSE 87; RESP 16; TEMP 97.6; O2SAT 97
[2022-12-28] MEDS: QUEtiapine FUMARATE 200 MG TABLET PO SCH (20:06)
[2022-12-28 20:56] VITALS: RESP 17
[2022-12-28 21:56] VITALS: RESP 16
[2022-12-29] MEDS: ASPIRIN/ACETAMINOPHEN/CAFFEINE 250-250-65 MG TABLET PO PRN ×2 (02:53→17:37)
[2022-12-29 02:56] VITALS: BP 116/75; PULSE 86; RESP 18; TEMP 97.9; O2SAT 99
[2022-12-29 08:35] VITALS: BP 111/67; PULSE 82; RESP 16; TEMP 96; O2SAT 97
[2022-12-29] MEDS: BuPROPion HCL XL 150 MG ER TABLET PO SCH (09:01)
[2022-12-29] MEDS: OMEPRAZOLE 20 MG CAPSULE PO PRN (09:50)
[2022-12-29 20:00] VITALS: BP 129/79; PULSE 83; RESP 18; TEMP 97.9; O2SAT 99
[2022-12-29] MEDS: QUEtiapine FUMARATE 200 MG TABLET PO SCH (20:17)
[2022-12-30] MEDS: BuPROPion HCL XL 150 MG ER TABLET PO SCH (08:05)
[2022-12-30] MEDS: OMEPRAZOLE 20 MG CAPSULE PO PRN (08:12)
[2022-12-30 10:05] VITALS: RESP 17
[2022-12-30] MEDS: ASPIRIN/ACETAMINOPHEN/CAFFEINE 250-250-65 MG TABLET PO PRN ×2 (10:05→18:41)
[2022-12-30 11:05] VITALS: RESP 18
[2022-12-30 18:41] VITALS: RESP 17
[2022-12-30 19:41] VITALS: RESP 18
[2022-12-30] MEDS: QUEtiapine FUMARATE 200 MG TABLET PO SCH (20:32)
[2022-12-30 20:57] VITALS: BP 116/73; PULSE 73; RESP 18; TEMP 97; O2SAT 97
[2022-12-31] MEDS: BuPROPion HCL XL 150 MG ER TABLET PO SCH (08:22)
[2022-12-31] MEDS: OMEPRAZOLE 20 MG CAPSULE PO PRN (09:16)
[2022-12-31 09:49] VITALS: BP 111/66; PULSE 77; RESP 19; TEMP 97.1; O2SAT 95
[2022-12-31] MEDS: ASPIRIN/ACETAMINOPHEN/CAFFEINE 250-250-65 MG TABLET PO PRN (18:04)
[2022-12-31 18:06] VITALS: BP 110/70; PULSE 67; RESP 18; TEMP 97.8; O2SAT 96
[2022-12-31 20:12] VITALS: BP 101/68; PULSE 79; RESP 19; TEMP 97.6; O2SAT 99
[2022-12-31] MEDS: QUEtiapine FUMARATE 200 MG TABLET PO SCH (20:22)
[2023-01-01] MEDS: ASPIRIN/ACETAMINOPHEN/CAFFEINE 250-250-65 MG TABLET PO PRN ×2 (05:57→14:12)
[2023-01-01 06:01] VITALS: BP 101/76; PULSE 75; RESP 16; TEMP 98.1; O2SAT 99
[2023-01-01] MEDS: BuPROPion HCL XL 150 MG ER TABLET PO SCH (08:37)
[2023-01-01] MEDS: OMEPRAZOLE 20 MG CAPSULE PO PRN (09:31)
[2023-01-01 14:12] VITALS: RESP 18
[2023-01-01 15:12] VITALS: RESP 18
[2023-01-01] MEDS: QUEtiapine FUMARATE 200 MG TABLET PO SCH (20:32)
[2023-01-01 21:54] VITALS: BP 115/62; RESP 18; TEMP 97.7
[2023-01-01] MEDS: IBUPROFEN 600 MG TABLET PO PRN (21:58)
[2023-01-01 22:58] VITALS: RESP 18
[2023-01-02 01:47] VITALS: RESP 18
[2023-01-02] MEDS: ASPIRIN/ACETAMINOPHEN/CAFFEINE 250-250-65 MG TABLET PO PRN ×2 (01:49→14:42)
[2023-01-02 08:03] VITALS: BP 87/59; PULSE 85; RESP 16; TEMP 97; O2SAT 99
[2023-01-02] MEDS: BuPROPion HCL XL 150 MG ER TABLET PO SCH (08:22)
[2023-01-02] MEDS: BENZOCAINE/MENTHOL LOZENGE PO PRN (08:54)
[2023-01-02] MEDS: IBUPROFEN 600 MG TABLET PO PRN ×2 (08:54→21:09)
[2023-01-02] MEDS: QUEtiapine FUMARATE 200 MG TABLET PO SCH (21:08)
[2023-01-02 21:22] VITALS: BP 115/68; PULSE 68; RESP 18; TEMP 97.8; O2SAT 100
[2023-01-03 06:10] VITALS: BP 110/65; PULSE 88; RESP 18; TEMP 97; O2SAT 98
[2023-01-03] MEDS: ASPIRIN/ACETAMINOPHEN/CAFFEINE 250-250-65 MG TABLET PO PRN (06:13)
[2023-01-03] MEDS: BENZOCAINE/MENTHOL LOZENGE PO PRN (06:17)
[2023-01-03] MEDS: BuPROPion HCL XL 150 MG ER TABLET PO SCH (08:58)
[2023-01-03] MEDS: OMEPRAZOLE 20 MG CAPSULE PO PRN (10:02)
[2023-01-03 20:37] VITALS: BP 129/77; PULSE 74; RESP 17; TEMP 97.8; O2SAT 94
[2023-01-03] MEDS: QUEtiapine FUMARATE 200 MG TABLET PO SCH (20:38)
[2023-01-03 20:58] VITALS: RESP 18
[2023-01-04 01:20] VITALS: BP 107/65; PULSE 87; RESP 18; TEMP 97.7; O2SAT 98
[2023-01-04] MEDS: ASPIRIN/ACETAMINOPHEN/CAFFEINE 250-250-65 MG TABLET PO PRN ×2 (01:22→18:41)
[2023-01-04] MEDS: BuPROPion HCL XL 150 MG ER TABLET PO SCH (08:11)
[2023-01-04] MEDS: OMEPRAZOLE 20 MG CAPSULE PO PRN (08:11)
[2023-01-04 09:42] VITALS: BP 109/64; PULSE 77; RESP 17; TEMP 97.6; O2SAT 97
[2023-01-04 18:41] VITALS: RESP 17
[2023-01-04 19:41] VITALS: RESP 16
[2023-01-04 20:03] VITALS: BP 111/77; PULSE 79; RESP 16; TEMP 98.3; O2SAT 99
[2023-01-04] MEDS: QUEtiapine FUMARATE 200 MG TABLET PO SCH (20:09)
[2023-01-05] VITALS (8 sets, daily range): BP systolic 110–124; BP diastolic 69–79; PULSE 75–81; RESP 16–18; TEMP 97.5–98.1; O2SAT 98
[2023-01-05] MEDS: IBUPROFEN 600 MG TABLET PO PRN ×3 (00:25→16:55)
[2023-01-05] MEDS: OMEPRAZOLE 20 MG CAPSULE PO PRN (08:09)
[2023-01-05] MEDS: BuPROPion HCL XL 150 MG ER TABLET PO SCH (08:09)
[2023-01-05] MEDS: ASPIRIN/ACETAMINOPHEN/CAFFEINE 250-250-65 MG TABLET PO PRN (10:38)
[2023-01-05] MEDS: BENZOCAINE/MENTHOL LOZENGE PO PRN (15:30)
[2023-01-05] MEDS: QUEtiapine FUMARATE 200 MG TABLET PO SCH (20:01)
[2023-01-06] VITALS (9 sets, daily range): BP systolic 109–117; BP diastolic 63–81; PULSE 75–89; RESP 16–18; TEMP 97.7–98; O2SAT 97–98
[2023-01-06] MEDS: ASPIRIN/ACETAMINOPHEN/CAFFEINE 250-250-65 MG TABLET PO PRN ×2 (02:51→16:53)
[2023-01-06] MEDS: BuPROPion HCL XL 150 MG ER TABLET PO SCH (08:06)
[2023-01-06] MEDS: OMEPRAZOLE 20 MG CAPSULE PO PRN (08:08)
[2023-01-06] MEDS: IBUPROFEN 600 MG TABLET PO PRN ×2 (09:37→20:02)
[2023-01-06] MEDS: BENZOCAINE/MENTHOL LOZENGE PO PRN ×2 (09:37→15:12)
[2023-01-06] MEDS: QUEtiapine FUMARATE 200 MG TABLET PO SCH (20:02)
[2023-01-07] VITALS (8 sets, daily range): BP systolic 101–121; BP diastolic 66–78; PULSE 78–100; RESP 17–18; TEMP 97.5–97.8; O2SAT 97–98
[2023-01-07] MEDS: BENZOCAINE/MENTHOL LOZENGE PO PRN ×2 (02:10→12:40)
[2023-01-07] MEDS: IBUPROFEN 600 MG TABLET PO PRN ×2 (02:11→11:50)
[2023-01-07] MEDS: BuPROPion HCL XL 150 MG ER TABLET PO SCH (08:47)
[2023-01-07] MEDS: ASPIRIN/ACETAMINOPHEN/CAFFEINE 250-250-65 MG TABLET PO PRN ×2 (09:05→20:27)
[2023-01-07] MEDS: OMEPRAZOLE 20 MG CAPSULE PO PRN (09:30)
[2023-01-07] MEDS: QUEtiapine FUMARATE 200 MG TABLET PO SCH (20:31)
[2023-01-08 04:26] VITALS: BP 125/74; PULSE 73; RESP 17; TEMP 97.8
[2023-01-08] MEDS: ASPIRIN/ACETAMINOPHEN/CAFFEINE 250-250-65 MG TABLET PO PRN ×2 (04:30→16:16)
[2023-01-08] MEDS: OMEPRAZOLE 20 MG CAPSULE PO SCH (06:03)
[2023-01-08] MEDS: BuPROPion HCL XL 150 MG ER TABLET PO SCH (08:30)
[2023-01-08 08:46] VITALS: BP 102/60; PULSE 97; RESP 18; TEMP 97.6; O2SAT 98
[2023-01-08 16:16] VITALS: BP 119/74; PULSE 73; RESP 18
[2023-01-08 17:16] VITALS: RESP 18
[2023-01-08 20:15] VITALS: BP 116/67; PULSE 63; RESP 18; TEMP 97.9; O2SAT 99
[2023-01-08] MEDS: QUEtiapine FUMARATE 200 MG TABLET PO SCH (20:34)
[2023-01-09] MEDS: OMEPRAZOLE 20 MG CAPSULE PO SCH (06:08)
[2023-01-09 07:08] VITALS: BP 119/77; PULSE 66; RESP 18; TEMP 97.8
[2023-01-09] MEDS: ASPIRIN/ACETAMINOPHEN/CAFFEINE 250-250-65 MG TABLET PO PRN (07:10)
[2023-01-09] MEDS: BuPROPion HCL XL 150 MG ER TABLET PO SCH (09:19)
== END 2023-01-09 10:05 | disposition home or self-care (01) | DRG 885 ==
LOC: B2X 18:15
PROVIDERS: ADMIT Psychiatry & Neurology Psychiatry; ATTEND Psychiatry & Neurology Psychiatry
DX: F25.9 Schizoaffective disorder, unspecified (principal); R45.851 Suicidal ideations; F32.9 Major depressive disorder, single episode, unspecified; K59.00 Constipation, unspecified; M54.50 Low back pain, unspecified; G43.909 Migraine, unspecified, not intractable, without status migrainosus; D50.9 Iron deficiency anemia, unspecified; F41.9 Anxiety disorder, unspecified; G47.00 Insomnia, unspecified; Z20.822 Contact with and (suspected) exposure to COVID-19; F12.90 Cannabis use, unspecified, uncomplicated; Z79.899 Other long term (current) drug therapy; Z88.0 Allergy status to penicillin
CPT/HCPCS: 80053; 80061; 83036; 84436; 84439; 84443; 85025; 86592

== ENCOUNTER 2023-10-24 17:58 | Inpatient (IN) | payer MEDICARE, MEDICAID ==
[~2023-10-24] VITALS: Ht 162.6 cm; Wt 83.9 kg
[~2023-10-24 17:58] MED LIST changes: -BUPR-49 PO; +BUPR-562 PO; -BUPR450T3 PO
[2023-10-24] MEDS ORDERED: LORazepam 2 MG TABLET PO PRN (22:15)
[2023-10-24] MEDS ORDERED: ZOLPIDEM TARTRATE 10 MG TABLET PO PRN (22:15)
[2023-10-24] MEDS ORDERED: HALOPERIDOL 5 MG TABLET PO PRN (22:15)
[2023-10-25] MEDS ORDERED: HALOPERIDOL 5 MG TABLET PO PRN (00:45)
[2023-10-25] MEDS ORDERED: LORazepam 2 MG TABLET PO PRN (00:45)
[2023-10-25] MEDS ORDERED: ZOLPIDEM TARTRATE 10 MG TABLET PO PRN (00:45)
[2023-10-25 03:34] VITALS: BP 131/78; PULSE 79; RESP 18; TEMP 97.2; O2SAT 99
[2023-10-25 09:38] VITALS: BP 112/58; PULSE 89; RESP 18; TEMP 96.7; O2SAT 98
[2023-10-25] MEDS: BuPROPion HCL XL 150 MG ER TABLET PO SCH (11:04)
[2023-10-25] MEDS: OMEPRAZOLE 20 MG CAPSULE PO SCH ×2 (11:04→17:52)
[2023-10-25] MEDS: ASPIRIN/ACETAMINOPHEN/CAFFEINE 250-250-65 MG TABLET PO PRN (12:32)
[2023-10-25] MEDS ORDERED: LOPERAMIDE HCL 2 MG CAPSULE PO PRN (14:45)
[2023-10-25] MEDS ORDERED: MAG HYDROX/ALUMINUM HYD/SIMETH ES 30 ML SUSPENSION UDCUP PO PRN (14:45)
[2023-10-25] MEDS ORDERED: PETROLATUM,WHITE 28 GM JELLY TP PRN (14:45)
[2023-10-25] MEDS ORDERED: ONDANSETRON 4 MG TABLET PO PRN (14:45)
[2023-10-25] MEDS ORDERED: DOCUSATE SODIUM 100 MG CAPSULE PO PRN (14:45)
[2023-10-25] MEDS ORDERED: ALBUTEROL SULFATE HFA 90 MCG/PUFF 8 GM INHALER IH PRN (14:45)
[2023-10-25] MEDS ORDERED: MAGNESIUM HYDROXIDE SUSPENSION 30 ML UDCUP PO PRN (14:45)
[2023-10-25] MEDS ORDERED: NICOTINE 14 MG/24 HOUR PATCH TD PRN (14:45)
[2023-10-25] MEDS ORDERED: ACETAMINOPHEN 325 MG TABLET PO PRN (14:45)
[2023-10-25] MEDS ORDERED: CloNIDine HCL 0.1 MG TABLET PO PRN (14:45)
[2023-10-25 20:15] VITALS: BP 113/75; PULSE 82; RESP 18; TEMP 97.4; O2SAT 98
[2023-10-25] MEDS: QUEtiapine FUMARATE 200 MG TABLET PO SCH (20:29)
[2023-10-25 22:10] VITALS: BP 110/68; PULSE 84; RESP 18; TEMP 98; O2SAT 98
[2023-10-26 08:17] VITALS: RESP 18
[2023-10-26] MEDS ORDERED: OMEPRAZOLE 20 MG CAPSULE PO SCH (09:00)
[2023-10-26] MEDS: BuPROPion HCL XL 150 MG ER TABLET PO SCH (10:17)
[2023-10-26 13:20] VITALS: RESP 18; O2SAT 97
[2023-10-26 13:21] VITALS: BP 117/70; PULSE 85; RESP 18; TEMP 97.4; O2SAT 97
[2023-10-26 14:20] VITALS: RESP 18; O2SAT 97
[2023-10-26 21:12] VITALS: BP 123/78; PULSE 78; RESP 18; TEMP 98; O2SAT 98
[2023-10-26 22:12] VITALS: RESP 18
[2023-10-27 08:46] VITALS: BP 92/49; PULSE 76; RESP 18; TEMP 97.8; O2SAT 98
[2023-10-27 11:57] VITALS: BP 118/50; PULSE 78; RESP 18; TEMP 98.2; O2SAT 98
[2023-10-27 21:53] VITALS: RESP 18
[2023-10-28 09:45] VITALS: BP 99/57; PULSE 89; RESP 18; O2SAT 98
[2023-10-28 09:55] VITALS: BP 105/57; PULSE 87; RESP 18; TEMP 98; O2SAT 98
[2023-10-28 10:55] VITALS: RESP 17; O2SAT 97
[2023-10-28] MEDS: LACTULOSE 20 GM/30 ML SOLUTION UDCUP PO PRN (17:31)
[2023-10-28 20:48] VITALS: BP 127/76; PULSE 83; RESP 17; TEMP 97.3; O2SAT 97
[2023-10-29 09:30] VITALS: RESP 17
[2023-10-29 10:30] VITALS: RESP 17
[2023-10-29 12:16] VITALS: BP 107/76; PULSE 77; RESP 18; TEMP 96.6; O2SAT 98
[2023-10-29 16:52] VITALS: RESP 18
[2023-10-29 17:52] VITALS: RESP 18
[2023-10-29 21:07] VITALS: BP 140/72; PULSE 70; RESP 16; TEMP 97.1; O2SAT 100
[2023-10-30 08:17] LABS: APPEARANCE,URINE CLEAR (CLEAR); BILIRUBIN,URINE NEGATIVE (NEGATIVE); COLOR,URINE COLORLESS (YELLOW); GLUCOSE, URINE (UA) NEGATIVE (NEGATIVE); KETONES,URINE NEGATIVE (NEGATIVE); LEUKOCYTE ESTERASE ,URINE MODERATE (NEGATIVE); NITRATE,URINE NEGATIVE (NEGATIVE); OCCULT BLOOD,URINE NEGATIVE (NEGATIVE); PROTEIN,URINE NEGATIVE (NEGATIVE); UROBILINOGEN,URINE <=1.0 mg/dL (<=1.0)
[2023-10-30 08:18] VITALS: RESP 18; O2SAT 96
[2023-10-30 08:24] LABS: AMPHET/METH SCREEN,URINE NEGATIVE (NEGATIVE); BARBITURATE SCREEN, URINE NEGATIVE (NEGATIVE); BENZODIAZEPINES SCREEN,URINE NEGATIVE (NEGATIVE); CANNABINOID SCREEN,URINE NEGATIVE (NEGATIVE); COCAINE SCREEN,URINE NEGATIVE (NEGATIVE); METHADONE SCREEN, URINE NEGATIVE (NEGATIVE); OPIATE SCREEN,URINE NEGATIVE (NEGATIVE); PHENCYCLIDINE SCREEN,URINE NEGATIVE (NEGATIVE)
[2023-10-30 08:27] LABS: ALCOHOL, URINE DRUG SCREEN NEGATIVE (NEGATIVE)
[2023-10-30 08:34] LABS: BACTERIA,URINE None Seen /HPF (None Seen); RBC,URINE None Seen /HPF (0-2); SQUAMOUS EPITHELIAL CELL,UR Moderate /LPF (None Seen)
[2023-10-30 08:52] VITALS: BP 102/63; PULSE 74; RESP 18; TEMP 96.7; O2SAT 96
[2023-10-30 09:18] VITALS: RESP 18; O2SAT 96
[2023-10-30 20:40] VITALS: BP 143/64; PULSE 69; RESP 16; TEMP 97; O2SAT 98
[2023-10-31 08:21] VITALS: BP 113/74; PULSE 91; RESP 17; TEMP 97.6; O2SAT 97
[2023-10-31 09:57] VITALS: RESP 17; O2SAT 97
[2023-10-31 10:57] VITALS: RESP 17; O2SAT 97
[2023-10-31 20:38] VITALS: BP 105/70; PULSE 75; RESP 19; TEMP 98; O2SAT 100
[2023-11-01 08:25] VITALS: BP 101/61; PULSE 80; RESP 16; TEMP 97.9; O2SAT 98
[2023-11-01 17:26] VITALS: RESP 16
[2023-11-01 18:19] VITALS: RESP 16
[2023-11-01 20:38] VITALS: BP 122/84; PULSE 88; RESP 18; TEMP 96.8; O2SAT 99
[2023-11-02 09:43] VITALS: RESP 18; O2SAT 99
[2023-11-02 09:51] VITALS: BP 104/68; PULSE 83; RESP 17; TEMP 98.4; O2SAT 100
[2023-11-02 10:43] VITALS: RESP 17; O2SAT 100
[2023-11-02 16:10] VITALS: RESP 18; O2SAT 100
[2023-11-02 17:10] VITALS: RESP 17; O2SAT 100
[2023-11-02 20:30] VITALS: BP 113/66; PULSE 68; RESP 20; TEMP 98.2; O2SAT 100
[2023-11-03 08:12] VITALS: BP 105/61; PULSE 91; RESP 16; TEMP 98.6; O2SAT 98
[2023-11-03 08:48] VITALS: RESP 17; O2SAT 98
[2023-11-03 09:48] VITALS: RESP 17; O2SAT 98
[2023-11-03] MEDS: CAPSAICIN 0.025% 60 GM CREAM TP PRN (16:04)
[2023-11-03 16:32] VITALS: BP 130/59; RESP 17; O2SAT 98
[2023-11-03] MEDS: ASPIRIN/ACETAMINOPHEN/CAFFEINE 250-250-65 MG TABLET PO PRN (16:32)
[2023-11-03 17:32] VITALS: RESP 17; O2SAT 98
[2023-11-03 20:58] VITALS: BP 130/59; PULSE 83; RESP 17; TEMP 98.5; O2SAT 98
[2023-11-04 04:05] VITALS: BP 128/64; PULSE 88; RESP 18; TEMP 98.4; O2SAT 97
[2023-11-04 08:27] VITALS: BP 101/67; PULSE 84; RESP 18; TEMP 96.3; O2SAT 100
[2023-11-04 15:36] VITALS: RESP 18
[2023-11-04 16:36] VITALS: RESP 17
[2023-11-04 20:27] VITALS: BP 113/58; PULSE 90; RESP 17; TEMP 97; O2SAT 98
[2023-11-05] MEDS: GuaiFENesin/D-METHORPHAN [SUGAR-FREE] 200-20MG/10 ML SYRUP UDCUP PO PRN (02:25)
[2023-11-05] MEDS: IBUPROFEN 400 MG TABLET PO PRN (02:26)
[2023-11-05 08:45] VITALS: BP 122/65; PULSE 84; RESP 16; TEMP 97.3; O2SAT 98
[2023-11-05 11:04] VITALS: RESP 17
[2023-11-05 12:04] VITALS: RESP 17
[2023-11-05 20:41] VITALS: BP 128/78; PULSE 74; RESP 16; TEMP 97.2; O2SAT 100
[2023-11-06 08:45] VITALS: BP 100/73; PULSE 80; RESP 17; TEMP 98; O2SAT 98
[2023-11-06 10:11] VITALS: RESP 17; O2SAT 98
[2023-11-06 11:11] VITALS: RESP 17; O2SAT 98
[2023-11-06 16:37] VITALS: RESP 17; O2SAT 98
[2023-11-06 17:37] VITALS: RESP 17; O2SAT 98
[2023-11-06 20:26] VITALS: BP 132/89; PULSE 71; RESP 16; TEMP 96.5; O2SAT 97
[2023-11-07 09:21] VITALS: BP 92/68; PULSE 100; RESP 14; TEMP 96.7; O2SAT 97
[2023-11-07 16:00] VITALS: BP 113/60; PULSE 75; RESP 17; TEMP 97; O2SAT 99
[2023-11-07 17:00] VITALS: RESP 18; O2SAT 98
[2023-11-07 20:11] VITALS: BP 114/59; PULSE 75; RESP 18; TEMP 97; O2SAT 99
[2023-11-07 20:43] VITALS: BP 128/76; PULSE 83; RESP 18; TEMP 97.1; O2SAT 99
[2023-11-07 21:43] VITALS: RESP 17; O2SAT 98
[2023-11-08 09:03] VITALS: BP 108/79; PULSE 80; RESP 17; TEMP 97.1; O2SAT 99
[2023-11-08 20:08] VITALS: BP 109/70; PULSE 76; RESP 16; TEMP 97.3; O2SAT 98
[2023-11-09 11:03] VITALS: BP 103/67; PULSE 80; RESP 17; TEMP 97.5; O2SAT 99
[2023-11-09 12:03] VITALS: RESP 17; O2SAT 99
[2023-11-09 20:37] VITALS: BP 126/77; PULSE 74; RESP 16; TEMP 96.4; O2SAT 98
[2023-11-10] VITALS (7 sets, daily range): BP systolic 104–119; BP diastolic 65–79; PULSE 60–83; RESP 17–18; TEMP 97.2–98; O2SAT 100
[2023-11-11 08:41] VITALS: BP 102/68; PULSE 93; RESP 17; TEMP 97.4; O2SAT 96
[2023-11-11 08:51] VITALS: RESP 17; O2SAT 96
[2023-11-11] MEDS ORDERED: BUPR-514 PO (09:45)
[2023-11-11] MEDS ORDERED: QUET200T PO (09:45)
[2023-11-11] MEDS ORDERED: OMEP20 PO (09:48)
[2023-11-11 09:51] VITALS: RESP 17; O2SAT 96
== END 2023-11-11 10:10 | disposition home or self-care (01) | DRG 885 ==
LOC: B2S 10-25 00:36 → UNDOADMIN 10-25 00:36
PROVIDERS: ADMIT Psychiatry & Neurology Psychiatry; ATTEND Psychiatry & Neurology Psychiatry
DX: F33.3 Major depressive disorder, recurrent, severe with psychotic symptoms (principal); R45.851 Suicidal ideations; D64.9 Anemia, unspecified; E66.9 Obesity, unspecified; G43.909 Migraine, unspecified, not intractable, without status migrainosus; K59.00 Constipation, unspecified; Z88.0 Allergy status to penicillin; Z68.31 Body mass index [BMI] 31.0-31.9, adult
CPT/HCPCS: 80307; 81001; 87081

== ENCOUNTER 2023-11-19 18:57 | Inpatient (IN) | payer MEDICARE, MEDICAID ==
[~2023-11-19] VITALS: Ht 162.6 cm; Wt 83.9 kg
[~2023-11-19 18:57] MED LIST changes: +BUPR-514 PO; -BUPR-562 PO; +OMEP20 PO; +QUET200T PO; -QUET200T30 PO
[2023-11-19] MEDS ORDERED: LORazepam 2 MG TABLET PO PRN (19:45)
[2023-11-19] MEDS ORDERED: HALOPERIDOL 5 MG TABLET PO PRN (19:45)
[2023-11-19 19:46] LABS: GLUCOMETER DEV NAME(LOC) POC.BV; POC SARS-COV2 AG, FIA NEGATIVE (NEGATIVE)
[2023-11-19 20:07] VITALS: BP 109/49; PULSE 79; RESP 17; TEMP 98.5; O2SAT 97
[2023-11-19] MEDS: ZOLPIDEM TARTRATE 10 MG TABLET PO PRN (21:00)
[2023-11-19] MEDS: QUEtiapine FUMARATE 200 MG TABLET PO SCH (21:35)
[2023-11-20] MEDS: ASPIRIN/ACETAMINOPHEN/CAFFEINE 250-250-65 MG TABLET PO PRN (06:51)
[2023-11-20 06:58] VITALS: BP 111/60; PULSE 88; RESP 18; TEMP 98.2; O2SAT 98
[2023-11-20 07:58] VITALS: RESP 17; O2SAT 98
[2023-11-20 08:29] LABS: BASOPHILS % (AUTO) 0.8 % (0.0-2.0); EOSINOPHILS % (AUTO) 0 % (1.0-6.0); HEMATOCRIT 29.8 % (36-46); HEMOGLOBIN 9.2 g/dL (12.0-16.0); LYMPHOCYTES # (AUTO) 1.2 K/uL (1.0-4.8); LYMPHOCYTES % (AUTO) 30.8 % (22.0-44.0); MEAN CORPUSCULAR HGB CONC 30.7 G/dL (31.0-37.0); MEAN CORPUSCULAR VOLUME 72 fL (80-100); MONOCYTES # (AUTO) 0.5 K/uL (0.1-1.0); MONOCYTES % (AUTO) 12.9 % (2.0-9.0); NEUTROPHILS # (AUTO) 2.2 K/uL (1.8-7.7); NEUTROPHILS % (AUTO) 55.5 % (40.0-70.0); PLATELET COUNT (AUTO) 228 K/uL (150-450); RED BLOOD CELL COUNT(AUTO) 4.17 MIL/uL (4.00-5.20); RED CELL DISTRIBUTION WIDTH 23.8 % (11.5-14.5)
[2023-11-20 09:00] LABS: ALANINE AMINOTRANSFERASE 16 U/L (12-78); ALBUMIN 3.4 g/dL (3.4-5.0); ALKALINE PHOSPHATASE 95 U/L (46-116); ANION GAP 12 mmol/L (8-16); ASPARTATE AMINOTRANSFERASE 15 U/L (15-37); BILIRUBIN,TOTAL 0.5 mg/dL (0.1-1.0); CALCIUM, TOTAL 8.9 mg/dL (8.8-10.5); CARBON DIOXIDE 25 mmol/L (22-29); CHLORIDE 105 mmol/L (98-107); CHOL/HDL RATIO 3.7 (3.9-5.7); CHOLESTEROL 218 mg/dL (131-200); CREATININE 0.92 mg/dL (0.60-1.30); FREE T4 (FREE THYROXINE) 0.96 ng/dL (0.76-1.46); GLOMERULAR FILTR. RATE CALC > 60 mL/min (>60); GLUCOSE,RANDOM 85 mg/dL (70-110); HDL CHOLESTEROL 59 mg/dL (40-60); LDL CHOL (CALC.) 146 mg/dL (0-130); SODIUM SERUM 142 mmol/L (136-145); THYROID STIMULATING HORMONE 1.76 uIU/mL (0.36-3.74); TOTAL PROTEIN, SERUM 6.7 g/dL (6.4-8.2); TRIGLYCERIDES 65 mg/dL (15-150); UREA NITROGEN, BLOOD 27 mg/dL (7-18)
[2023-11-20 09:21] LABS: RBC MORPHOLOGY COMMENT ABNORMAL RBC MORPH
[2023-11-20] MEDS: OMEPRAZOLE 20 MG CAPSULE PO SCH (17:13)
[2023-11-20 18:41] VITALS: BP 114/66; PULSE 84; RESP 17; TEMP 97.6; O2SAT 98
[2023-11-20 20:04] VITALS: BP 98/67; PULSE 71; RESP 18; TEMP 97.1; O2SAT 99
[2023-11-20] MEDS ORDERED: PETROLATUM,WHITE 28 GM JELLY TP PRN (20:45)
[2023-11-20] MEDS ORDERED: MAGNESIUM HYDROXIDE SUSPENSION 30 ML UDCUP PO PRN (20:45)
[2023-11-20] MEDS ORDERED: DOCUSATE SODIUM 100 MG CAPSULE PO PRN (20:45)
[2023-11-20] MEDS ORDERED: BACITRACIN 28 GM OINTMENT TP PRN (20:45)
[2023-11-20] MEDS ORDERED: LOPERAMIDE HCL 2 MG CAPSULE PO PRN (20:45)
[2023-11-20] MEDS ORDERED: CloNIDine HCL 0.1 MG TABLET PO PRN (20:45)
[2023-11-20] MEDS ORDERED: ONDANSETRON 4 MG TABLET PO PRN (20:45)
[2023-11-20] MEDS ORDERED: OMEPRAZOLE 20 MG CAPSULE PO PRN (20:45)
[2023-11-20] MEDS ORDERED: ACETAMINOPHEN 325 MG TABLET PO PRN (20:45)
[2023-11-20] MEDS ORDERED: ALBUTEROL SULFATE HFA 90 MCG/PUFF 8 GM INHALER IH PRN (20:45)
[2023-11-20] MEDS ORDERED: MAG HYDROX/ALUMINUM HYD/SIMETH ES 30 ML SUSPENSION UDCUP PO PRN (20:45)
[2023-11-20] MEDS ORDERED: MELATONIN 5 MG TABLET PO SCH (21:00)
[2023-11-21] MEDS: BuPROPion HCL XL 150 MG ER TABLET PO SCH (09:23)
[2023-11-21 09:28] VITALS: BP 96/66; PULSE 81; RESP 18; TEMP 97.7; O2SAT 97
[2023-11-21 09:31] VITALS: RESP 18; O2SAT 97
[2023-11-21 10:31] VITALS: RESP 17; O2SAT 97
[2023-11-21 20:31] VITALS: BP 102/68; PULSE 80; RESP 16; TEMP 98.2; O2SAT 99
[2023-11-22 08:08] VITALS: BP 98/68; PULSE 82; RESP 17; TEMP 97.1; O2SAT 97
[2023-11-22 20:00] VITALS: BP 135/77; RESP 16; TEMP 97.5; O2SAT 100
[2023-11-23 08:16] VITALS: RESP 18
[2023-11-23 09:44] VITALS: BP 121/68; PULSE 75; RESP 18; TEMP 98; O2SAT 100
[2023-11-23 10:44] VITALS: RESP 17; O2SAT 100
[2023-11-23 18:25] VITALS: RESP 18; O2SAT 100
[2023-11-23 19:25] VITALS: RESP 17; O2SAT 100
[2023-11-23 20:33] VITALS: BP 113/73; PULSE 70; RESP 16; TEMP 96.9; O2SAT 100
[2023-11-24 08:54] VITALS: RESP 17
[2023-11-24 12:28] VITALS: RESP 17
[2023-11-24] MEDS: LACTULOSE 20 GM/30 ML SOLUTION UDCUP PO PRN (12:37)
[2023-11-24 13:28] VITALS: RESP 17
[2023-11-24 21:24] VITALS: BP 110/83; PULSE 74; RESP 18; TEMP 97.4
[2023-11-25] MEDS: BENZOCAINE/MENTHOL LOZENGE PO PRN (06:33)
[2023-11-25 08:38] VITALS: RESP 18
[2023-11-25] MEDS: IBUPROFEN 600 MG TABLET PO PRN (08:38)
[2023-11-25 09:38] VITALS: RESP 18
[2023-11-25 12:39] VITALS: BP 98/68; PULSE 69; RESP 18; TEMP 98.3; O2SAT 99
[2023-11-25 13:29] VITALS: RESP 18
[2023-11-25 20:00] VITALS: BP 116/81; PULSE 65; RESP 17; TEMP 96.4; O2SAT 97
[2023-11-26 09:35] VITALS: BP 98/75; PULSE 86; RESP 16; TEMP 98.1; O2SAT 97
[2023-11-26 09:39] VITALS: RESP 16; O2SAT 97
[2023-11-26 10:39] VITALS: RESP 16; O2SAT 97
[2023-11-26 21:32] VITALS: BP 106/64; PULSE 82; RESP 17; TEMP 96.6; O2SAT 98
[2023-11-27 08:00] VITALS: BP 94/74; PULSE 96; RESP 17; TEMP 97.9; O2SAT 100
[2023-11-27 12:05] VITALS: RESP 18; O2SAT 98
[2023-11-27 19:31] VITALS: BP 112/78; PULSE 70; RESP 18; TEMP 96.9; O2SAT 98
[2023-11-27 20:23] VITALS: BP 112/78; PULSE 69; RESP 18; TEMP 96; O2SAT 98
[2023-11-27 20:31] VITALS: RESP 18; O2SAT 99
[2023-11-28 08:00] VITALS: BP 121/80; PULSE 82; RESP 18; TEMP 97.1; O2SAT 98
[2023-11-28 20:35] VITALS: BP 125/62; PULSE 77; RESP 17; TEMP 97.2; O2SAT 100
[2023-11-29 09:54] VITALS: BP 101/74; PULSE 85; RESP 16; TEMP 97.4; O2SAT 98
[2023-11-29 10:52] VITALS: RESP 17; O2SAT 98
[2023-11-29 11:52] VITALS: RESP 17; O2SAT 98
[2023-11-29 18:27] VITALS: RESP 18; O2SAT 98
[2023-11-29 19:27] VITALS: RESP 17; O2SAT 98
[2023-11-29 20:41] VITALS: BP 119/69; PULSE 74; RESP 16; TEMP 97.7; O2SAT 100
[2023-11-30 08:31] VITALS: BP 96/65; PULSE 92; RESP 18; TEMP 98; O2SAT 99
[2023-11-30 09:41] VITALS: RESP 18; O2SAT 99
[2023-11-30 10:41] VITALS: RESP 17; O2SAT 99
[2023-11-30 16:20] VITALS: RESP 18; O2SAT 99
[2023-11-30 17:20] VITALS: RESP 17; O2SAT 99
[2023-11-30 20:08] VITALS: BP 124/74; PULSE 80; RESP 17; TEMP 97.4; O2SAT 99
[2023-12-01] VITALS (9 sets, daily range): BP systolic 100–113; BP diastolic 66–77; PULSE 63–77; RESP 16–47; TEMP 97–97.3; O2SAT 97–98
[2023-12-02 00:10] VITALS: RESP 18
[2023-12-02 08:41] VITALS: RESP 18
[2023-12-02 09:41] VITALS: RESP 18
[2023-12-02 12:06] VITALS: BP 122/78; PULSE 83; RESP 18; TEMP 97.6; O2SAT 100
[2023-12-02 14:48] VITALS: RESP 18
== END 2023-12-02 16:25 | disposition home or self-care (01) | DRG 885 ==
LOC: B2S 19:33
PROVIDERS: ADMIT Psychiatry & Neurology Psychiatry; ATTEND Psychiatry & Neurology Psychiatry
DX: F31.9 Bipolar disorder, unspecified (principal); R45.851 Suicidal ideations; Z59.00 Homelessness unspecified; G43.909 Migraine, unspecified, not intractable, without status migrainosus; D50.9 Iron deficiency anemia, unspecified; K59.00 Constipation, unspecified; M54.50 Low back pain, unspecified; F41.9 Anxiety disorder, unspecified; G47.00 Insomnia, unspecified; Z20.822 Contact with and (suspected) exposure to COVID-19; F12.90 Cannabis use, unspecified, uncomplicated
CPT/HCPCS: 80053; 80061; 84436; 84439; 84443; 85025; 86592; 87081

== ENCOUNTER 2024-03-22 09:41 | Inpatient (IN) | payer MEDICARE, MEDICAID ==
[~2024-03-22] VITALS: Ht 162.6 cm; Wt 85.0 kg
[2024-03-22 09:40] VITALS: BP 136/84; PULSE 75; RESP 18; TEMP 97.2; O2SAT 97
[2024-03-22] MEDS ORDERED: LORazepam 2 MG TABLET PO PRN (13:00)
[2024-03-22] MEDS ORDERED: HALOPERIDOL 5 MG TABLET PO PRN (13:00)
[2024-03-22 13:21] LABS: GLUCOMETER DEV NAME(LOC) POC.BV; POC SARS-COV2 AG, FIA NEGATIVE (NEGATIVE)
[2024-03-22 14:07] VITALS: BP 119/71; PULSE 70; RESP 18; TEMP 98; O2SAT 99
[2024-03-22] MEDS: QUEtiapine FUMARATE 300 MG TABLET PO SCH (21:53)
[2024-03-22 22:18] VITALS: BP 126/95; PULSE 80; RESP 18; TEMP 97
[2024-03-23] MEDS: ASPIRIN/ACETAMINOPHEN/CAFFEINE 250-250-65 MG TABLET PO PRN (06:20)
[2024-03-23 08:52] LABS: BASOPHILS % (AUTO) 0.7 % (0.0-2.0); EOSINOPHILS % (AUTO) 0.1 % (1.0-6.0); HEMATOCRIT 34.4 % (36-46); HEMOGLOBIN 11.2 g/dL (12.0-16.0); LYMPHOCYTES # (AUTO) 1.1 K/uL (1.0-4.8); LYMPHOCYTES % (AUTO) 27.8 % (22.0-44.0); MEAN CORPUSCULAR HEMOGLOBIN 26.3 pg (26.0-34.0); MEAN CORPUSCULAR HGB CONC 32.7 G/dL (31.0-37.0); MEAN CORPUSCULAR VOLUME 81 fL (80-100); MONOCYTES # (AUTO) 0.5 K/uL (0.1-1.0); MONOCYTES % (AUTO) 12.1 % (2.0-9.0); NEUTROPHILS # (AUTO) 2.3 K/uL (1.8-7.7); NEUTROPHILS % (AUTO) 59.3 % (40.0-70.0); PLATELET COUNT (AUTO) 208 K/uL (150-450); RED BLOOD CELL COUNT(AUTO) 4.28 MIL/uL (4.00-5.20); RED CELL DISTRIBUTION WIDTH 23.8 % (11.5-14.5); WHITE BLOOD COUNT (AUTO) 3.9 K/uL (4.5-11.0)
[2024-03-23 09:02] VITALS: BP 98/69; PULSE 76; RESP 18; TEMP 97.6; O2SAT 98
[2024-03-23 09:09] LABS: HEMOGLOBIN A1C 5.4 % (3.8-5.6)
[2024-03-23 09:16] LABS: ALBUMIN 3.2 g/dL (3.4-5.0); BILIRUBIN,TOTAL 0.5 mg/dL (0.1-1.0); CHOL/HDL RATIO 3.3 (3.9-5.7); CREATININE 1.05 mg/dL (0.60-1.30); FREE T4 (FREE THYROXINE) 0.89 ng/dL (0.76-1.46); POTASSIUM 4.3 mmol/L (3.5-5.1); TOTAL PROTEIN, SERUM 6.4 g/dL (6.4-8.2)
[2024-03-23 09:46] LABS: RBC MORPHOLOGY COMMENT ABNORMAL RBC MORPH
[2024-03-23] MEDS: OMEPRAZOLE 20 MG CAPSULE PO SCH (10:28)
[2024-03-23] MEDS: BuPROPion HCL XL 150 MG ER TABLET PO SCH (10:28)
[2024-03-23 16:11] VITALS: RESP 18
[2024-03-23 17:11] VITALS: RESP 18
[2024-03-23 20:24] VITALS: BP 121/88; PULSE 94; RESP 17; TEMP 96.9; O2SAT 97
[2024-03-24 10:25] VITALS: RESP 18; O2SAT 96
[2024-03-24 12:06] VITALS: BP 111/74; PULSE 88; RESP 18; TEMP 97.2; O2SAT 98
[2024-03-24 16:05] VITALS: BP 117/81; PULSE 83; RESP 18
[2024-03-24 20:20] VITALS: BP 122/88; PULSE 67; RESP 19; TEMP 98; O2SAT 100
[2024-03-25 08:40] VITALS: BP 110/73; PULSE 91; RESP 18; TEMP 96.7; O2SAT 99
[2024-03-25 09:02] VITALS: RESP 18; O2SAT 97
[2024-03-25 17:40] VITALS: O2SAT 18
[2024-03-25 19:03] VITALS: O2SAT 18
[2024-03-25 21:40] VITALS: O2SAT 18
[2024-03-26 08:30] VITALS: BP 103/65; PULSE 85; RESP 17; TEMP 97.6; O2SAT 98
[2024-03-26 16:50] VITALS: RESP 18
[2024-03-26 17:50] VITALS: RESP 18
[2024-03-26] MEDS: ZOLPIDEM TARTRATE 10 MG TABLET PO PRN (21:59)
[2024-03-27 08:54] VITALS: BP 102/68; PULSE 72; RESP 16; TEMP 98; O2SAT 98
[2024-03-27] MEDS: INFLUENZA VIRUS VACCINE TVS (6MO+) 2024-25/PF 45 MCG/0.5 ML SYRINGE IM. ONE (09:11)
[2024-03-27 09:54] VITALS: RESP 16
[2024-03-27 16:23] VITALS: BP 121/67; PULSE 75; RESP 16; O2SAT 100
[2024-03-27 17:23] VITALS: RESP 16
[2024-03-27] MEDS: QUEtiapine FUMARATE 200 MG TABLET PO SCH (20:06)
[2024-03-27 20:39] VITALS: BP 116/76; PULSE 77; RESP 18; TEMP 98.2; O2SAT 98
[2024-03-28] VITALS (7 sets, daily range): BP systolic 108–118; BP diastolic 71–76; PULSE 75–82; RESP 16–18; TEMP 97.6–98.3; O2SAT 97
[2024-03-29 09:02] VITALS: BP 119/72; PULSE 90; RESP 16; TEMP 98; O2SAT 98
[2024-03-29 15:28] VITALS: RESP 17
[2024-03-29 16:28] VITALS: RESP 16
[2024-03-29] MEDS: LACTULOSE 20 GM/30 ML SOLUTION UDCUP PO SCH (16:38)
[2024-03-29 20:20] VITALS: BP 123/70; PULSE 67; RESP 17; TEMP 97.2; O2SAT 97
[2024-03-30 10:23] VITALS: BP 104/68; PULSE 71; RESP 18; TEMP 97.8; O2SAT 96
[2024-03-30 12:28] VITALS: RESP 18; O2SAT 99
[2024-03-30 13:28] VITALS: RESP 16; O2SAT 99
[2024-03-30 18:59] VITALS: RESP 17; O2SAT 99
[2024-03-30 20:00] VITALS: RESP 18
[2024-03-30 20:35] VITALS: BP 122/61; PULSE 71; RESP 16; TEMP 97.8; O2SAT 97
[2024-03-31 15:38] VITALS: BP 129/78; PULSE 89; RESP 18
[2024-03-31 16:39] VITALS: RESP 18
[2024-03-31 20:45] VITALS: BP 120/78; PULSE 63; RESP 18; TEMP 97.9; O2SAT 96
[2024-04-01 08:26] VITALS: RESP 18; O2SAT 98
[2024-04-01 09:26] VITALS: RESP 17; O2SAT 98
[2024-04-01 14:48] VITALS: RESP 18; O2SAT 97
[2024-04-01 15:46] VITALS: RESP 18; O2SAT 98
[2024-04-01 20:29] VITALS: BP 120/80; PULSE 68; RESP 18; TEMP 97.1; O2SAT 98
[2024-04-01 21:37] VITALS: RESP 18
[2024-04-02] VITALS (9 sets, daily range): BP systolic 115–130; BP diastolic 65–87; PULSE 63–90; RESP 15–17; TEMP 96.8; O2SAT 96
[2024-04-02] MEDS ORDERED: NICOTINE 14 MG/24 HOUR PATCH TD PRN (12:00)
[2024-04-02] MEDS ORDERED: MAG HYDROX/ALUMINUM HYD/SIMETH ES 30 ML SUSPENSION UDCUP PO PRN (12:00)
[2024-04-02] MEDS ORDERED: ACETAMINOPHEN 325 MG TABLET PO PRN (12:00)
[2024-04-02] MEDS ORDERED: DOCUSATE SODIUM 100 MG CAPSULE PO PRN (12:00)
[2024-04-02] MEDS ORDERED: ONDANSETRON 4 MG TABLET PO PRN (12:00)
[2024-04-02] MEDS ORDERED: MAGNESIUM HYDROXIDE SUSPENSION 30 ML UDCUP PO PRN (12:00)
[2024-04-02] MEDS ORDERED: PETROLATUM,WHITE 28 GM JELLY TP PRN (12:00)
[2024-04-02] MEDS ORDERED: ALBUTEROL SULFATE HFA 90 MCG/PUFF 8 GM INHALER IH PRN (12:00)
[2024-04-02] MEDS ORDERED: LOPERAMIDE HCL 2 MG CAPSULE PO PRN (12:00)
[2024-04-02] MEDS ORDERED: CloNIDine HCL 0.1 MG TABLET PO PRN (12:00)
[2024-04-02] MEDS: IBUPROFEN 400 MG TABLET PO PRN (13:02)
[2024-04-03] VITALS (9 sets, daily range): BP systolic 108–115; BP diastolic 62–74; PULSE 60–75; RESP 16–19; TEMP 97.4–98; O2SAT 96–100
[2024-04-03] MEDS: DICLOFENAC SODIUM 1% 100 GM GEL [2GM] TP PRN (21:47)
[2024-04-04] VITALS (7 sets, daily range): BP systolic 103; BP diastolic 73; PULSE 93; RESP 18
[2024-04-04] MEDS: ASPIRIN/ACETAMINOPHEN/CAFFEINE 250-250-65 MG TABLET PO PRN (04:14)
[2024-04-04] MEDS ORDERED: LORazepam 2 MG/ML VIAL ONE (08:36)
[2024-04-04] MEDS ORDERED: DiphenhydrAMINE HCL 50 MG/ML VIAL ONE (08:36)
[2024-04-04] MEDS ORDERED: HALOPERIDOL LACTATE 5 MG/ML VIAL ONE (08:37)
[2024-04-04] MEDS: LORazepam 2 MG/ML VIAL IM ONE (08:57)
[2024-04-04] MEDS: HALOPERIDOL LACTATE 5 MG/ML VIAL IM ONE (08:57)
[2024-04-04] MEDS: DiphenhydrAMINE HCL 50 MG/ML VIAL IM ONE (08:57)
[2024-04-05] VITALS (9 sets, daily range): BP systolic 104–111; BP diastolic 66–73; PULSE 89–90; RESP 16–18; TEMP 97.9; O2SAT 95–98
[2024-04-05] MEDS: IBUPROFEN 400 MG TABLET PO PRN (10:08)
[2024-04-05] MEDS ORDERED: LACTULOSE 20 GM/30 ML SOLUTION UDCUP PO PRN (15:45)
[2024-04-06 08:17] VITALS: BP 114/64; PULSE 93; RESP 18; TEMP 98; O2SAT 97
[2024-04-06 09:21] VITALS: RESP 18
[2024-04-06 12:09] VITALS: RESP 18
[2024-04-06 14:26] VITALS: RESP 18
[2024-04-06 20:26] VITALS: RESP 18
[2024-04-06 20:28] VITALS: BP 117/81; PULSE 99; RESP 18; TEMP 98
[2024-04-07 07:40] VITALS: BP 120/72; RESP 20; O2SAT 96
[2024-04-07 08:31] VITALS: BP 114/64; PULSE 70; RESP 17; TEMP 97.7; O2SAT 98
[2024-04-07 08:50] VITALS: BP 114/64; RESP 18
[2024-04-07 14:50] VITALS: BP 120/75; RESP 19
[2024-04-07 20:54] VITALS: BP 103/71; PULSE 86; RESP 16; TEMP 98; O2SAT 100
[2024-04-07 21:42] VITALS: RESP 17
[2024-04-08] VITALS (9 sets, daily range): BP systolic 109–128; BP diastolic 73–78; PULSE 72–92; RESP 17–19; TEMP 97.7; O2SAT 98–100
[2024-04-08 09:49] LABS: APPEARANCE,URINE CLEAR (CLEAR); BILIRUBIN,URINE NEGATIVE (NEGATIVE); COLOR,URINE COLORLESS (YELLOW); GLUCOSE, URINE (UA) NEGATIVE (NEGATIVE); KETONES,URINE NEGATIVE (NEGATIVE); LEUKOCYTE ESTERASE ,URINE NEGATIVE (NEGATIVE); NITRATE,URINE NEGATIVE (NEGATIVE); OCCULT BLOOD,URINE NEGATIVE (NEGATIVE); PH,URINE 6.5 (5.0-8.0); PH,URINE DRUG SCREEN 6.5 (5.0-8.0); PROTEIN,URINE NEGATIVE (NEGATIVE); SPECIFIC GRAVITIY, URINE 1.007 (1.003-1.030); UROBILINOGEN,URINE <=1.0 mg/dL (<=1.0)
[2024-04-08 10:15] LABS: AMPHET/METH SCREEN,URINE NEGATIVE (NEGATIVE); BARBITURATE SCREEN, URINE NEGATIVE (NEGATIVE); BENZODIAZEPINES SCREEN,URINE NEGATIVE (NEGATIVE); CANNABINOID SCREEN,URINE NEGATIVE (NEGATIVE); COCAINE SCREEN,URINE NEGATIVE (NEGATIVE); METHADONE SCREEN, URINE NEGATIVE (NEGATIVE); OPIATE SCREEN,URINE NEGATIVE (NEGATIVE); PHENCYCLIDINE SCREEN,URINE NEGATIVE (NEGATIVE)
[2024-04-08 10:17] LABS: ALCOHOL, URINE DRUG SCREEN NEGATIVE (NEGATIVE)
[2024-04-08] MEDS: BENZOCAINE/MENTHOL LOZENGE PO PRN (12:40)
[2024-04-08] MEDS: GuaiFENesin/D-METHORPHAN [SUGAR-FREE] 200-20MG/10 ML SYRUP UDCUP PO PRN (17:13)
[2024-04-09] VITALS (10 sets, daily range): BP systolic 109–118; BP diastolic 74–78; PULSE 78–82; RESP 16–18; TEMP 97.4–97.6; O2SAT 98
[2024-04-10 06:43] VITALS: BP 126/76; PULSE 82; RESP 18; O2SAT 97
== END 2024-04-10 10:46 | disposition left against medical advice (07) | DRG 885 ==
LOC: B2X 11:10
PROVIDERS: ADMIT Psychiatry & Neurology Child & Adolescent Psychiatry; ATTEND Psychiatry & Neurology Child & Adolescent Psychiatry
PROC: GZ56ZZZ Individual Psychotherapy, Supportive (ICD-10-PCS; principal; 2024-03-23)
DX: F31.4 Bipolar disorder, current episode depressed, severe, without psychotic features (principal); K21.9 Gastro-esophageal reflux disease without esophagitis; G43.909 Migraine, unspecified, not intractable, without status migrainosus; Z20.822 Contact with and (suspected) exposure to COVID-19; D64.9 Anemia, unspecified; K59.00 Constipation, unspecified; G89.29 Other chronic pain; M54.9 Dorsalgia, unspecified; Z79.899 Other long term (current) drug therapy; Z88.0 Allergy status to penicillin; I10 Essential (primary) hypertension; R79.89 Other specified abnormal findings of blood chemistry
CPT/HCPCS: 80053; 80061; 80307; 81003; 83036; 84439; 84443; 85025; 87081; J1200; J1630; J2060

== ENCOUNTER 2024-09-17 10:20 | Inpatient (IN) | payer MEDICARE, MEDICAID ==
[~2024-09-17] VITALS: Ht 162.6 cm; Wt 84.9 kg
[~2024-09-17 10:20] MED LIST changes: +BUPR-50 PO; -BUPR-514 PO; +OMEP-148 PO; -OMEP20 PO
[2024-09-17] MEDS ORDERED: ZOLPIDEM TARTRATE 10 MG TABLET PO PRN (11:00)
[2024-09-17 12:00] LABS: GLUCOMETER DEV NAME(LOC) POC.BV; POC SARS-COV2 AG, FIA NEGATIVE (NEGATIVE)
[2024-09-17 13:49] VITALS: BP 126/74; PULSE 74; RESP 17; TEMP 98.1; O2SAT 99
[2024-09-17 20:53] VITALS: RESP 16
[2024-09-18] MEDS: OMEPRAZOLE 20 MG CAPSULE PO SCH (06:25)
[2024-09-18] MEDS ORDERED: BENZOCAINE/MENTHOL [CEPACOL] LOZENGE PO PRN (08:45)
[2024-09-18] MEDS ORDERED: BACITRACIN 28 GM OINTMENT TP PRN (08:45)
[2024-09-18] MEDS ORDERED: ACETAMINOPHEN 325 MG TABLET PO PRN (08:45)
[2024-09-18] MEDS ORDERED: MAGNESIUM HYDROXIDE SUSPENSION 30 ML UDCUP PO PRN (08:45)
[2024-09-18] MEDS ORDERED: MAG HYDROX/ALUMINUM HYD/SIMETH ES 30 ML SUSPENSION UDCUP PO PRN (08:45)
[2024-09-18] MEDS ORDERED: LOPERAMIDE HCL 2 MG CAPSULE PO PRN (08:45)
[2024-09-18] MEDS ORDERED: DOCUSATE SODIUM 100 MG CAPSULE PO PRN (08:45)
[2024-09-18] MEDS ORDERED: PETROLATUM,WHITE 28 GM JELLY TP PRN (08:45)
[2024-09-18] MEDS ORDERED: ONDANSETRON 4 MG TABLET PO PRN (08:45)
[2024-09-18] MEDS ORDERED: ALBUTEROL SULFATE HFA 90 MCG/PUFF 8 GM INHALER IH PRN (08:45)
[2024-09-18 08:51] VITALS: RESP 17
[2024-09-18] MEDS: ASPIRIN/ACETAMINOPHEN/CAFFEINE 250-250-65 MG TABLET PO PRN (08:51)
[2024-09-18 09:51] VITALS: RESP 16
[2024-09-18] MEDS: BuPROPion HCL XL 150 MG ER TABLET PO SCH (11:48)
[2024-09-18 20:06] VITALS: RESP 18
[2024-09-18 20:09] VITALS: BP 122/84; PULSE 74; RESP 16; TEMP 99; O2SAT 100
[2024-09-18 21:26] VITALS: RESP 18
[2024-09-19 08:11] VITALS: RESP 18
[2024-09-19 08:12] LABS: PLATELET COUNT (AUTO) 256 K/uL (150-450); RED BLOOD CELL COUNT(AUTO) 3.62 MIL/uL (4.00-5.20); RED CELL DISTRIBUTION WIDTH 16.5 % (11.5-14.5); WHITE BLOOD COUNT (AUTO) 4.0 K/uL (4.5-11.0)
[2024-09-19 08:42] LABS: ASPARTATE AMINOTRANSFERASE 12.0 U/L (15-37); CALCIUM, TOTAL 8.4 mg/dL (8.8-10.5); CHOL/HDL RATIO 3.4 (3.9-5.7); CREATININE 0.95 mg/dL (0.60-1.30); GLOMERULAR FILTR. RATE CALC 60.0 mL/min (>60); GLUCOSE,RANDOM 81.0 mg/dL (70-110); LDL CHOL (CALC.) 135.0 mg/dL (0-130); SODIUM SERUM 138.0 mmol/L (136-145); TOTAL PROTEIN, SERUM 6.2 g/dL (6.4-8.2); UREA NITROGEN, BLOOD 21.0 mg/dL (7-18)
[2024-09-19 10:25] VITALS: RESP 18
[2024-09-19 11:25] VITALS: RESP 18
[2024-09-19 18:21] VITALS: RESP 18
[2024-09-19 19:21] VITALS: RESP 18
[2024-09-19 20:12] VITALS: BP 107/70; PULSE 72; RESP 19; TEMP 97.7; O2SAT 100
[2024-09-20 07:09] VITALS: BP 96/68; PULSE 66; RESP 16; TEMP 97.2; O2SAT 98
[2024-09-20] MEDS: ASPIRIN/ACETAMINOPHEN/CAFFEINE 250-250-65 MG TABLET PO PRN (07:37)
[2024-09-20 08:07] VITALS: RESP 18
[2024-09-20 08:08] LABS: APPEARANCE,URINE CLEAR (CLEAR); GLUCOSE, URINE (UA) NEGATIVE (NEGATIVE); LEUKOCYTE ESTERASE ,URINE SMALL (NEGATIVE); NITRATE,URINE NEGATIVE (NEGATIVE); OCCULT BLOOD,URINE TRACE (NEGATIVE); PH,URINE DRUG SCREEN 5.5 (5.0-8.0); SPECIFIC GRAVITIY, URINE 1.035 (1.003-1.030)
[2024-09-20 08:17] LABS: ALCOHOL, URINE DRUG SCREEN NEGATIVE (NEGATIVE); AMPHET/METH SCREEN,URINE NEGATIVE (NEGATIVE); BARBITURATE SCREEN, URINE NEGATIVE (NEGATIVE); CANNABINOID SCREEN,URINE POSITIVE (NEGATIVE); COCAINE SCREEN,URINE NEGATIVE (NEGATIVE); METHADONE SCREEN, URINE NEGATIVE (NEGATIVE)
[2024-09-20 08:38] LABS: CALCIUM OXALATE CRYSTALS,UR Moderate /LPF (None Seen); SQUAMOUS EPITHELIAL CELL,UR Moderate /LPF (None Seen)
[2024-09-20] MEDS: NITROFURANTOIN MONOHYD/M-CRYST 100 MG CAPSULE [MACROBID] PO SCH (09:00)
[2024-09-20 10:17] VITALS: BP 108/69; PULSE 79; RESP 18; TEMP 96.9; O2SAT 100
[2024-09-20 18:41] VITALS: RESP 18; O2SAT 100
[2024-09-20 19:41] VITALS: RESP 18
[2024-09-20 20:14] VITALS: BP 121/64; PULSE 75; RESP 19; TEMP 98.1; O2SAT 98
[2024-09-20] MEDS: ROSUVASTATIN CALCIUM 10 MG TABLET PO SCH (20:53)
[2024-09-21 08:37] VITALS: BP 127/87; PULSE 95; RESP 17; TEMP 97.7; O2SAT 100
[2024-09-21 09:02] VITALS: BP 98/59; PULSE 70; RESP 17; TEMP 97.7; O2SAT 99
[2024-09-21 09:44] VITALS: BP 123/61; PULSE 84; RESP 16; TEMP 97.6; O2SAT 99
[2024-09-21 20:10] VITALS: BP 131/90; PULSE 72; RESP 18; TEMP 97.9; O2SAT 97
[2024-09-22 08:31] VITALS: RESP 18; O2SAT 98
[2024-09-22 08:35] VITALS: BP 105/63; PULSE 66; RESP 18; TEMP 96.8; O2SAT 98
[2024-09-22 09:31] VITALS: RESP 18; O2SAT 98
[2024-09-22 16:33] VITALS: RESP 18; O2SAT 98
[2024-09-22 17:33] VITALS: RESP 17; O2SAT 98
[2024-09-22 20:19] VITALS: BP 120/72; PULSE 68; RESP 17; TEMP 98.1; O2SAT 98
[2024-09-23 08:15] VITALS: BP 100/60; PULSE 61; RESP 18; TEMP 97.6; O2SAT 98
[2024-09-23 08:56] VITALS: RESP 18
[2024-09-23 09:56] VITALS: RESP 17
[2024-09-23 17:02] VITALS: RESP 18
[2024-09-23 20:25] VITALS: BP 125/87; PULSE 76; RESP 16; TEMP 98.2; O2SAT 98
[2024-09-24 08:26] VITALS: BP 103/65; PULSE 78; RESP 17; TEMP 97; O2SAT 99
[2024-09-24 09:05] VITALS: RESP 17
[2024-09-24 10:05] VITALS: RESP 17
[2024-09-24 17:26] VITALS: RESP 17
[2024-09-24 18:26] VITALS: RESP 17
[2024-09-24 20:09] VITALS: BP 105/71; PULSE 76; RESP 17; TEMP 98.9; O2SAT 99
[2024-09-25 07:37] VITALS: RESP 17
[2024-09-25 08:11] VITALS: BP 113/61; PULSE 73; RESP 18; TEMP 98.1; O2SAT 100
[2024-09-25 15:00] VITALS: RESP 18
[2024-09-25 15:37] VITALS: RESP 18
[2024-09-25 20:34] VITALS: BP 120/72; PULSE 82; RESP 18; TEMP 97.8; O2SAT 99
[2024-09-26 02:38] VITALS: BP 135/75; PULSE 75; RESP 18; TEMP 97.7; O2SAT 98
[2024-09-26] MEDS: LACTULOSE 20 GM/30 ML SOLUTION UDCUP PO PRN (12:53)
[2024-09-26 13:03] VITALS: BP 120/71; PULSE 92; RESP 17; TEMP 97.5; O2SAT 98
[2024-09-26 16:57] VITALS: RESP 17
[2024-09-26 17:57] VITALS: RESP 18
[2024-09-26 20:46] VITALS: BP 121/56; PULSE 80; RESP 16; TEMP 97.6
[2024-09-27 08:52] VITALS: BP 111/77; PULSE 71; RESP 18; TEMP 98.3
[2024-09-27] MEDS: FERROUS SULFATE 325 MG EC TABLET PO SCH (16:35)
[2024-09-27] MEDS ORDERED: ZOLPIDEM TARTRATE 10 MG TABLET PO PRN (19:00)
[2024-09-27] MEDS ORDERED: BACITRACIN 28 GM OINTMENT TP PRN (20:00)
[2024-09-27 20:08] VITALS: BP 113/70; PULSE 64; RESP 18; TEMP 97.2
[2024-09-28 04:58] VITALS: BP 124/89; PULSE 68; RESP 18; TEMP 98.1
[2024-09-28 13:02] VITALS: RESP 18
[2024-09-28 13:32] VITALS: BP 118/82; PULSE 84; RESP 17; TEMP 98.4; O2SAT 98
[2024-09-28 14:02] VITALS: RESP 17
[2024-09-28 20:07] VITALS: BP 96/63; PULSE 69; RESP 20; TEMP 98.1; O2SAT 99
[2024-09-28 22:27] VITALS: RESP 18
[2024-09-29 06:29] VITALS: BP 105/74; PULSE 100; RESP 18; O2SAT 98
[2024-09-29 07:28] VITALS: RESP 17; O2SAT 98
[2024-09-29 08:42] VITALS: BP 103/78; PULSE 73; RESP 18; TEMP 97.5; O2SAT 99
[2024-09-29 15:02] VITALS: RESP 18; O2SAT 99
[2024-09-29 16:02] VITALS: RESP 17; O2SAT 99
[2024-09-29 20:08] VITALS: BP 127/86; PULSE 87; RESP 17; TEMP 98.8; O2SAT 100
[2024-09-30 05:11] VITALS: BP 117/85; PULSE 85; RESP 18; TEMP 97.9; O2SAT 97
[2024-09-30 08:16] VITALS: BP 94/62; PULSE 80; RESP 16; TEMP 96.8; O2SAT 98
[2024-09-30 13:40] VITALS: BP 108/70; PULSE 82; RESP 16; TEMP 97.1; O2SAT 99
[2024-09-30 14:40] VITALS: RESP 16
[2024-09-30 20:07] VITALS: BP 134/67; PULSE 77; RESP 18; TEMP 97.7; O2SAT 98
[2024-10-01] VITALS (8 sets, daily range): BP systolic 107–130; BP diastolic 64–86; PULSE 71–100; RESP 16–17; TEMP 96.8–98.3; O2SAT 96–99
[2024-10-01] MEDS: IBUPROFEN 600 MG TABLET PO PRN (06:20)
[2024-10-02 00:49] VITALS: BP 104/69; PULSE 97; RESP 18
[2024-10-02 10:13] VITALS: RESP 18
[2024-10-02 17:37] VITALS: RESP 18
[2024-10-02 20:14] VITALS: BP 133/74; PULSE 70; RESP 18; TEMP 97.7; O2SAT 99
[2024-10-03 04:35] VITALS: RESP 18
[2024-10-03 05:44] VITALS: RESP 18
[2024-10-03 09:35] VITALS: BP 119/56; PULSE 97; RESP 18; TEMP 98.5; O2SAT 100
[2024-10-03 13:26] VITALS: RESP 18; O2SAT 100
[2024-10-03 14:26] VITALS: RESP 17; O2SAT 100
[2024-10-03 20:18] VITALS: BP 117/76; PULSE 80; RESP 17; TEMP 97.7; O2SAT 98
[2024-10-04 02:44] VITALS: BP 102/86; PULSE 102; RESP 18; TEMP 97.7
[2024-10-04 10:37] VITALS: BP 116/65; PULSE 84; RESP 18; TEMP 98.4; O2SAT 98
[2024-10-04 13:28] VITALS: RESP 18; O2SAT 98
[2024-10-04 14:28] VITALS: RESP 18; O2SAT 98
[2024-10-04 21:40] VITALS: BP 110/69; PULSE 79; RESP 17; TEMP 97; O2SAT 98
[2024-10-05 08:27] VITALS: BP 95/67; PULSE 98; RESP 16; TEMP 97.9; O2SAT 98
[2024-10-05 20:10] VITALS: RESP 18
[2024-10-05 21:10] VITALS: RESP 17
[2024-10-06 05:47] VITALS: BP 106/94; PULSE 83; RESP 18; TEMP 97.5; O2SAT 97
[2024-10-06 09:06] VITALS: BP 95/64; PULSE 72; RESP 17; TEMP 98.1; O2SAT 95
[2024-10-06 14:15] VITALS: RESP 18; O2SAT 96
[2024-10-06 15:15] VITALS: RESP 17
[2024-10-06 20:15] VITALS: BP 115/83; PULSE 80; RESP 19; TEMP 97.8; O2SAT 99
[2024-10-07 03:36] VITALS: BP 107/71; PULSE 78; RESP 17; TEMP 97.9; O2SAT 98
[2024-10-07 04:36] VITALS: RESP 17
[2024-10-07 12:47] VITALS: RESP 18
[2024-10-07 13:47] VITALS: RESP 18
[2024-10-07 22:30] VITALS: BP 120/87; PULSE 80; RESP 16; TEMP 97.9
[2024-10-08 08:11] VITALS: BP 112/77; PULSE 83; RESP 18; TEMP 98.2; O2SAT 98
[2024-10-08 15:11] VITALS: RESP 18; O2SAT 98
[2024-10-08 16:11] VITALS: RESP 18; O2SAT 98
[2024-10-08 20:09] VITALS: BP 126/62; PULSE 66; RESP 17; TEMP 97.8; O2SAT 98
[2024-10-09] MEDS ORDERED: ROSU10TA72 PO (00:39)
[2024-10-09] MEDS ORDERED: OMEP20CA12 PO (00:39)
[2024-10-09] MEDS ORDERED: BUPR-49 PO (00:39)
[2024-10-09] MEDS ORDERED: FERR325T27 PO (00:39)
[2024-10-09] MEDS ORDERED: QUET200T30 PO (00:39)
[2024-10-09 01:32] VITALS: BP 98/68; PULSE 90; RESP 18; TEMP 98.2; O2SAT 99
[2024-10-09 08:10] VITALS: RESP 18
[2024-10-09 08:22] VITALS: BP 111/81; PULSE 96; RESP 18; TEMP 97.4; O2SAT 97
== END 2024-10-09 13:13 | disposition home or self-care (01) | DRG 885 ==
LOC: B2X 11:53 → UNDOADMIN 11:53 → B2S 09-18 13:44
PROVIDERS: ADMIT Psychiatry & Neurology Psychiatry; ATTEND Psychiatry & Neurology Psychiatry
PROC: GZHZZZZ Group Psychotherapy (ICD-10-PCS; principal; 2024-09-18)
PROC: GZ52ZZZ Individual Psychotherapy, Cognitive (ICD-10-PCS; 2024-09-25)
DX: F31.4 Bipolar disorder, current episode depressed, severe, without psychotic features (principal); N39.0 Urinary tract infection, site not specified; R45.851 Suicidal ideations; Z59.00 Homelessness unspecified; F60.3 Borderline personality disorder; F43.10 Post-traumatic stress disorder, unspecified; F60.2 Antisocial personality disorder; G43.909 Migraine, unspecified, not intractable, without status migrainosus; Z20.822 Contact with and (suspected) exposure to COVID-19; D50.9 Iron deficiency anemia, unspecified; K59.00 Constipation, unspecified; M54.50 Low back pain, unspecified; F43.12 Post-traumatic stress disorder, chronic; F41.9 Anxiety disorder, unspecified; G47.00 Insomnia, unspecified; F12.90 Cannabis use, unspecified, uncomplicated; Z88.0 Allergy status to penicillin; Z79.899 Other long term (current) drug therapy
CPT/HCPCS: 80053; 80061; 80307; 81001; 83036; 84436; 84443; 85025; 86592; 87081

== ENCOUNTER 2024-11-27 02:04 | Inpatient (IN) | payer MEDICAID, MEDICARE ==
[~2024-11-27] VITALS: Ht 162.6 cm; Wt 83.9 kg
[2024-11-27 01:30] VITALS: BP 106/87; PULSE 91; RESP 18; TEMP 97.3; O2SAT 98
[~2024-11-27 02:04] MED LIST changes: +BUPR-49 PO; -BUPR-50 PO; +FERR325T27 PO; -OMEP-148 PO; +OMEP20CA12 PO; -QUET200T PO; +QUET200T30 PO; +ROSU10TA98 PO
[2024-11-27 02:50] VITALS: BP 109/82; PULSE 94; RESP 17; TEMP 97.5; O2SAT 97
[2024-11-27 02:56] LABS: GLUCOMETER DEV NAME(LOC) POC.BV; POC SARS-COV2 AG, FIA NEGATIVE (NEGATIVE)
[2024-11-27] MEDS: ZOLPIDEM TARTRATE 10 MG TABLET PO PRN (02:57)
[2024-11-27] MEDS ORDERED: ACETAMINOPHEN 325 MG TABLET PO PRN (08:30)
[2024-11-27] MEDS ORDERED: ONDANSETRON 4 MG TABLET PO PRN (08:30)
[2024-11-27] MEDS ORDERED: MAGNESIUM HYDROXIDE SUSPENSION 30 ML UDCUP PO PRN (08:30)
[2024-11-27] MEDS ORDERED: LOPERAMIDE HCL 2 MG CAPSULE PO PRN (08:30)
[2024-11-27] MEDS ORDERED: NICOTINE 14 MG/24 HOUR PATCH TD PRN (08:30)
[2024-11-27] MEDS ORDERED: ALBUTEROL SULFATE HFA 90 MCG/PUFF 8 GM INHALER IH PRN (08:30)
[2024-11-27] MEDS ORDERED: DOCUSATE SODIUM 100 MG CAPSULE PO PRN (08:30)
[2024-11-27] MEDS ORDERED: PETROLATUM,WHITE 28 GM JELLY TP PRN (08:30)
[2024-11-27] MEDS ORDERED: IBUPROFEN 400 MG TABLET PO PRN (08:30)
[2024-11-27 08:47] VITALS: RESP 18
[2024-11-27] MEDS: ASPIRIN/ACETAMINOPHEN/CAFFEINE 250-250-65 MG TABLET PO PRN (13:04)
[2024-11-27] MEDS: FAMOTIDINE 20 MG TABLET PO SCH (17:59)
[2024-11-27 21:36] VITALS: BP 144/89; PULSE 85; RESP 18; O2SAT 98
[2024-11-27] MEDS: GuaiFENesin/D-METHORPHAN [SUGAR-FREE] 200-20MG/10 ML SYRUP UDCUP PO PRN (22:51)
[2024-11-28 08:21] VITALS: RESP 20
[2024-11-28] MEDS: BuPROPion HCL XL 150 MG ER TABLET PO SCH (09:05)
[2024-11-28 09:25] LABS: PLATELET COUNT (AUTO) 226 K/uL (150-450); RED BLOOD CELL COUNT(AUTO) 3.74 MIL/uL (4.00-5.20); RED CELL DISTRIBUTION WIDTH 19.2 % (11.5-14.5); WHITE BLOOD COUNT (AUTO) 6.8 K/uL (4.5-11.0)
[2024-11-28 09:45] LABS: APPEARANCE,URINE CLEAR (CLEAR); GLUCOSE, URINE (UA) NEGATIVE (NEGATIVE); LEUKOCYTE ESTERASE ,URINE LARGE (NEGATIVE); NITRATE,URINE NEGATIVE (NEGATIVE); OCCULT BLOOD,URINE SMALL (NEGATIVE); PH,URINE DRUG SCREEN 5.5 (5.0-8.0); SPECIFIC GRAVITIY, URINE 1.028 (1.003-1.030)
[2024-11-28 09:46] LABS: ALCOHOL, BLOOD (SERUM) < 3 mg/dL (0-10)
[2024-11-28 09:51] LABS: ALCOHOL, URINE DRUG SCREEN NEGATIVE (NEGATIVE); AMPHET/METH SCREEN,URINE NEGATIVE (NEGATIVE); BARBITURATE SCREEN, URINE NEGATIVE (NEGATIVE); CANNABINOID SCREEN,URINE POSITIVE (NEGATIVE); COCAINE SCREEN,URINE NEGATIVE (NEGATIVE); METHADONE SCREEN, URINE NEGATIVE (NEGATIVE)
[2024-11-28 09:58] LABS: SQUAMOUS EPITHELIAL CELL,UR Few /LPF (None Seen)
[2024-11-28 10:03] LABS: RBC MORPHOLOGY COMMENT ABNORMAL RBC MORPH
[2024-11-28 10:06] LABS: ASPARTATE AMINOTRANSFERASE 18 U/L (15-37); CALCIUM, TOTAL 8.8 mg/dL (8.8-10.5); CHOL/HDL RATIO 3.6 (3.9-5.7); CREATININE 0.76 mg/dL (0.60-1.30); GLOMERULAR FILTR. RATE CALC > 60 mL/min (>60); GLUCOSE,RANDOM 92 mg/dL (70-110); HCG,QUANTITATIVE 4 mIU/mL (0-6); LDL CHOL (CALC.) 105 mg/dL (0-130); SODIUM SERUM 139 mmol/L (136-145); TOTAL PROTEIN, SERUM 6.2 g/dL (6.4-8.2); UREA NITROGEN, BLOOD 19 mg/dL (7-18)
[2024-11-28] MEDS: ASPIRIN/ACETAMINOPHEN/CAFFEINE 250-250-65 MG TABLET PO PRN (13:48)
[2024-11-28 14:48] VITALS: RESP 20
[2024-11-28] MEDS: DICLOFENAC SODIUM 1% 100 GM GEL [2GM] TP PRN (16:45)
[2024-11-28 20:33] VITALS: BP 112/79; PULSE 72; RESP 20; TEMP 97.8; O2SAT 97
[2024-11-28] MEDS ORDERED: LORazepam 2 MG/ML VIAL ONE (20:34)
[2024-11-28] MEDS: LORazepam 2 MG/ML VIAL IM ONE (20:45)
[2024-11-29] VITALS (8 sets, daily range): BP systolic 138; BP diastolic 88; PULSE 85; RESP 17–18; TEMP 97; O2SAT 97
[2024-11-29] MEDS: IBUPROFEN 800 MG TABLET PO PRN (14:24)
[2024-11-30] VITALS (7 sets, daily range): BP systolic 114; BP diastolic 87; PULSE 86; RESP 16–19; O2SAT 96
[2024-11-30] MEDS: ASPIRIN/ACETAMINOPHEN/CAFFEINE 250-250-65 MG TABLET PO PRN (11:21)
[2024-12-01 01:18] VITALS: RESP 20
[2024-12-01 02:15] VITALS: RESP 18
[2024-12-01] MEDS ORDERED: LORazepam 2 MG/ML VIAL ONE (11:31)
[2024-12-01] MEDS: LORazepam 2 MG/ML VIAL IM ONE (12:35)
[2024-12-01] MEDS: FERROUS SULFATE 325 MG EC TABLET PO SCH (17:00)
[2024-12-01 20:42] VITALS: RESP 18
[2024-12-02 02:32] VITALS: RESP 18
[2024-12-02 03:32] VITALS: RESP 17
[2024-12-02 08:17] VITALS: BP 106/69; PULSE 89; RESP 16; TEMP 97.6; O2SAT 97
[2024-12-02] MEDS: LACTULOSE 20 GM/30 ML SOLUTION UDCUP PO PRN (09:53)
[2024-12-02 20:33] VITALS: BP 129/82; PULSE 85; RESP 18; TEMP 97.9; O2SAT 100
[2024-12-02 23:46] VITALS: BP 105/74; PULSE 96; RESP 18; O2SAT 98
[2024-12-03] MEDS: METHYL SALICYLATE/MENTHOL 85 GM CREAM TP PRN (03:03)
[2024-12-03 04:44] VITALS: RESP 18
[2024-12-03] MEDS: MAG HYDROX/ALUMINUM HYD/SIMETH ES 30 ML SUSPENSION UDCUP PO PRN (05:42)
[2024-12-03 08:17] VITALS: RESP 18
[2024-12-03] MEDS ORDERED: BUPR-50 PO (10:59)
[2024-12-03] MEDS ORDERED: QUET200T PO (11:02)
[2024-12-03] MEDS ORDERED: FAMO20 PO ×2 (11:05→22:50)
[2024-12-03] MEDS ORDERED: LEVO-72 PO (11:05)
[2024-12-03] MEDS ORDERED: FERR325T27 PO ×2 (11:08→22:50)
== END 2024-12-03 12:12 | disposition home or self-care (01) | DRG 750 ==
LOC: B2S 02:07 → B3A 11-30 13:03
PROVIDERS: ADMIT Psychiatry & Neurology Psychiatry; ATTEND Psychiatry & Neurology Psychiatry
PROC: GZHZZZZ Group Psychotherapy (ICD-10-PCS; principal; 2024-11-27)
PROC: GZ52ZZZ Individual Psychotherapy, Cognitive (ICD-10-PCS; 2024-12-01)
DX: F31.64 Bipolar disorder, current episode mixed, severe, with psychotic features (principal); R45.851 Suicidal ideations; D64.9 Anemia, unspecified; E78.5 Hyperlipidemia, unspecified; F43.12 Post-traumatic stress disorder, chronic; G43.909 Migraine, unspecified, not intractable, without status migrainosus; Z20.822 Contact with and (suspected) exposure to COVID-19; K59.00 Constipation, unspecified; E66.3 Overweight; F41.9 Anxiety disorder, unspecified; N39.0 Urinary tract infection, site not specified; Z68.31 Body mass index [BMI] 31.0-31.9, adult; Z59.00 Homelessness unspecified; Z79.899 Other long term (current) drug therapy; Z81.8 Family history of other mental and behavioral disorders; Z88.0 Allergy status to penicillin
CPT/HCPCS: 80053; 80061; 80307; 81001; 83036; 84436; 84439; 84443; 84702; 85025; 86592; 87081; 87086; G0480; J1200; J1630; J2060